=== PATIENT | male | born 1980 | race Caucasian/White ===

== ENCOUNTER → 2017-11-09 14:13 | Outpatient (CLI) | payer MEDICAID, SELFPAY ==
--- NOTE | 2017-11-09 14:15 | US_ITS ---
STUDY: SCROTUM ULTRASOUND REASON FOR EXAM: Male, 37 years old. Pain/tenderness of the left testicle. TECHNIQUE: Ultrasound evaluation of the scrotum was performed with color Doppler and static tejeda-scale imaging. COMPARISON: None. FINDINGS: RIGHT TESTICLE INTRATESTICULAR: There is a normal size of the right testicle. The right testicle measures 4.7 cm x 3.4 cm x 2.7 cm. There is a homogenous echotexture. There is normal arterial and normal venous vascularity. There is no demonstrated right testicular mass or cyst. EXTRATESTICULAR: The epididymis is normal in size. The epididymis head measures 0.5 cm x 0.9 cm x 0.9 cm. There is normal vascularity of the epididymis. There is no demonstrated epididymal cystic structure. There is no demonstrated hydrocele. There is no demonstrated varicocele. There is no demonstrated extratesticular mass or cyst. LEFT TESTICLE INTRATESTICULAR: There is a normal size of the left testicle. The left testicle measures 4.0 cm x 3.8 cm x 2.6 cm. There is a homogenous echotexture. There is normal arterial and normal venous vascularity. There is no demonstrated left testicular mass or cyst. EXTRATESTICULAR: The epididymis is enlarged. The epididymis head measures 1.2 cm x 1.9 cm x 1.4 cm. There is normal vascularity of the epididymis. There is no demonstrated epididymal cystic structure. There is no demonstrated hydrocele. There are prominent extratesticular veins consistent with a varicocele. There is no demonstrated extratesticular mass or cyst. US/Testicular with Arterial Flow IMPRESSION: Enlarged left epididymis suggestive of epididymitis. Small left varicocele. Electronically Signed: Julio C Dent MD at 14:50 EST Tel [phone], Service support ,
== END ==
PROVIDERS: Family Provider Family Medicine; PCP Family Medicine; Visit Provider Family Medicine
DX: N50.812 Left testicular pain (principal)
CPT/HCPCS: 76870; 93976

== ENCOUNTER 2018-01-19 17:23 | Emergency (ER) | payer MEDICAID, SELFPAY ==
[2018-01-19 17:24] VITALS: BP 160/104; PULSE 99; RESP 17; TEMP 36.5; O2SAT 98; BMI 55.3
--- NOTE | 2018-01-19 17:42 | EKG12_ITS ---
Test Reason : CP Blood Pressure : / mmHG Vent. Rate : 098 BPM Atrial Rate : 098 BPM P-R Int : 194 ms QRS Dur : 122 ms QT Int : 374 ms P-R-T Axes : 037 -27 022 degrees QTc Int : 477 ms Normal sinus rhythm Normal ECG Confirmed by TIMOTEO NICHOLE MD ([id number]), purchasing expeditor HANANE MARTIN ([id number]) on 01/22/2018 12:45:58 PM Referred By: Confirmed By:TIMOTEO NICHOLE MD
--- NOTE | 2018-01-19 17:42 | RAD_ITS ---
STUDY: X-RAY CHEST REASON FOR EXAM: Male, 37 years old. Chest pain TECHNIQUE: A single frontal view of the chest was obtained. COMPARISON: June 17, 2017 FINDINGS: The lungs are underaerated. There are minimal increased markings in both lung bases. There is no demonstrated pleural abnormality. There is mild enlargement of the cardiac silhouette. The mediastinum and hilar regions are unremarkable. Normal visualized pulmonary arteries. Normal visualized aortic arch and descending thoracic aorta. The thoracic spine is unremarkable. The visualized ribs, clavicles, and shoulders are unremarkable. There is no demonstrated abnormality of the visualized upper abdomen. RAD/Chest 1 View (Portable) IMPRESSION: No acute cardiopulmonary abnormalities or changes. There is mild enlargement of the cardiac silhouette and bibasilar atelectasis due to low volume inspiration. Electronically Signed: Karen Trevizo MD at 18:10 EDT Tel Direct: [phone], Service support ,
[2018-01-19 17:52] VITALS: BP 157/102; PULSE 86
[2018-01-19 17:55] VITALS: O2SAT 97
[2018-01-19 18:01] VITALS: BP 161/97; PULSE 99
[2018-01-19] MEDS: 0.9% Normal Saline 1,000 ML 1000 ML IV (18:02)
[2018-01-19 18:12] LABS: Absolute Neutrophil Count 5.3 X10^3/uL (2.0-7.7); Basophil# 0.02 X10^3/uL; Basophil% 0.2 % (0-1); Eosinophil# 0.16 X10^3/uL; Eosinophils% 1.9 % (0-5); Hematocrit 40.4 % (40-54); Hemoglobin 13.3 g/dl (13.0-16.5); Lymphocyte % 24.9 % (19-41); Mean Corp Hgb Conc 32.9 g/gl (32-36); Mean Corpuscular Hgb 28.2 pg (27.0-32.0); Mean Corpuscular Volume 85.8 fL (80-94); Mean Platelet Vol. 9.9 fl (6.2-12.0); Monocyte# 0.78 X10^3/uL; Monocyte% 9.3 % (0-10); Neutrophil # 5.31 X10^3/uL (2.7-7.7); Neutrophil % 63.1 % (47-70); Platelet Count 200 K/mm3 (150-450); RBC Distribution Width CV 14.4 % (11.6-14.6); RBC Distribution Width SD 45.5 fl (35.1-43.9); Red Blood Count 4.71 M/mm3 (4.6-6.2); White Blood Count 8.4 K/mm3 (4.4-11.0)
[2018-01-19 18:13] LABS: POSITIVE COUNT NO; POSITIVE DIFFERENTIAL NO; POSITIVE MORPHOLOGY NO
[2018-01-19 18:29] LABS: D-Dimer Quantitative (DVT/PE) 0.31 FEU/ug/m (0.27-0.49)
[2018-01-19 18:30] LABS: Anion Gap 8 (5-15); BUN 15 mg/dL (7-18); BUN/Creat Ratio 23.5 RATIO (10-20); Calcium,Total 8.5 mg/dL (8.5-10.1); Chloride 109 mmol/L (98-107); Creatinine, Serum 0.64 mg/dL (0.70-1.30); EST Glomerular Filtration Rate 151 mL/min (>60); Est Glom Filt Rate - Afr Amer 183 mL/min (>60); Estimated Creatinine Clearance 182.06 ml/min; Glucose 102 mg/dL (74-106); Potassium 3.1 mmol/L (3.5-5.1); Sodium Level 143 mmol/L (136-145)
[2018-01-19] MEDS: Acetaminophen 500 MG Tablet 1000 MG PO (18:40)
[2018-01-19 18:44] VITALS: BP 156/102; PULSE 83; RESP 21; O2SAT 96
--- NOTE | 2018-01-19 18:54 | ED.DCSUM_ITS ---
- ER Visit Summary Date of Service: 01/19/18 Chief Complaint: Chest pain History of Present Illness: The patient is a [address] Marin. He reports that he has chest pain that began today. Initially it was intermittent pain lasting a few seconds at a time. However, he reports is been constant for the past 2 hours. He describes as a stabbing pain on the left side of his chest. Zeta 10 at worst and 6 out of 10 currently. Is worsened by movement and relieved by rest. Reports that he has had nausea and shortness of breath with this. He denies any vomiting or diaphoresis. Physical Examination: Vitals: Stable. Afebrile. General: Well-nourished and well-developed. Head: Normocephalic atraumatic. Neck: Supple, no lymphadenopathy. No JVD. Nontender. Cardiovascular: Regular rate and rhythm. No murmurs. Respiratory: No respiratory distress. Clear to auscultation bilaterally. Abdominal: Soft, nontender, nondistended, normal bowel sounds. No guarding, rebound, or peritoneal signs. Back: Nontender. Extremities: Nontender, no edema. Skin: Normal color, no rash. Neurologic: Alert and oriented ?3. Cranial nerves II through XII are intact. Normal strength and sensation. Psych: Normal affect. Test Results: EKG is sinus at 98 and is unchanged from September of this year. Troponin is negative. D-dimer is negative. Chem-7 is marked potassium 3.1, chloride of 109, creatinine 0.64. CBC is normal. Chest x-ray shows poor inspiration no acute disease. CTA of the chest shows a 5 cm ascending thoracic aneurysm without dissection. No PE. Emergency Department Course and Treatment: Patient was treated with aspirin and Tylenol. He is resting comfortably. I discussed the patient the need for repeat enzymes to make sure this is not cardiac in etiology. He has refused these and has chosen to leave AGAINST MEDICAL ADVICE. He understands that I cannot say for certain this is not cardiac in etiology and still would like to leave. Regarding the ascending thoracic aneurysm I reviewed his prior CTs. This has been listed anywhere from 4-5.2 cm since October 2016. The patient's aortic size index is 1.69 cm/meter squared. I do not believe that this is the source the patient's pain today. Treatment Plan: The patient chose to leave AGAINST MEDICAL ADVICE. Is instructed to follow-up with Dr. Marin as soon as possible. Disposition: To home in improved and stable condition. Impression: 1. Atypical chest pain. 2. 5 cm thoracic aortic aneurysm. 3. Left AGAINST MEDICAL ADVICE. This note was generated with [employer] dictation software. It may contain incorrect words, spelling, and punctuation that were not noted in review of the chart prior to signing ED Disposition - Plan for ED Patient: Disposition: Home or Assisted Living Chief Complaint: Chest Pain Referrals: Abiel Marin DO [Primary Care Provider] -
--- NOTE | 2018-01-19 19:02 | CT_ITS ---
STUDY: CTA CHEST REASON FOR EXAM: Male, 37 years old. Chest pain, shortness of breath RADIATION DOSAGE (If Supplied By Facility): CTDIvol = ( 17.56 ) mGy, DLP = ( 712.34 ) mGycm TECHNIQUE: The examination was performed with the intravenous administration of 100 ml of Isovue 370 contrast material. Post-processing of the angiographic images was performed, with multiplanar reformation and 3D reconstruction. Individualized dose optimization techniques were used for this CT. COMPARISON: Chest radiograph from the same day; chest CTA dated October 11, 2017 FINDINGS: Normal enhancement of the main pulmonary artery and right and left pulmonary arteries without filling defects. There is limited enhancement of the bilateral peripheral pulmonary arteries. The thoracic aorta is unremarkable. There is no demonstrated aortic dissection. The heart is normal in size. The mediastinum is unremarkable. The hilar regions are unremarkable. The airways are unremarkable. There is dependent atelectasis in both lungs. There are no focal airspace opacities. There is no demonstrated pleural abnormality. The soft tissues are unremarkable. There are mild degenerative changes in the visualized spine. There are no significant abnormalities in the visualized upper abdomen. CT/CTA Chest W/WO Contrast IMPRESSION: There is no evidence of pulmonary embolism in the main pulmonary arteries. The distal branches are suboptimally evaluated due to suboptimal contrast bolus and breathing motion. There are no focal parenchymal abnormalities. There is no pleural effusion or significant lymphadenopathy. Electronically Signed: Karen Trevizo MD at 20:15 EDT Tel Direct: [phone], Service support ,
[2018-01-19 19:07] VITALS: BP 143/89; PULSE 85; RESP 16; O2SAT 96
--- NOTE | 2018-01-19 19:54 | NURSING ---
talked with the doctor and stated to me that he will not order the pt any opioid pain medications. the last time the pt was admitted to the hospital he signed out AMA because he wouldn't get pain meds
--- NOTE | 2018-01-19 20:31 | NURSING ---
pt left ama, refused to get a repeat troponin. signed the appropriate paperwork
== END 2018-01-19 20:32 | disposition left against medical advice (07) ==
LOC: ED 17:40
PROVIDERS: Emergency Provider Emergency Medicine; Family Provider Family Medicine; PCP Family Medicine
DX: R07.89 Other chest pain (principal); I71.2 Thoracic aortic aneurysm, without rupture; G47.33 Obstructive sleep apnea (adult) (pediatric); Z72.0 Tobacco use; Z79.899 Other long term (current) drug therapy
CPT/HCPCS: 71045; 71275; 80048; 84484; 85025; 85379; 93005; 96360; 96361; 99285; J7030; Q9967; A4216

== ENCOUNTER 2018-03-02 15:19 | Emergency (ER) | payer MEDICAID, SELFPAY ==
--- NOTE | 2018-03-02 15:19 | DT_ITS ---
This patient was seen during an EMR downtime March 01, 2018 - March 08, 2018. This patient may have a combination of paper and electronic documentation or all paper documentation. All documentation is viewable within the e-chart portion of [facility] for each patient visit.
== END 2018-03-02 16:20 | disposition home or self-care (01) ==
LOC: ED 03-04 07:54
PROVIDERS: Emergency Provider Emergency Medicine; Family Provider Family Medicine; PCP Family Medicine
DX: G43.909 Migraine, unspecified, not intractable, without status migrainosus (principal); I10 Essential (primary) hypertension; F98.8 Other specified behavioral and emotional disorders with onset usually occurring in childhood and adolescence; F41.9 Anxiety disorder, unspecified; F32.9 Major depressive disorder, single episode, unspecified; F17.210 Nicotine dependence, cigarettes, uncomplicated; Z79.899 Other long term (current) drug therapy
CPT/HCPCS: 96372; 99282; J3030

== ENCOUNTER → 2018-03-04 14:30 | Outpatient (CLI) | payer MEDICAID, SELFPAY ==
--- NOTE | 2018-03-04 14:30 | DT_ITS ---
This patient was seen during an EMR downtime March 01, 2018 - March 08, 2018. This patient may have a combination of paper and electronic documentation or all paper documentation. All documentation is viewable within the e-chart portion of [employer] for each patient visit.
[2018-03-09 01:56] LABS: BUN 14 mg/dL (7-18)
[2018-03-09 01:57] LABS: AST(SGOT) 16 U/L (15-37); Alanine Aminotransfer ALT/SGPT 78 U/L (16-61); Albumin, Serum 3.6 g/dL (3.2-5.0); Alkaline Phosphatase 74 U/L (45-117); Anion Gap 9 (5-15); BUN/Creat Ratio 21.5 RATIO (10-20); Chloride 107 mmol/L (98-107); Creatinine, Serum 0.65 mg/dL (0.70-1.30); EST Glomerular Filtration Rate 149 mL/min (>60); Est Glom Filt Rate - Afr Amer 181 mL/min (>60); Globulin 3.7 g/dL (2.2-4.2); Lipase 191 U/L (73-393); Potassium 3.9 mmol/L (3.5-5.1); Protein, Total 7.3 g/dL (6.4-8.2); Sodium Level 140 mmol/L (136-145)
[2018-03-09 01:58] LABS: Glucose 94 mg/dL (74-106)
[2018-03-09 01:59] LABS: Hematocrit 46.5 % (40-54); Hemoglobin 14.9 g/dl (13.0-16.5); Mean Corpuscular Hgb 27.3 pg (27.0-32.0); Mean Corpuscular Volume 85.2 fL (80-94); Red Blood Count 5.46 M/mm3 (4.6-6.2); White Blood Count 9.1 K/mm3 (4.4-11.0)
[2018-03-09 02:00] LABS: Absolute Lymphocyte Count 2.38 X10^3/ul (0.83-4.51); Absolute Neutrophil Count 5.8 X10^3/uL (2.0-7.7); Basophil% 0.2 % (0-1); Eosinophil# 0.13 X10^3/uL; Eosinophils% 1.4 % (0-5); Lymphocyte # 2.38 X10^3/ul (4.0); Lymphocyte % 26.1 % (19-41); Mean Platelet Vol. 10.4 fl (6.2-12.0); Monocyte# 0.79 X10^3/uL; Monocyte% 8.7 % (0-10); Neutrophil # 5.79 X10^3/uL (2.7-7.7); Neutrophil % 63.4 % (47-70); POSITIVE COUNT NO; POSITIVE DIFFERENTIAL NO; POSITIVE MORPHOLOGY NO; Platelet Count 266 K/mm3 (150-450); RBC Distribution Width SD 46.5 fl (35.1-43.9)
[2018-03-09 02:01] LABS: Basophil# 0.02 X10^3/uL
== END ==
PROVIDERS: Family Provider Family Medicine; PCP Family Medicine; Visit Provider Family Medicine
DX: R10.9 Unspecified abdominal pain (principal)
CPT/HCPCS: 36415; 80053; 83690; 85025

== ENCOUNTER → 2018-03-15 10:14 | Outpatient (CLI) | payer MEDICAID, SELFPAY ==
[2018-03-15 12:49] LABS: Anion Gap 10 (5-15); BUN 13 mg/dL (7-18); BUN/Creat Ratio 18.1 RATIO (10-20); Calcium,Total 8.2 mg/dL (8.5-10.1); Chloride 105 mmol/L (98-107); Creatinine, Serum 0.72 mg/dL (0.70-1.30); EST Glomerular Filtration Rate 132 mL/min (>60); Est Glom Filt Rate - Afr Amer 159 mL/min (>60); Glucose 143 mg/dL (74-106); Potassium 3.9 mmol/L (3.5-5.1); Sodium Level 138 mmol/L (136-145)
== END ==
PROVIDERS: Family Provider Family Medicine; PCP Family Medicine
DX: I10 Essential (primary) hypertension (principal); K21.9 Gastro-esophageal reflux disease without esophagitis; G47.33 Obstructive sleep apnea (adult) (pediatric); E66.01 Morbid (severe) obesity due to excess calories; Z68.43 Body mass index [BMI] 50.0-59.9, adult
CPT/HCPCS: 36415; 80048

== ENCOUNTER 2018-06-21 17:35 | Emergency (ER) | payer MEDICAID, SELFPAY ==
[2018-06-21 17:37] VITALS: BP 154/123; PULSE 92; RESP 18; TEMP 36.6; O2SAT 99; BMI 52.7
--- NOTE | 2018-06-21 18:03 | ED.VISSUMM ---
- ER Visit Summary Date of Service: 06/21/18 Chief Complaint: Depressed and suicidal ideation History of Present Illness: The patient is a 38 M history of depression and patient states approximately a week ago he was suicidal and injected methamphetamine because he thought that would kill him. He is not very forthcoming with information because he states he does not want his primary care physician to know about this. He does go to the counseling center. Years ago in [place] he had a prior suicide attempt. And was admitted to a psychiatric facility. Physical Examination: Young male vital signs are stable and afebrile. Initial blood pressure is elevated 154/123. H EENT exam unremarkable. Neck nontender. Lungs clear to auscultation bilaterally. Heart regular rhythm no murmur. Abdomen obese but soft nontender normal bowel sounds no peritoneal signs. He is moving all 4 extremities. Neurovascular intact. No signs of trauma. No track joy. Neurologically is awake alert with no focal motor deficits. Back nontender. Test Results: ED mental health screening labs. CBC normal except for a white count of 12.2. Electrolytes unremarkable. Gap of 5. Tox screen positive for amphetamines. Alcohol negative. Emergency Department Course and Treatment: Patient be evaluated by the counseling center for possible admission to a psychiatric facility for depression and suicidal ideation. Treatment Plan: Repeat exam patient is doing well at 2027. Patient will undergo a counseling center evaluation to determine final disposition after myself and Reinaldo King talk. Disposition: [] Impression: Acute on chronic depression Suicidal ideation This note was generated with [employer] dictation software. It may contain incorrect words, spelling, and punctuation that were not noted in review of the chart prior to signing ED Disposition - Plan for ED Patient: Chief Complaint: Suicidal Referrals: Care Physician,No Primary [Primary Care Provider] -
[2018-06-21 18:50] VITALS: BP 132/91; PULSE 80; RESP 14; O2SAT 96
[2018-06-21 18:54] LABS: Absolute Lymphocyte Count 2.79 X10^3/ul (0.83-4.51); Absolute Neutrophil Count 8.3 X10^3/uL (2.0-7.7); Basophil# 0.02 X10^3/uL; Basophil% 0.2 % (0-1); Hematocrit 47.2 % (40-54); Lymphocyte # 2.79 X10^3/ul (4.0); Lymphocyte % 22.9 % (19-41); Mean Corp Hgb Conc 31.8 g/gl (32-36); Mean Corpuscular Hgb 26.8 pg (27.0-32.0); Mean Corpuscular Volume 84.3 fL (80-94); Monocyte# 1.07 X10^3/uL; Monocyte% 8.8 % (0-10); Neutrophil % 67.9 % (47-70); POSITIVE COUNT NO; POSITIVE DIFFERENTIAL NO; POSITIVE MORPHOLOGY NO; Platelet Count 249 K/mm3 (150-450); RBC Distribution Width SD 49.6 fl (35.1-43.9); White Blood Count 12.2 K/mm3 (4.4-11.0)
[2018-06-21 19:10] LABS: Anion Gap 5 (5-15); BUN 17 mg/dL (7-18); BUN/Creat Ratio 18.2 RATIO (10-20); Calcium,Total 8.6 mg/dL (8.5-10.1); Chloride 104 mmol/L (98-107); Creatinine, Serum 0.93 mg/dL (0.70-1.30); EST Glomerular Filtration Rate 97 mL/min (>60); Est Glom Filt Rate - Afr Amer 118 mL/min (>60); Glucose 117 mg/dL (74-106); Potassium 3.7 mmol/L (3.5-5.1); Sodium Level 138 mmol/L (136-145)
--- NOTE | 2018-06-21 19:15 | ED.RN ---
PT STS DOES NOT WANT MOTRIN, DID NOT GIVE PER PT REQUEST. ALSO REPORTS THAT HE DOESN'T KNOW MEDICATIONS BECAUSE THEY ARE ALWAYS CHANGING.
[2018-06-21 19:45] LABS: Amphetamine Urine VISTA POSITIVE (<1000 ng/mL); Barbiturate Urine VISTA NEGATIVE (< 200 ng/mL); Benzodiazepine Urine VISTA NEGATIVE (< 200 ng/mL); Cocaine Urine VISTA NEGATIVE (< 300 ng/mL); Ecstacy Urine VISTA NEGATIVE (< 500 ng/mL); Methadone Urine VISTA NEGATIVE (< 300 ng/mL); PCP Urine VISTA NEGATIVE (< 25 ng/mL); THC Urine VISTA NEGATIVE (< 50 ng/mL); Vista UDS pH Range 6
[2018-06-21 19:48] LABS: Alcohol, Blood (Medical)-Serum < 3.0 mg/dL
[2018-06-21] MEDS: oxyCODONE 5 MG Tablet PO ×2 (20:17→21:55)
--- NOTE | 2018-06-21 23:22 | ED.RN ---
PT COMPLAINS OF MIDSTERNAL CHEST PAIN THAT STARTED APPROX [id number], DR. WU MADE AWARE, EKG ORDERED.
--- NOTE | 2018-06-21 23:23 | EKG12_ITS ---
Test Reason : [facility] [place] Blood Pressure : / mmHG Vent. Rate : 078 BPM Atrial Rate : 078 BPM P-R Int : 174 ms QRS Dur : 104 ms QT Int : 392 ms P-R-T Axes : 043 -26 010 degrees QTc Int : 446 ms Normal sinus rhythm Leftward axis Inferior infarct , age undetermined , cannot be excluded Abnormal ECG Confirmed by FAROOQ ALLEN, NATY ([id number]), editor city HANANE MARTIN ([id number]) on 06/25/2018 2:04:53 PM Referred By: HUA Confirmed By:NATY TRIVEDI MD
[2018-06-22 00:34] VITALS: BP 131/89; PULSE 75; RESP 16; O2SAT 96
[2018-06-22] MEDS: LORazepam 1 MG Tablet PO (00:43)
--- NOTE | 2018-06-22 01:02 | ED.RN ---
PT REQUESTING ADDITIONAL MEDICATION TO HELP ME RELAX. DR. SEQUEIRA MADE AWARE, NO ADDITIONAL ORDERS AT THIS TIME. PT RESTING IN ROOM WITH EYES CLOSED. SITTER AT BEDSIDE.
--- NOTE | 2018-06-22 01:56 | ED.RN ---
DR. SEQUEIRA MADE AWARE THAT PATIENT IS REQUESTING ADDITIONAL MEDICATION FOR ANXIETY. DR. SEQUEIRA TO ROOM, PT RESTING WITH EYES CLOSED. SITTER REMAINS AT BEDSIDE.
[2018-06-22 06:30] VITALS: BP 118/75; PULSE 73; RESP 16; TEMP 36.5; O2SAT 96
[2018-06-22 06:32] VITALS: BP 118/75; PULSE 73; RESP 16; O2SAT 96
[2018-06-22] MEDS: MELATONIN 10 MG TABLET PO (06:37)
--- NOTE | 2018-06-22 07:16 | ED.RN ---
REQUESTED AND ORDERED BREAKFAST TRAY
[2018-06-22] MEDS: oxyCODONE 5 MG Tablet 10 MG PO (07:50)
[2018-06-22 07:52] VITALS: PULSE 70; RESP 14; TEMP 36.6; O2SAT 97
--- NOTE | 2018-06-22 08:03 | ED.RN ---
[facility] ARRIVED FOR TRANSPORT TO [facility]. BELONGINGS IN [place]AFE COUNTED AND RETURNED.
== END 2018-06-22 08:12 ==
LOC: ED 18:11
PROVIDERS: Emergency Provider Emergency Medicine
DX: F32.9 Major depressive disorder, single episode, unspecified (principal); R45.851 Suicidal ideations; I10 Essential (primary) hypertension; M19.90 Unspecified osteoarthritis, unspecified site; Z72.0 Tobacco use; Z79.899 Other long term (current) drug therapy; Z91.5 Personal history of self-harm
CPT/HCPCS: 36415; 80048; 80307; 80320; 85025; 93005; 99285; G0480

== ENCOUNTER → 2018-07-09 13:30 | Outpatient (CLI) | payer MEDICAID, SELFPAY | PROVIDERS: Family Provider Family Medicine; PCP Family Medicine; Visit Provider Family Medicine | DX: Z20.9 Contact with and (suspected) exposure to unspecified communicable disease (principal); Z51.81 Encounter for therapeutic drug level monitoring ==

== ENCOUNTER 2018-08-04 17:22 | Emergency (ER) | payer MEDICAID, SELFPAY ==
[2018-08-04 17:23] VITALS: BP 156/90; PULSE 85; RESP 20; TEMP 36.1; O2SAT 99; BMI 50.2
[2018-08-04] MEDS: LORazepam 1 MG Tablet PO (18:04)
[2018-08-04 18:11] LABS: Absolute Neutrophil Count 5.4 X10^3/uL (2.0-7.7); Basophil# 0.02 X10^3/uL; Basophil% 0.2 % (0-1); Eosinophil# 0.24 X10^3/uL; Eosinophils% 2.6 % (0-5); Hemoglobin 15.2 g/dl (13.0-16.5); Lymphocyte % 30.1 % (19-41); Mean Corpuscular Hgb 27.7 pg (27.0-32.0); Mean Corpuscular Volume 83.9 fL (80-94); Mean Platelet Vol. 10.5 fl (6.2-12.0); Monocyte# 0.85 X10^3/uL; Monocyte% 9.1 % (0-10); Neutrophil # 5.38 X10^3/uL (2.7-7.7); Neutrophil % 57.8 % (47-70); POSITIVE COUNT NO; POSITIVE DIFFERENTIAL NO; POSITIVE MORPHOLOGY NO; Platelet Count 236 K/mm3 (150-450); RBC Distribution Width CV 15.7 % (11.6-14.6); RBC Distribution Width SD 48.4 fl (35.1-43.9); Red Blood Count 5.48 M/mm3 (4.6-6.2); White Blood Count 9.3 K/mm3 (4.4-11.0)
[2018-08-04 18:24] LABS: Anion Gap 7 (5-15); BUN 11 mg/dL (7-18); BUN/Creat Ratio 13.2 RATIO (10-20); Calcium,Total 8.3 mg/dL (8.5-10.1); Chloride 106 mmol/L (98-107); Creatinine, Serum 0.83 mg/dL (0.70-1.30); EST Glomerular Filtration Rate 111 mL/min (>60); Est Glom Filt Rate - Afr Amer 134 mL/min (>60); Estimated Creatinine Clearance 139.05 ml/min; Glucose 100 mg/dL (74-106); Potassium 3.4 mmol/L (3.5-5.1); Sodium Level 139 mmol/L (136-145)
[2018-08-04] MEDS: SUMAtriptan 6 MG/0.5 ML Vial SC (19:00)
[2018-08-04 19:16] LABS: Alcohol, Blood (Medical)-Serum < 3.0 mg/dL
[2018-08-04 19:24] VITALS: BP 142/100; PULSE 75; RESP 16; O2SAT 96
[2018-08-04] MEDS: Ziprasidone IM 20 MG/ML VIAL IM (20:03)
[2018-08-04 20:13] VITALS: RESP 16
--- NOTE | 2018-08-04 20:25 | ED.RN ---
PT WAS BECOMING MORE AND MORE AGITATED AFTER HIS EX-BOYFRIEND CAME TO SEE HIM. PT BECAME VERY ANGRY AND UPSET, PT EX-BOYFRIEND THEN LEFT. PT STARTED YELLING AND BECOMING EXTREMELY RED IN THE FACE. PT STARTED YELLING I NEED SOMETHING RIGHT NOW TO CALM ME DOWN AND I DON'T WANT A PILL, I NEED A SHOT. I ATTEMPTED TO CALM PT BY TALKING TO HIM AND TOLD HIM THAT I WOULD GO TALK TO DR KIRKPATRICK FOR MORE MEDICATION. PT WAS ORDERED ORAL ATIVAN BY DR KIRKPATRICK. PT WAS BECOMING MORE DISTRAUGHT AND YELLING MORE AND MORE.
[2018-08-04 20:33] LABS: Amphetamine Urine VISTA POSITIVE (<1000 ng/mL); Barbiturate Urine VISTA NEGATIVE (< 200 ng/mL); Benzodiazepine Urine VISTA NEGATIVE (< 200 ng/mL); Cocaine Urine VISTA NEGATIVE (< 300 ng/mL); Ecstacy Urine VISTA NEGATIVE (< 500 ng/mL); Methadone Urine VISTA NEGATIVE (< 300 ng/mL); PCP Urine VISTA NEGATIVE (< 25 ng/mL); THC Urine VISTA NEGATIVE (< 50 ng/mL); Vista UDS pH Range 6
[2018-08-04] MEDS: Midazolam 2 MG/2 ML Syringe IM ×2 (20:39→22:42)
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
--- NOTE | 2018-08-04 20:53 | ED.RN ---
KIERSTEN FROM [facility] IS HERE TO SEE PT.
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
[2018-08-04 21:21] VITALS: RESP 18
[2018-08-04] MEDS: Gabapentin 600 MG Tablet PO (22:39)
[2018-08-04] MEDS: Pramipexole Di-HCl 0.25 MG Tablet PO (22:40)
[2018-08-04] MEDS: oxyCODONE 5 MG Tablet 10 MG PO (22:40)
[2018-08-04] MEDS: Haloperidol Lactate 5 MG/ML Vial IM (22:42)
[2018-08-04 22:56] VITALS: BP 133/94; PULSE 88; RESP 16; O2SAT 97
[2018-08-04 23:10] VITALS: RESP 16
--- NOTE | 2018-08-04 23:10 | EKG12_ITS ---
Test Reason : [facility] [place] Blood Pressure : / mmHG Vent. Rate : 083 BPM Atrial Rate : 083 BPM P-R Int : 170 ms QRS Dur : 120 ms QT Int : 390 ms P-R-T Axes : 048 007 032 degrees QTc Int : 458 ms Normal sinus rhythm Non-specific intra-ventricular conduction delay Borderline ECG Confirmed by DAYANARA ALLEN, TIMOTEO ([id number]), science editor HANANE MARTIN ([id number]) on 08/05/2018 3:47:35 PM Referred By: DR KIRKPATRICK Confirmed By:TIMOTEO NICHOLE MD
[2018-08-04 23:33] LABS: AST(SGOT) 12 U/L (15-37); Alanine Aminotransfer ALT/SGPT 32 U/L (16-61); Albumin, Serum 3.3 g/dL (3.2-5.0); Alkaline Phosphatase 76 U/L (45-117); Bilirubin, Direct 0.06 mg/dL (0.00-0.30); Globulin 3.5 g/dL (2.2-4.2); Protein, Total 6.8 g/dL (6.4-8.2)
[2018-08-05] VITALS (14 sets, daily range): BP systolic 128–169; BP diastolic 69–93; PULSE 72–100; RESP 13–20; TEMP 36.4; O2SAT 97
--- NOTE | 2018-08-05 01:03 | ED.RN ---
[facility] called and requesting more information about patient. information obtained and faxed at this time
--- NOTE | 2018-08-05 01:57 | CT_ITS ---
STUDY: CT ABDOMEN AND PELVIS WITHOUT CONTRAST REASON FOR EXAM: Male, 38 years old. Sagittal ideation low back pain, history of hypertension, AAA. RADIATION DOSAGE (If Supplied By Facility): CTDIvol = ( 23.98 ) mGy, DLP = ( 1485.72 ) mGycm TECHNIQUE: Transaxial 2.5 mm images were obtained from the dome of the diaphragm to the symphysis pubis without oral contrast, and without intravenous contrast. Sagittal and coronal images were reconstructed. This examination is limited for the evaluation of gastrointestinal, solid organs and vascular structures due to the lack of intravenous and oral contrast. There is obesity, the entirety of soft tissue is not imaged. Individualized dose optimization techniques were used for this CT. COMPARISON: CT abdomen and pelvis 12/12/2016. CTA chest 01/19/2018. FINDINGS: There is compression of the basilar parenchyma. The visualized portions of the heart are within normal limits. There is decreased attenuation of the enlarged liver consistent with steatosis. Distended gallbladder and normal extrahepatic biliary system. Gallbladder wall cannot be assessed due to motion. Normal spleen. Normal pancreas. Normal bilateral adrenal glands. Stable vague low-attenuation right mid renal cortex.. Normal left kidney. Normal visualized stomach. Normal small intestine. Normal colon. The appendix is visualized and appears normal. Minimal arteriosclerosis of the abdominal aorta and pelvic arteries. Normal inferior vena cava. Normal retroperitoneum. Normal urinary bladder. There are prostatic calcifications. Normal abdominal wall. Mild degenerative changes bilateral hip joints and lumbar spine, chronic bilateral L5 spondylolysis without anterolisthesis. CT/Abdomen/Pelvis without Cont IMPRESSION: There is no appendicitis, colitis, ascites, hydronephrosis abscess, collection, perforation or obstruction. Hepatomegaly, hepatic steatosis, morbid obesity, minimal arteriosclerosis, prostate calcification and degenerative changes felt to be not acute findings. Electronically Signed: Maria Elena Carey MD at 2:44 EST , Service support ,
--- NOTE | 2018-08-05 02:01 | ED.RN ---
[facility] called requesting repeat CT scan to determine if patients AAA has increased at all from previous
[2018-08-05] MEDS: Metoprolol(XL)Succ 200 MG Tablet PO (08:48)
[2018-08-05] MEDS: Losartan Potassium 100 MG Tablet PO (08:49)
[2018-08-05] MEDS: Citalopram 40 MG TABLET PO (08:49)
[2018-08-05] MEDS: oxyCODONE 5 MG Tablet 10 MG PO (08:49)
[2018-08-05] MEDS: Gabapentin 800 MG Tablet 1600 MG PO (09:00)
[2018-08-05] MEDS: Ziprasidone IM 20 MG/ML VIAL IM ×2 (09:00→16:10)
[2018-08-05] MEDS: SUMAtriptan 6 MG/0.5 ML Vial SC (16:25)
--- NOTE | 2018-08-05 18:02 | NURSING ---
LOUISE, [facility], HERE FOR PATIENT
== END 2018-08-05 19:35 ==
LOC: ED 18:59
PROVIDERS: Emergency Provider Emergency Medicine
DX: F32.9 Major depressive disorder, single episode, unspecified (principal); T14.91XA Suicide attempt, initial encounter; X78.8XXA Intentional self-harm by other sharp object, initial encounter; Y93.9 Activity, unspecified; Y92.9 Unspecified place or not applicable; Y99.9 Unspecified external cause status; I10 Essential (primary) hypertension; E66.9 Obesity, unspecified; Z72.0 Tobacco use; Z79.899 Other long term (current) drug therapy
CPT/HCPCS: 74176; 80048; 80076; 80307; 80320; 85025; 93005; 96372; 99285; G0480; J3030; J3486

== ENCOUNTER 2019-02-24 03:38 | Emergency (ER) | payer MEDICAID, SELFPAY ==
[2019-02-24 03:40] VITALS: BP 209/134; PULSE 117; RESP 24; TEMP 36.6; O2SAT 98; BMI 49.2
[2019-02-24 03:43] VITALS: TEMP 36.6
--- NOTE | 2019-02-24 04:03 | ED.RN ---
MADE AWARE OF SEPSIS ALERT. STATES SHE WILL SEE THE PATIENT PRIOR TO MAKING DECISIONS ON ORDERS.
--- NOTE | 2019-02-24 04:09 | CT_ITS ---
HISTORY: LOWER ABD PAIN ON/OFF X DAYS, CONSTANT AND SEVERE TODAY, HX HTN EXAMINATION: CT Abdomen And Pelvis W/ Contrast TECHNIQUE: Helically acquired images were obtained of the abdomen and pelvis following IV contrast. A radiation dose optimization technique was used for this scan. IV Contrast dosage and agent: 100ML Isovue 300 Oral contrast: None. COMPARISON: 08/05/2018 FINDINGS: Lower thorax: Minor dependent atelectasis, not unusual. No pleural effusion or pericardial effusion. Mild hepatomegaly, unchanged. No biliary dilatation or focal hepatic lesion. Normal gallbladder, spleen, and pancreas. Both kidneys are normal in position. Bilateral renal opacification without evidence of hydronephrosis or suspicious renal lesion. Probable small parapelvic cyst at the upper pole of the right kidney. Adrenal glands are not enlarged. Abdominal aorta is atherosclerotic and normal in caliber. Patent IVC. No ascites or retroperitoneal lymph node enlargement. GI tract: Constipation pattern. No obstruction. Normal appendix. No pericolonic inflammatory changes seen. Pelvis: No free fluid or lymph node enlargement. Normal urinary bladder. The prostate gland is not enlarged. Bones: No acute osseous abnormality. CT/Abdomen/Pelvis WITH Contrast IMPRESSION: 1. Constipation pattern. No acute abdominal disease identified. Normal appendix. 2. Mild hepatomegaly, unchanged. Individualized dose optimization techniques were used for this CT. at 0623 Reported and signed by: Darrell Saldana MD Electronically Signed: Darrell Saldana, at 6:22 EDT Tel , Service support ,
[2019-02-24] MEDS: Ondansetron 4 MG/2 ML Vial IV (04:16)
[2019-02-24] MEDS: Morphine 4 MG/ML Syringe IV ×2 (04:16→05:43)
[2019-02-24 04:18] LABS: Mucous, Urine 0 SEEN /hpf (<or=2+); Red Blood Cells-Urine 0 SEEN /hpf (0-5)
[2019-02-24 04:19] LABS: Absolute Lymphocyte Count 2.89 X10^3/ul (0.83-4.51); Absolute Neutrophil Count 7.5 X10^3/uL (2.0-7.7); Basophil# 0.03 X10^3/uL; Basophil% 0.3 % (0-1); Eosinophil# 0.17 X10^3/uL; Eosinophils% 1.4 % (0-5); Hematocrit 47.1 % (40-54); Hemoglobin 15.4 g/dl (13.0-16.5); Lymphocyte # 2.89 X10^3/ul (4.0); Lymphocyte % 24.4 % (19-41); Mean Corp Hgb Conc 32.7 g/gl (32-36); Mean Corpuscular Volume 82.6 fL (80-94); Mean Platelet Vol. 10.1 fl (6.2-12.0); Monocyte# 1.12 X10^3/uL; Monocyte% 9.5 % (0-10); Neutrophil # 7.52 X10^3/uL (2.7-7.7); Neutrophil % 63.6 % (47-70); POSITIVE COUNT NO; POSITIVE DIFFERENTIAL NO; POSITIVE MORPHOLOGY NO; Platelet Count 235 K/mm3 (150-450); RBC Distribution Width CV 14.9 % (11.6-14.6); RBC Distribution Width SD 44.3 fl (35.1-43.9); White Blood Count 11.8 K/mm3 (4.4-11.0)
[2019-02-24 04:19] LABS: Color, Urine Yellow (Yellow); Glucose, Dipstick Normal (Normal); Ketone-Dipstick Negative (Negative); Leukocyte Esterase-Dipstick 25 /ul (Negative); Nitrite-Dipstick Negative (Negative); Occult Blood-Urine 10 /ul (Negative); Protein-Dipstick Negative (Negative); Urine Bilirubin Dipstick Negative (Negative); Urine Clarity Clear (Clear); Urine Urobilinogen Normal (Normal)
[2019-02-24 04:26] LABS: Bacteria RARE /hpf (None Seen); Squamous Epithelial Cells - UA 0-5 SEEN /hpf (0-5); White Blood Cells 0-5 SEEN /hpf (0-5)
[2019-02-24 04:32] LABS: ALB/GLOB Ratio 0.8 RATIO (0.9-2.4); AST(SGOT) 17 U/L (15-37); Alanine Aminotransfer ALT/SGPT 39 U/L (16-61); Albumin, Serum 3.1 g/dL (3.2-5.0); Alkaline Phosphatase 75 U/L (45-117); Anion Gap 7 (5-15); BUN 18 mg/dL (7-18); BUN/Creat Ratio 26.9 RATIO (10-20); Calcium,Total 8.7 mg/dL (8.5-10.1); Chloride 104 mmol/L (98-107); Creatinine, Serum 0.67 mg/dL (0.70-1.30); EST Glomerular Filtration Rate 142 mL/min (>60); Est Glom Filt Rate - Afr Amer 172 mL/min (>60); Estimated Creatinine Clearance 172.26 ml/min; Globulin 3.9 g/dL (2.2-4.2); Glucose 131 mg/dL (74-106); Lipase 261 U/L (73-393); Potassium 3.7 mmol/L (3.5-5.1); Sodium Level 141 mmol/L (136-145)
[2019-02-24 04:37] VITALS: BP 168/118; PULSE 96; RESP 18; O2SAT 99
--- NOTE | 2019-02-24 04:48 | ED.VISSUMM ---
- ER Visit Summary Date of Service: 02/24/19 Chief Complaint: Abdominal pain History of Present Illness: The patient is a 38 M presenting with abdominal pain. He states this has been ongoing for the past 4 days. He has pain around his umbilicus. He states that this has been worsening over the past 4 days. He has nausea with no vomiting. He denies diarrhea or constipation. Denies urinary complaints. Denies fever. Denies chest pain or shortness of breath. He has a history of aortic aneurysm which is being monitored. He has history of diabetes and hypertension. He states he stopped taking his medication in July. He states he has a scheduled appointment with his primary care physician to restart his medications. Physical Examination: Vitals are stable. Blood pressure 209/134, heart rate 117. Patient is afebrile. Alert no acute distress. HEENT exam is unremarkable. Neck is supple. Lungs are clear and equal bilaterally. Heart is regular rate and rhythm. Abdomen is soft periumbilical tenderness with no rebound or guarding Extremities are unremarkable. Skin is warm and dry. No focal neurologic deficit. Remainder of exam is unremarkable. Emergency Department Course and Treatment: Patient was given IV fluids, morphine, Zofran. CBC shows a white count 11.8. Chemistries unremarkable other than glucose 131. Liver lipase are normal. Urinalysis unremarkable. CT abdomen pelvis shows constipation pattern. No acute abdominal disease identified. Normal appendix. Mild hepatomegaly, unchanged. Repeat blood pressure 163/100. I offered to refill his blood pressure medications. He states he will see his primary care physician in the next 1 to 2 days. He declined medication refill. He is advised importance of blood pressure recheck and blood pressure control. He states he understands. He is given mag citrate. He is advised to follow up with his primary care physician. Advised return ED if worsening complaints. Disposition: Discharge home Impression: Abdominal pain, constipation, hypertension, noncompliance This note was generated with [employer] dictation software. It may contain incorrect words, spelling, and punctuation that were not noted in review of the chart prior to signing ED Disposition - Plan for ED Patient: Instructions: ED Abdominal Pain Unkn Cause Referrals: Abiel Marin DO [Primary Care Provider] -
[2019-02-24 05:13] VITALS: BP 163/100; PULSE 78; RESP 18
[2019-02-24] MEDS: proMETHazine 25 MG/ML Syringe 6.25 MG IV (05:42)
--- NOTE | 2019-02-24 06:44 | ED.DEP ---
ED Disposition - Plan for ED Patient: Instructions: ED Abdominal Pain Unkn Cause Referrals: Abiel Marin DO [Primary Care Provider] -
[2019-02-24 06:52] VITALS: BP 186/128; PULSE 104; RESP 22; O2SAT 96
--- NOTE | 2019-02-24 06:53 | ED.RN ---
PT EXPRESSED DISPLEASURE WITH HIS DIAGNOSIS OF CONSTIPATION AND STATED I CAN'T BELIEVE THIS IS CONSTIPATION, I DON'T WANT THE MEDICATION TO GO POOP, AND IM NOT WAITING FOR DISCHARGE PAPERS. DR. GUTIERREZ AWARE OF ELEVATED VITALS AT D/C AND PT REFUSAL OF MEDICATION AND D/C PAPERS.
== END 2019-02-24 06:54 | disposition home or self-care (01) ==
PROVIDERS: Emergency Provider Emergency Medicine; Family Provider Family Medicine; PCP Family Medicine
DX: R10.9 Unspecified abdominal pain (principal); K59.00 Constipation, unspecified; E11.9 Type 2 diabetes mellitus without complications; I10 Essential (primary) hypertension; R16.0 Hepatomegaly, not elsewhere classified; Z72.0 Tobacco use; Z91.14 Patient's other noncompliance with medication regimen; Z86.79 Personal history of other diseases of the circulatory system
CPT/HCPCS: 74177; 80053; 81001; 83690; 85025; 96374; 96375; 96376; 99285; J7030; J7040; Q9967; A4216; J2405

== ENCOUNTER → 2019-03-01 15:50 | Outpatient (CLI) | payer MEDICAID, SELFPAY ==
[2019-02-28 08:59] VITALS: BMI 49.2
[2019-03-01 18:21] LABS: HIV - WCH Non-Reactive (Nonreactive); Hepatitis C Antibody Non-Reactive (Nonreactive)
[2019-03-01 21:26] LABS: Chlamydia Trachomatis by PCR Negative (Negative); Neisserai gonorrhoeae by PCR Negative (Negative); Probe Check PASS; Sample Adequacy Control PASS; Specimen Processing Control PASS
[2019-03-04 03:32] LABS: Rapid Plasmin Reagin (RPR) NONREACTIVE (NONREACTIVE)
== END ==
PROVIDERS: Family Provider Family Medicine; PCP Family Medicine; Visit Provider Family Medicine
DX: Z20.9 Contact with and (suspected) exposure to unspecified communicable disease (principal)
CPT/HCPCS: 36415; 86592; 86703; 86803; 87491; 87591

== ENCOUNTER 2019-07-22 19:09 | Emergency (ER) | payer MEDICAID, SELFPAY ==
[2019-02-28 08:59] VITALS: BMI 49.2
[2019-07-22 19:10] VITALS: BP 180/127; PULSE 104; RESP 20; TEMP 36.2; O2SAT 99; BMI 47.5
--- NOTE | 2019-07-22 19:40 | RAD_ITS ---
STUDY: X-RAY CHEST REASON FOR EXAM: Male, 39 years old. Chest pain. TECHNIQUE: Portable chest. COMPARISON: 01/19/2018. FINDINGS: The lungs are clear and expanded. There is no demonstrated pleural abnormality. Normal size heart. Normal mediastinum and devi. Normal visualized pulmonary arteries. Normal visualized aortic arch and descending thoracic aorta. Normal visualized thoracic spine. Normal visualized ribs, clavicles, and shoulders. There is no demonstrated abnormality of the visualized soft tissue structures of the upper abdomen. RAD/Chest 1 View (Portable) IMPRESSION: Normal x-ray examination of the chest. Electronically Signed: Mary Irvin MD at 20:06 EDT Tel , Service support ,
[2019-07-22 19:44] VITALS: O2SAT 99
[2019-07-22 20:08] LABS: Absolute Lymphocyte Count 2.81 X10^3/uL (0.83-4.51); Absolute Neutrophil Count 5.6 X10^3/uL (2.0-7.7); Basophil# 0.07 X10^3/uL; Basophil% 0.7 % (0-1); Eosinophils% 2.1 % (0-5); Hematocrit 51.5 % (40-54); Hemoglobin 16.2 g/dL (13.0-16.5); Lymphocyte # 2.81 X10^3/ul (4.0); Lymphocyte % 29.4 % (19-41); Mean Corp Hgb Conc 31.5 g/dL (32-36); Mean Corpuscular Hgb 27.5 pg (27.0-32.0); Mean Corpuscular Volume 87.4 fL (80-94); Mean Platelet Vol. 9.7 fl (6.2-12.0); Monocyte# 0.82 X10^3/uL; Monocyte% 8.6 % (0-10); NRBC Flagged by Analyzer 0 % (0-5); Neutrophil # 5.61 X10^3/uL (2.7-7.7); Neutrophil % 58.7 % (47-70); Platelet Count 282 K/mm3 (150-450); RBC Distribution Width CV 13.7 % (11.6-14.6); Red Blood Count 5.89 M/mm3 (4.6-6.2); White Blood Count 9.6 K/mm3 (4.4-11.0)
--- NOTE | 2019-07-22 20:16 | ED.RN ---
Addendum entered by Shonda Young 07/22/19 20:18: I encouraged pt to return to ED at any time. Original Note: While trying to medicate pt he became anxious and agitated. Explained headache cocktail meds. PT asked what he was getting for anxiety, I said we were starting with Benadryl first and then I could ask the doctor for something different. PT states Benadryl doesn't work like that for me. PT requested IV out. PT stated his headache and chest pain were gone and that was what he was worried about. PT states he can manage his anxiety at home better with distraction, a cigarette and Mountain Dew. Dr. Muñoz updated. PT left with his mother who is his health advisor. PT stated he was sorry for wasting our time..
[2019-07-22 20:28] LABS: Anion Gap 5 (5-15); BUN 16 mg/dL (7-18); BUN/Creat Ratio 21.9 RATIO (10-20); Calcium,Total 9.3 mg/dL (8.5-10.1); Chloride 103 mmol/L (98-107); Creatinine, Serum 0.73 mg/dL (0.70-1.30); EST Glomerular Filtration Rate 128 mL/min (>60); Est Glom Filt Rate - Afr Amer 155 mL/min (>60); Estimated Creatinine Clearance 156.58 ml/min; Glucose 97 mg/dL (74-106); Sodium Level 141 mmol/L (136-145)
--- NOTE | 2019-07-23 00:07 | ED.VIS.GEN ---
History of Present Illness Chief Complaint: Chest Pain Detail of Chief Complaint: Chest pain, migraine, anxiety Informant: Patient Onset: - - Chest pain today, migraine x4 days Narrative: Patient presents with what he believes is an anxiety attack. He had an Abilify shot 3 weeks ago for his bipolar disorder. This is the first time he is received Abilify. He states since that time he had frequent migraines and several anxiety attacks. He states he woke up this afternoon with chest pain and sweating. Symptoms lasted approximately 30 minutes and then resolved. Patient was initially seen an hour and a half after his complaints. Patient states he had a migraine headache for the past 4 days. It usually occurs around the left eye or the left occiput. He has been taking Imitrex with minimal improvement. His primary concern is that he has been told he has a history of aortic aneurysm. Past Medical History - Allergies and Home Meds Allergies/Adverse Reactions: Allergies ketorolac [From Toradol] Allergy (Verified 07/22/19 19:14) Other cephalexin [From Keflex] Adverse Reaction (Verified 07/22/19 19:14) Vomiting divalproex sodium [From Depakote] Adverse Reaction (Verified 07/22/19 19:14) dizzy Opioids - Morphine Analogues Adverse Reaction (Verified 07/22/19 19:14) irritable topiramate Adverse Reaction (Verified 07/22/19 19:14) Unknown varenicline [From Chantix] Adverse Reaction (Verified 07/22/19 19:14) irritation zolpidem Adverse Reaction (Verified 07/22/19 19:14) sleepwalking Primary Care Physician: Abiel Marin DO [Primary Care Provider] - Prior records reviewed: Yes Past Medical History: - - Reviewed Surgical History: tonsillectomy Lives: With Family Smoking Status: Current every day smoker - Family History Maternal Family History: Family History (Last Reviewed 03/24/18 @ 11:27 by Vanessa Blanco) Mother Diabetes Hypertension Heart disease Father Diabetes Hypertension Sister Myocardial infarction Family History: Reports: - - mother had heart attack 60 Paternal Family History: Family History (Last Reviewed 03/24/18 @ 11:27 by Vanessa Blanco) Mother Diabetes Hypertension Heart disease Father Diabetes Hypertension Sister Myocardial infarction Family History: Reports: - - father had heart disease in his late 30's Review of Systems General: Denies: Chills, Fever Eyes: Denies: Visual changes - bilaterally ENT: Denies: Bilateral ear pain Cardiovascular: Reports: Chest pain - Now resolved Respiratory: Denies: Dyspnea, Cough Gastrointestinal: Denies: Abdominal pain, Nausea, Vomiting, Diarrhea Musculoskeletal: Denies: Extremity Pain Skin: Denies: Rash Neurological: Reports: Headache Psych: Reports: Anxiety Physical Exam Inital Vital Signs reviewed: Yes General: Well nourished, Well developed Head: Normocephalic ENT: Moist mucous membranes Neck: Supple Cardiovascular: Regular rate, Regular rhythm Respiratory: No distress, CTA bilaterally Abdomen: Soft, Nontender, Hypoactive bowel sounds Extremities: Nontender Skin: Normal color, Diaphoresis Neurological: Alert, Oriented x3 Psychological: - - Anxious Diagnostic/Tx/Re-eval Impressions Chest X-Ray 07/22/19 19:40 IMPRESSION: Normal x-ray examination of the chest. Electronically Signed: Mary Irvin MD at 20:06 EDT Tel , Service support , 07/22/19 19:40 Chest 1 View (Portable) [RAD] Stat Laboratory Results 07/22/19 07/22/19 19:53 19:53 WBC 9.6 RBC 5.89 Hgb 16.2 Hct 51.5 MCV 87.4 MCH 27.5 MCHC 31.5 L RDW Std Deviation 44.0 H RDW Coeff of Funmilayo 13.7 Plt Count 282 MPV 9.7 Immature Gran % (Auto) 0.500 Neut % (Auto) 58.7 Lymph % (Auto) 29.4 Johnston % (Auto) 8.6 Eos % (Auto) 2.1 Baso % (Auto) 0.7 Absolute Neuts (auto) 5.6 Absolute Lymphs (auto) 2.81 Nucleated RBC % 0 Sodium 141 Potassium 4.0 Chloride 103 Carbon Dioxide 33.0 H Anion Gap 5 BUN 16 Creatinine 0.73 Estim Creat Clear Calc 156.58 Est GFR (MDRD) Af Amer 155 Est GFR (MDRD) Non-Af 128 BUN/Creatinine Ratio 21.9 H Glucose 97 Calcium 9.3 Troponin I < 0.015 - EKG Initial EKG Interpretation: Sinus Rhythm - Sinus at 95 with no acute ischemia. - Medical Decision Making At the time of my examination patient states that his chest pain was completely resolved. Blood work was unremarkable. EKG is normal. Patient was given Reglan and Benadryl for migraine. He has an allergy to Toradol and to opioids. I ordered a CTA of his chest once I obtained normal creatinine. I was notified by the nursing staff the patient states that he has no chest pain and he just wants to go home and deal with his anxiety. He was getting dressed and left the emergency room before I could get back to talk to him. ED Disposition - Plan for ED Patient: Disposition: Against Medical Advice Diagnosis: Chest pain, Migraine, Anxiety Referrals: Abiel Marin DO [Primary Care Provider] -
== END 2019-07-22 20:20 | disposition left against medical advice (07) ==
LOC: ED 20:00
PROVIDERS: Emergency Provider Emergency Medicine; Family Provider Family Medicine; PCP Family Medicine
DX: R07.9 Chest pain, unspecified (principal); G43.909 Migraine, unspecified, not intractable, without status migrainosus; F41.9 Anxiety disorder, unspecified; F31.9 Bipolar disorder, unspecified; F17.200 Nicotine dependence, unspecified, uncomplicated; Z79.899 Other long term (current) drug therapy; Z88.5 Allergy status to narcotic agent; Z88.1 Allergy status to other antibiotic agents
CPT/HCPCS: 71045; 80048; 84484; 85025; 93005; 99285; J7030; A4216

== ENCOUNTER 2019-07-23 10:15 | Emergency (ER) | payer MEDICAID, SELFPAY ==
[2019-07-22 19:10] VITALS: BMI 47.5
[2019-07-23 10:16] VITALS: BP 208/134; PULSE 111; RESP 18; TEMP 36.4; O2SAT 98; BMI 47.9
--- NOTE | 2019-07-23 10:31 | CT_ITS ---
STUDY: CTA CHEST, ABDOMEN AND PELVIS WITHOUT CONTRAST REASON FOR EXAM: Male, 39 years old. Chest pain which radiates to the back RADIATION DOSAGE (If Supplied By Facility): CTDIvol = ( 28.97 ) mGy, DLP = ( 1873.85 ) mGycm TECHNIQUE: Transaxial images were obtained through the chest, abdomen and pelvis without oral contrast, and with intravenous contrast. Sagittal and coronal images were reconstructed. Individualized dose optimization techniques were used for this CT. COMPARISON: CT of the abdomen and pelvis dated 02/24/2019. CT of the chest dated 01/19/2018. FINDINGS: There is a stable granuloma in the lingula. There are no pulmonary infiltrates or pleural effusions. There is no pneumothorax. There is no evidence of pulmonary embolus. There is no thoracic lymphadenopathy. The heart and pericardium are within normal limits. There is stable ectasia of the aortic root, measuring up to 4.8 cm. The aortic arch, descending thoracic aorta and abdominal aorta are normal caliber. There is no evidence of aortic dissection. The great vessels are patent and normal in caliber. The celiac artery, superior mesenteric artery, bilateral renal arteries and inferior mesenteric artery are patent and normal in caliber. There are no calcified gallstones present. The liver, spleen, pancreas, adrenal glands and kidneys are within normal limits. There is no bowel obstruction or inflammation. The appendix is normal. There is no free air, free fluid or lymphadenopathy. There are no destructive osseous lesions. CT/CT ANGIO ABD&PEL W/O&W/DYE IMPRESSION: Stable ectasia of the aortic root. Otherwise, normal caliber aorta. No evidence of thoracic aortic aneurysm or dissection. No evidence of pulmonary embolus. No pulmonary infiltrates or pleural effusions. No bowel obstruction or inflammation. Normal appendix. Electronically Signed: Alex Gottlieb, at 11:29 EDT Tel , Service support ,
--- NOTE | 2019-07-23 10:31 | CT_ITS ---
STUDY: CTA CHEST, ABDOMEN AND PELVIS WITHOUT CONTRAST REASON FOR EXAM: Male, 39 years old. Chest pain which radiates to the back RADIATION DOSAGE (If Supplied By Facility): CTDIvol = ( 28.97 ) mGy, DLP = ( 1873.85 ) mGycm TECHNIQUE: Transaxial images were obtained through the chest, abdomen and pelvis without oral contrast, and with intravenous contrast. Sagittal and coronal images were reconstructed. Individualized dose optimization techniques were used for this CT. COMPARISON: CT of the abdomen and pelvis dated 02/24/2019. CT of the chest dated 01/19/2018. FINDINGS: There is a stable granuloma in the lingula. There are no pulmonary infiltrates or pleural effusions. There is no pneumothorax. There is no evidence of pulmonary embolus. There is no thoracic lymphadenopathy. The heart and pericardium are within normal limits. There is stable ectasia of the aortic root, measuring up to 4.8 cm. The aortic arch, descending thoracic aorta and abdominal aorta are normal caliber. There is no evidence of aortic dissection. The great vessels are patent and normal in caliber. The celiac artery, superior mesenteric artery, bilateral renal arteries and inferior mesenteric artery are patent and normal in caliber. There are no calcified gallstones present. The liver, spleen, pancreas, adrenal glands and kidneys are within normal limits. There is no bowel obstruction or inflammation. The appendix is normal. There is no free air, free fluid or lymphadenopathy. There are no destructive osseous lesions. CT/CTA Chest W/WO Contrast IMPRESSION: Stable ectasia of the aortic root. Otherwise, normal caliber aorta. No evidence of thoracic aortic aneurysm or dissection. No evidence of pulmonary embolus. No pulmonary infiltrates or pleural effusions. No bowel obstruction or inflammation. Normal appendix. Electronically Signed: Alex Gottlieb, at 11:29 EDT Tel , Service support ,
--- NOTE | 2019-07-23 10:32 | EKG12_ITS ---
Test Reason : CP Blood Pressure : / mmHG Vent. Rate : 095 BPM Atrial Rate : 095 BPM P-R Int : 174 ms QRS Dur : 116 ms QT Int : 350 ms P-R-T Axes : 000 -28 -13 degrees QTc Int : 439 ms Normal sinus rhythm Normal ECG Confirmed by DAYANARA ALLEN, TIMOTEO ([id number]), continuity editor NOEMY FRANCISCO ([id number]) on 07/26/2019 11:25:55 AM Referred By: EMORY Confirmed By:TIMOTEO NICHOLE MD
--- NOTE | 2019-07-23 10:37 | ED.VIS.CHEST ---
History of Present Illness Chief Complaint: Chest Pain Informant: Patient Onset: Yesterday - About 10-12 hours Activity at onset: Rest Timing: Continuous, Waxes and wanes Quality: Pain Location: - - epigastrium/lower chest; radiates to the low back Worsened By: Nothing Relieved By: Nothing Associated Symptoms: Diaphoresis, Dyspnea, Lightheadedness - Without syncope, Palpitations - Fluttering at times. Negative for: Cough, Fever, Acid Reflux Narrative: Patient has had several episodes, about 2 or 3 total prior to this 1, of this chest discomfort in the past month. The first 1 occurred the night of his first Abilify injection, so he thought it was related. He called the office of the physician who gave it to them, they told him that they were probably side effects he would have to right out. He states prior to that he was taking oral Abilify for bipolar that he had no issues with, so he has since been taken off of that. He states he is supposed to be on other medications that he does not take admittedly. He had a history of some type of heart aneurysm. He was sent to [facility] where he was for a week because of this and did not have surgery but told that he needed to lose weight. He was supposed to have this monitored which he has been doing through his family doctor, states he has had several CT scans evaluating this aneurysm. Since trying to lose weight he has actually lost around 100 pounds. Today, these symptoms started last night and have been waxing and waning all night and persistent which has not happened before. He has been sweating profusely. - Past Medical History (1) Obstructive sleep apnea Status: Chronic (2) Anxiety Status: Chronic (3) Migraine Status: Chronic (4) Aortic root dilatation Status: Chronic (5) HTN (hypertension) Status: Chronic (6) SVT (supraventricular tachycardia) Status: Chronic (7) Bipolar II disorder Status: Chronic Past Medical History - Allergies and Home Meds Allergies/Adverse Reactions: Allergies ketorolac [From Toradol] Allergy (Verified 07/23/19 10:22) Other cephalexin [From Keflex] Adverse Reaction (Verified 07/23/19 10:22) Vomiting divalproex sodium [From Depakote] Adverse Reaction (Verified 07/23/19 10:22) dizzy Opioids - Morphine Analogues Adverse Reaction (Verified 07/23/19 10:22) irritable topiramate Adverse Reaction (Verified 07/23/19 10:22) Unknown varenicline [From Chantix] Adverse Reaction (Verified 07/23/19 10:22) irritation zolpidem Adverse Reaction (Verified 07/23/19 10:22) sleepwalking Primary Care Physician: Abiel Marin DO [Primary Care Provider] - Surgical History: tonsillectomy Smoking Status: Current every day smoker Drugs: None - Family History Maternal Family History: Family History (Last Reviewed 03/24/18 @ 11:27 by Vanessa Blanco) Mother Diabetes Hypertension Heart disease Father Diabetes Hypertension Sister Myocardial infarction Family History: Reports: - - mother had heart attack 60 Paternal Family History: Family History (Last Reviewed 03/24/18 @ 11:27 by Vanessa Blanco) Mother Diabetes Hypertension Heart disease Father Diabetes Hypertension Sister Myocardial infarction Family History: Reports: - - father had heart disease in his late 30's Review of Systems General: Reports: Malaise, Sweats. Denies: Chills, Fever Eyes: Denies: Visual changes - bilaterally, Diplopia ENT: Denies: Rhinorrhea, Sore throat Cardiovascular: Reports: Chest pain - See HPI; nonpleuritic. Denies: Palpitations Respiratory: Reports: Dyspnea, Orthopnea. Denies: Cough, Dyspnea on exertion Gastrointestinal: Reports: Abdominal pain - See HPI. Denies: Nausea, Vomiting, Diarrhea, Melena, Hematochezia Genitourinary: Denies: Dysuria, Hematuria, Frequency Musculoskeletal: Reports: Back pain - Low back pain that comes and goes with chest/epigastrium discomfort. Denies: Neck pain, Swelling, Extremity Pain Skin: Denies: Rash, Wounds Neurological: Denies: Headache, Weakness, Numbness Psych: Reports: Anxiety. Denies: Suicidal thoughts Physical Exam Vital Signs/Narrative: Vital Signs Temp Pulse Resp BP Pulse Ox 07/23/19 10:16 97.6 F L 111 H 18 208/134 H 98 Inital Vital Signs reviewed: Yes General: Well nourished, Well developed, Obese, No Acute Distress - But looks uncomfortable Head: Normocephalic, Atraumatic Eyes: Perrl, EOMI ENT: Moist mucous membranes, No rhinorrhea Neck: Supple, Nontender, No JVD Cardiovascular: Regular rate, Regular rhythm, No murmurs, Tachycardia, - - Equal bilateral 2+/4 radial pulses. Brisk cap refill all toes, but not able to palpate posterior tibial or dorsalis pedis pulses Respiratory: No distress, CTA bilaterally, Chest nontender Abdomen: Soft, Nontender, Nondistended, Normal bowel sounds. Negative for: Pulsatile mass Back: Nontender, Normal Inspection. Negative for: CVA tenderness Extremities: Nontender, No edema. Negative for: Calf Tenderness Skin: Normal color, No rash, Diaphoresis, No Trauma Neurological: Alert, Oriented x3, Cranial nerves II-XII grossly intact, Normal Strength, Normal Sensation, Normal Gait Psychological: Normal Mood, - - Anxious, cooperative Diagnostic/Tx/Re-eval Impressions Abdomen/Pelvis CTA 07/23/19 10:31 IMPRESSION: Stable ectasia of the aortic root. Otherwise, normal caliber aorta. No evidence of thoracic aortic aneurysm or dissection. No evidence of pulmonary embolus. No pulmonary infiltrates or pleural effusions. No bowel obstruction or inflammation. Normal appendix. Electronically Signed: Alex Gottlieb, at 11:29 EDT Tel , Service support , Chest CTA 07/23/19 10:31 IMPRESSION: Stable ectasia of the aortic root. Otherwise, normal caliber aorta. No evidence of thoracic aortic aneurysm or dissection. No evidence of pulmonary embolus. No pulmonary infiltrates or pleural effusions. No bowel obstruction or inflammation. Normal appendix. Electronically Signed: Alex Gottlieb, at 11:29 EDT Tel , Service support , 07/23/19 10:31 CT ANGIO ABD&PEL W/O&W/DYE [CT] Stat CTA Chest W/WO Contrast [CT] Stat Laboratory Results 07/23/19 07/23/19 07/23/19 10:40 10:40 10:40 WBC 9.2 RBC 6.17 Hgb 17.1 H Hct 53.6 MCV 86.9 MCH 27.7 MCHC 31.9 L RDW Std Deviation 43.3 RDW Coeff of Funmilayo 13.6 Plt Count 310 MPV 9.7 Immature Gran % (Auto) 0.800 Neut % (Auto) 60.7 Lymph % (Auto) 28.3 Kendall % (Auto) 7.8 Eos % (Auto) 1.6 Baso % (Auto) 0.8 Absolute Neuts (auto) 5.6 Absolute Lymphs (auto) 2.60 Nucleated RBC % 0 PT 11.9 INR 0.9 APTT 32.5 Sodium 139 Potassium 4.1 Chloride 103 Carbon Dioxide 30.0 Anion Gap 6 BUN 19 H Creatinine 0.72 Estim Creat Clear Calc 158.75 Est GFR (MDRD) Af Amer 157 Est GFR (MDRD) Non-Af 130 BUN/Creatinine Ratio 26.3 H Glucose 114 H Calcium 9.8 Troponin I < 0.015 - Rhythm Strip Rhythm Strip: Sinus Rhythm Rate: 80 Ectopy: None - EKG Initial EKG Interpretation: Sinus Rhythm, No Acute Injury Pattern Prior: Unchanged Treatment: Aspirin, Morphine TY Risk: No Positive TY Elements Score: 0 - Medical Decision Making With talking more with patient, it sounds like he is describing an aortic aneurysm, he thought it was in his chest, but his symptoms make me concerned about an abdominal aortic process. During my exam, I obtained the portable ED ultrasound machine, and try to evaluate his aorta. However due to obesity and bowel gas I was unable to definitively find it. I found an abdominal vessel that was 1 cm in diameter, that is unlikely the aorta. He is very hypertensive, likely due to his history of essential hypertension and medication noncompliance, not hypotensive, he is keenly alert and conversive. I feel he is stable to go to CT, CT angiography of the entire aorta is ordered and I discussed with CT. His CT angiography is negative. He does have stable ectasia of the aortic root that is unchanged without signs of dissection, aneurysm, or pulmonary embolus. The rest of his scan was also negative for anything incidental, I scanned his entire aorta given the symptoms in his epigastrium and lower back. He was very anxious. We treated that as well. On reexamination he said he felt much better, but then his chest discomfort returned. His initial EKG was unremarkable with a slight leftward axis but nothing technically abnormal, I want to repeat this, and he sent the EKG tach away, even though I had treated his anxiety twice, he thinks his chest discomfort is due to that and pulled his IV out and wants to be discharged. We had a discussion about pros and cons here, and when I am able to tell him and what I am not. I also offered further treatments including a GI cocktail as maybe this is his related to his esophagus. He declines and wants to leave. We treated his blood pressure since it was very high and he has essential hypertension and no noncompliance, concerned this could be related to his symptoms, even if he does not have an aortic dissection. We got his blood pressure down to the 140s, and again he is feeling much better but still having recurrent chest pain. He is refusing more work-up. I advised him to take his medication as prescribed, he states he does have it at home so I did not prescribe him another antihypertensive but I did give him a prescription for something for anxiety, which certainly could be related as well. ED Disposition - Plan for ED Patient: Disposition: Against Medical Advice Diagnosis: Chest pain, unspecified, Anxiety, Noncompliance with medication regimen, Thoracic aortic ectasia, Accelerated hypertension Instructions: CHEST PAIN, Uncertain Cause, Anxiety Reaction, Controlling High Blood Pressure Prescriptions: Lorazepam [Ativan] 1 mg PO TID PRN #10 tab PRN Reason: Anxiety Prescription Printed Referrals: Abiel Marin, [Primary Care Provider] - As soon as possible
[2019-07-23] MEDS: LORazepam 2 MG/ML Syringe 0.5 MG IV (10:41)
[2019-07-23] MEDS: 0.9% Normal Saline 1,000 ML 1000 ML IV (10:42)
[2019-07-23 11:07] LABS: Absolute Neutrophil Count 5.6 X10^3/uL (2.0-7.7); Basophil# 0.07 X10^3/uL; Basophil% 0.8 % (0-1); Eosinophil# 0.15 X10^3/uL; Eosinophils% 1.6 % (0-5); Hematocrit 53.6 % (40-54); Hemoglobin 17.1 g/dL (13.0-16.5); Lymphocyte % 28.3 % (19-41); Mean Corp Hgb Conc 31.9 g/dL (32-36); Mean Corpuscular Hgb 27.7 pg (27.0-32.0); Mean Corpuscular Volume 86.9 fL (80-94); Mean Platelet Vol. 9.7 fl (6.2-12.0); Monocyte# 0.72 X10^3/uL; Monocyte% 7.8 % (0-10); NRBC Flagged by Analyzer 0 % (0-5); Neutrophil # 5.58 X10^3/uL (2.7-7.7); Neutrophil % 60.7 % (47-70); Platelet Count 310 K/mm3 (150-450); RBC Distribution Width CV 13.6 % (11.6-14.6); RBC Distribution Width SD 43.3 fl (35.1-43.9); Red Blood Count 6.17 M/mm3 (4.6-6.2); White Blood Count 9.2 K/mm3 (4.4-11.0)
[2019-07-23 11:15] VITALS: BP 184/125; PULSE 91; RESP 16; O2SAT 98
[2019-07-23 11:15] LABS: International Normalized Ratio 0.9; Prothrombin Time (Protime)PT. 11.9 SECONDS (11.7-14.9)
[2019-07-23 11:16] LABS: Partial Thromboplast Time 32.5 Seconds (24.1-36.2)
[2019-07-23 11:32] LABS: Anion Gap 6 (5-15); BUN 19 mg/dL (7-18); BUN/Creat Ratio 26.3 RATIO (10-20); Calcium,Total 9.8 mg/dL (8.5-10.1); Chloride 103 mmol/L (98-107); Creatinine, Serum 0.72 mg/dL (0.70-1.30); EST Glomerular Filtration Rate 130 mL/min (>60); Est Glom Filt Rate - Afr Amer 157 mL/min (>60); Estimated Creatinine Clearance 158.75 ml/min; Glucose 114 mg/dL (74-106); Potassium 4.1 mmol/L (3.5-5.1); Sodium Level 139 mmol/L (136-145)
[2019-07-23] MEDS: Morphine 4 MG/ML Syringe IV (11:33)
[2019-07-23] MEDS: LORazepam 2 MG/ML Syringe 1 MG IV (12:18)
[2019-07-23 12:25] VITALS: BP 188/135; PULSE 89; RESP 18; O2SAT 96
[2019-07-23] MEDS: hydrALAZINE 20 MG/ML Vial 10 MG IV (12:27)
--- NOTE | 2019-07-23 13:07 | ED.RN ---
pt calling out multiple times to speak with Asking for more pain medications and ativan. This RN provides emotional support each time and answers pt's questions. Pt becoming increasingly agitated. Pt has removed his monitor and taken his own IV. Dr Weeks orders repeat EKG for increased chest pain. Pt refuses EKG. Pt requesting to leave, Dr Weeks at bedside going over the risks of patient leaving AMA. Pt verbalizes understanding. Pt signs AMA form. Dr Weeks does agree to send patient home with prescriptions for blood pressure medications. Pt remains agitated and pacing around the room. Pt refusing repeat vitals after IV hydralazine and for discharge.
== END 2019-07-23 13:18 | disposition left against medical advice (07) ==
PROVIDERS: Emergency Provider Emergency Medicine; Family Provider Family Medicine; PCP Family Medicine
DX: R07.9 Chest pain, unspecified (principal); F41.9 Anxiety disorder, unspecified; I77.810 Thoracic aortic ectasia; I10 Essential (primary) hypertension; Z91.14 Patient's other noncompliance with medication regimen; I47.1 Supraventricular tachycardia; G43.909 Migraine, unspecified, not intractable, without status migrainosus; G47.33 Obstructive sleep apnea (adult) (pediatric); F31.81 Bipolar II disorder; E66.9 Obesity, unspecified; F17.200 Nicotine dependence, unspecified, uncomplicated; Z79.899 Other long term (current) drug therapy; Z88.5 Allergy status to narcotic agent; Z88.1 Allergy status to other antibiotic agents
CPT/HCPCS: 71275; 74174; 80048; 84484; 85025; 85610; 85730; 93005; 96361; 96374; 96375; 96376; 99285; J7030; Q9967; A4216

== ENCOUNTER 2019-09-13 15:33 | Emergency (ER) | payer MEDICAID, SELFPAY ==
[2019-09-13 15:34] VITALS: BP 149/100; PULSE 148; RESP 20; TEMP 35.2; O2SAT 96; BMI 45.5
--- NOTE | 2019-09-13 15:44 | EKG12_ITS ---
Test Reason : ILLNESS Blood Pressure : / mmHG Vent. Rate : 116 BPM Atrial Rate : 116 BPM P-R Int : 172 ms QRS Dur : 118 ms QT Int : 298 ms P-R-T Axes : 028 -40 023 degrees QTc Int : 414 ms Sinus tachycardia Left axis deviation Pulmonary disease pattern Inferior infarct , age undetermined Abnormal ECG Confirmed by TJ ALLEN, LATRICE ([id number]), film editor NOEMY FRANCISCO ([id number]) on 09/19/2019 11:50:31 AM Referred By: CR Confirmed By:FREDO SPENCER MD
--- NOTE | 2019-09-13 15:44 | CT_ITS ---
STUDY: CT ABDOMEN AND PELVIS WITHOUT CONTRAST REASON FOR EXAM: Male, 39 years old. Jaundice, abnormal stool color, thickness for 2 weeks RADIATION DOSAGE (If Supplied By Facility): CTDIvol = ( 36.1 ) mGy, DLP = ( 2109.95 ) mGycm TECHNIQUE: Transaxial images were obtained from the dome of the diaphragm to the symphysis pubis without oral contrast, and without intravenous contrast. Sagittal and coronal images were reconstructed. Individualized dose optimization techniques were used for this CT. COMPARISON: CTA 07/23/2019 FINDINGS: Left hemidiaphragm is mildly elevated. There is atelectasis in the lung bases. The visualized portions of the heart are within normal limits. No hepatic masses. The gallbladder is contracted but there is pericholecystic induration and minimal fluid extending towards the colleen hepatis. Enlarged lymph node in the portacaval region measuring 1.8 x 2.2 cm is increased in size since the prior study. No intrahepatic bile duct dilation seen. Normal spleen. Normal pancreas. Normal bilateral adrenal glands. There is a simple cyst of the right kidney. No hydronephrosis. Normal left kidney. Normal visualized stomach. Normal small intestine. Normal colon. The appendix is visualized and appears normal. Normal abdominal aorta. Normal inferior vena cava. Normal retroperitoneum. Normal urinary bladder. There are prostatic calcifications. Normal abdominal wall. Normal osseous structures. CT/Abdomen/Pelvis W IV Cont ONLY IMPRESSION: 1. Inflammation of the gallbladder fossa with gallbladder wall thickening, although the gallbladder is nondistended. Findings could represent cholecystitis or cholangitis. No intrahepatic bile duct dilation. 2. Portocaval reactive adenopathy, new. 3. Simple right renal cyst. Electronically Signed: Huang Yuen MD (Brooks) at 17:13 EST , Service support ,
--- NOTE | 2019-09-13 15:45 | ED.DCSUM_ITS ---
History of Present Illness Chief Complaint: General Illness Informant: Patient Onset: Days Context: Gradual Onset Timing: Continuous Current Severity: Moderate Maximum Severity: Severe Narrative: The patient is a 39-year-old male with medical history significant for hypertension and bipolar disorder who is only currently on antihypertensives presents to the emergency department with jaundice, generalized malaise, change in urine, and generalized weakness. Patient states that he is just felt ill for the past 2 weeks. He states that he really had no specific symptoms, but states he just did not feel himself. He felt that he may been dehydrated. He states his been increasing his water consumption, but has noticed his urine has been dark and almost looked like blood. He states over the past 2 days, he noticed that he was visibly jaundiced. He does not think he has had fevers, but does admit to chills and sweats. He has no history of prior abdominal surgery. He denies any history of prior liver disease. He states he has had a mild cough and been short of breath. Prior similar symptoms: No Recent Illness/Hospitalization: No Past Medical History - Allergies and Home Meds Allergies/Adverse Reactions: Allergies ketorolac [From Toradol] Allergy (Verified 09/13/19 15:34) Other cephalexin [From Keflex] Adverse Reaction (Verified 09/13/19 15:34) Vomiting divalproex sodium [From Depakote] Adverse Reaction (Verified 09/13/19 15:34) dizzy Opioids - Morphine Analogues Adverse Reaction (Verified 09/13/19 15:34) irritable topiramate Adverse Reaction (Verified 09/13/19 15:34) Unknown varenicline [From Chantix] Adverse Reaction (Verified 09/13/19 15:34) irritation zolpidem Adverse Reaction (Verified 09/13/19 15:34) sleepwalking Primary Care Physician: Abiel Marin DO [STAFF PHYSICIAN] - Prior records reviewed: Yes Past Medical History: - - Bipolar disorder, hypertension Surgical History: tonsillectomy Smoking Status: Current every day smoker - Family History Maternal Family History: Family History (Last Reviewed 03/24/18 @ 11:27 by Vanessa Blanco) Mother Diabetes Hypertension Heart disease Father Diabetes Hypertension Sister Myocardial infarction Family History: Reports: - - mother had heart attack 60 Paternal Family History: Family History (Last Reviewed 03/24/18 @ 11:27 by Vanessa Blanco) Mother Diabetes Hypertension Heart disease Father Diabetes Hypertension Sister Myocardial infarction Family History: Reports: - - father had heart disease in his late 30's Review of Systems General: Reports: Chills, Malaise Eyes: Denies: Visual changes - bilaterally, Diplopia ENT: Denies: Rhinorrhea, Sore throat Cardiovascular: Denies: Chest pain, Palpitations Respiratory: Denies: Dyspnea, Cough, Dyspnea on exertion Gastrointestinal: Reports: Nausea Genitourinary: Denies: Dysuria, Hematuria, Frequency Musculoskeletal: Reports: Arthralgias Skin: Denies: Rash, Wounds Neurological: Denies: Headache, Weakness, Numbness Endocrine: Reports: Polyuria Physical Exam Vital Signs/Narrative: Vital Signs Temp Pulse Resp BP Pulse Ox 09/13/19 15:34 95.3 F L 148 H 20 H 149/100 H 96 Inital Vital Signs reviewed: Yes General: Well nourished, Well developed, No Acute Distress Head: Normocephalic, Atraumatic Eyes: Perrl, EOMI ENT: Moist mucous membranes, No rhinorrhea, Dry mucous membranes Neck: Supple, Nontender Cardiovascular: Regular rhythm, No murmurs, Tachycardia Respiratory: No distress, CTA bilaterally, Chest nontender Abdomen: Soft, Nontender, Nondistended, Normal bowel sounds Back: Nontender, Normal Inspection Extremities: Nontender, No edema Skin: Normal color, No rash, Jaundice Neurological: Alert, Oriented x3, Cranial nerves II-XII grossly intact, Normal Strength, Normal Sensation Psychological: Normal affect, Normal Mood Diagnostic/Tx/Re-eval Clinical Impression(s) from Imaging Studies Abdomen/Pelvis CT 09/13/19 15:44 IMPRESSION: 1. Inflammation of the gallbladder fossa with gallbladder wall thickening, although the gallbladder is nondistended. Findings could represent cholecystitis or cholangitis. No intrahepatic bile duct dilation. 2. Portocaval reactive adenopathy, new. 3. Simple right renal cyst. Electronically Signed: Huang Yuen MD ([place]) at 17:13 EST , Service support , Abnormal Lab Results 12/17/19 12/17/19 12/17/19 15:53 15:53 15:53 WBC 7.5 RBC 6.20 Hgb 16.8 H Hct 50.7 MCV 81.8 MCH 27.1 MCHC 33.1 RDW Std Deviation 46.3 H RDW Coeff of Funmilayo 17.1 H Plt Count 219 MPV 10.7 Immature Gran % (Auto) 0.700 Neut % (Auto) 55.8 Lymph % (Auto) 28.6 [place] % (Auto) 12.1 H Eos % (Auto) 2.0 Baso % (Auto) 0.8 Absolute Neuts (auto) 4.2 Absolute Lymphs (auto) 2.15 Nucleated RBC % 0 Differential Comment SCANNED PT 14.2 INR 1.1 Sodium 136 Potassium 3.8 Chloride 106 Carbon Dioxide 23.0 Anion Gap 7 BUN 15 Creatinine 0.90 Estim Creat Clear Calc 127.00 Est GFR (MDRD) Af Amer 122 Est GFR (MDRD) Non-Af 101 BUN/Creatinine Ratio 16.7 Glucose 127 H Lactic Acid Calcium 8.2 L Total Bilirubin 7.40 H Direct Bilirubin 6.19 H AST 1983 H ALT 2600 H Alkaline Phosphatase 489 H Ammonia Total Protein 7.4 Albumin 3.0 L Globulin 4.4 H Lipase 222 09/13/19 09/13/19 15:53 15:53 WBC RBC Hgb Hct MCV MCH MCHC RDW Std Deviation RDW Coeff of Funmilayo Plt Count MPV Immature Gran % (Auto) Neut % (Auto) Lymph % (Auto) [place] % (Auto) Eos % (Auto) Baso % (Auto) Absolute Neuts (auto) Absolute Lymphs (auto) Nucleated RBC % Differential Comment PT INR Sodium Potassium Chloride Carbon Dioxide Anion Gap BUN Creatinine Estim Creat Clear Calc Est GFR (MDRD) Af Amer Est GFR (MDRD) Non-Af BUN/Creatinine Ratio Glucose Lactic Acid 0.6 Calcium Total Bilirubin Direct Bilirubin AST ALT Alkaline Phosphatase Ammonia 25.0 Total Protein Albumin Globulin Lipase - Medical Decision Making Patient presents to the emergency department nausea, generalized malaise, chills, and jaundice. He really does not describe any pain. He states he is been more weak. He is visibly jaundiced. The patient was initially tachycardic, but with fluids and analgesics was feel improved. Screening labs are obtained. The patient's liver functions are markedly elevated. His lactic acid is normal. His lipase is normal. The patient underwent CT imaging. This does demonstrate findings that are concerning for cholangitis. I do feel this patient is going to require higher level of care we do not have the ability to do ERCP at this time. Patient requested transfer to [place]. He was discussed with the transfer line at [facility]. He was covered with broad-spectrum antibiotics. He will be transferred at this time. Impression 1. Acute cholangitis ED Disposition - Plan for ED Patient: Referrals: Abiel Marin DO [STAFF PHYSICIAN] -
[2019-09-13] MEDS: 0.9% Normal Saline 1,000 ML 1000 ML IV (16:05)
[2019-09-13] MEDS: Ondansetron 4 MG/2 ML Vial IV (16:06)
[2019-09-13 16:11] LABS: Absolute Lymphocyte Count 2.15 X10^3/uL (0.83-4.51); Absolute Neutrophil Count 4.2 X10^3/uL (2.0-7.7); Basophil# 0.06 X10^3/uL; Basophil% 0.8 % (0-1); Eosinophil# 0.15 X10^3/uL; Hematocrit 50.7 % (40-54); Hemoglobin 16.8 g/dL (13.0-16.5); Lymphocyte # 2.15 X10^3/ul (4.0); Lymphocyte % 28.6 % (19-41); Mean Corp Hgb Conc 33.1 g/dL (32-36); Mean Corpuscular Hgb 27.1 pg (27.0-32.0); Mean Corpuscular Volume 81.8 fL (80-94); Mean Platelet Vol. 10.7 fl (6.2-12.0); Monocyte# 0.91 X10^3/uL; Monocyte% 12.1 % (0-10); NRBC Flagged by Analyzer 0 % (0-5); Neutrophil % 55.8 % (47-70); POSITIVE MORPHOLOGY YES; Platelet Count 219 K/mm3 (150-450); RBC Distribution Width CV 17.1 % (11.6-14.6); RBC Distribution Width SD 46.3 fl (35.1-43.9); White Blood Count 7.5 K/mm3 (4.4-11.0)
[2019-09-13 16:17] LABS: Differential Indicated SCAN CRITERIA MET
[2019-09-13 16:24] LABS: International Normalized Ratio 1.1; Prothrombin Time (Protime)PT. 14.2 SECONDS (11.7-14.9)
[2019-09-13 16:27] LABS: Lactic Acid 0.6 mmol/L (0.4-1.9)
[2019-09-13 16:33] VITALS: BP 145/109; PULSE 104; RESP 16; TEMP 36.9; O2SAT 97
[2019-09-13 16:40] LABS: AST(SGOT) 1983 U/L (15-37); Alanine Aminotransfer ALT/SGPT 2600 U/L (16-61); Alkaline Phosphatase 489 U/L (45-117); Anion Gap 7 (5-15); BUN 15 mg/dL (7-18); BUN/Creat Ratio 16.7 RATIO (10-20); Bilirubin, Direct 6.19 mg/dL (0.00-0.30); Calcium,Total 8.2 mg/dL (8.5-10.1); Chloride 106 mmol/L (98-107); EST Glomerular Filtration Rate 101 mL/min (>60); Est Glom Filt Rate - Afr Amer 122 mL/min (>60); Globulin 4.4 g/dL (2.2-4.2); Glucose 127 mg/dL (74-106); Lipase 222 U/L (73-393); Potassium 3.8 mmol/L (3.5-5.1); Protein, Total 7.4 g/dL (6.4-8.2); Sodium Level 136 mmol/L (136-145)
[2019-09-13 16:49] LABS: Differential Comment SCANNED
[2019-09-13 17:00] VITALS: BP 144/102; PULSE 106; RESP 16; TEMP 36.9; O2SAT 96
--- NOTE | 2019-09-13 17:29 | NURSING ---
CALLED [facility] FOR TRANSFER.
--- NOTE | 2019-09-13 17:44 | NURSING ---
[facility] [address] [facility] H6 BED [id number] NURSE TO NURSE [phone]
[2019-09-13] MEDS: DiphenhydrAMINE 50 MG/ML Syringe 25 MG IV (17:57)
[2019-09-13] MEDS: HYDROmorphone 0.5 MG/0.5 ML SYRINGE IV (17:58)
[2019-09-13 18:00] VITALS: BP 150/105; PULSE 110; RESP 18; O2SAT 97
--- NOTE | 2019-09-13 18:35 | ED.RN ---
REPORT CALLED TO SHAUNA STEPHEN AT [place] [id number] .
[2019-09-15 03:07] LABS: HEPATITIS B SURFACE AG Negative (Negative); Hepatitis B Core AB IgM Negative (Negative)
[2019-09-15 14:14] LABS: Hep C Antibodies <0.1 s/co ratio (0.0-0.9)
[2019-09-15 14:21] LABS: Hepatitis A IgM Antibody Positive (Negative)
== END 2019-09-13 18:30 | disposition short-term general hospital (02) ==
LOC: ED 16:11
PROVIDERS: Emergency Provider Emergency Medicine; Family Provider Family Medicine; PCP Family Medicine
DX: K83.09 Other cholangitis (principal); N28.1 Cyst of kidney, acquired; I10 Essential (primary) hypertension; F17.200 Nicotine dependence, unspecified, uncomplicated; Z88.5 Allergy status to narcotic agent; Z88.1 Allergy status to other antibiotic agents
CPT/HCPCS: 74177; 80048; 80074; 80076; 82140; 83605; 83690; 85025; 85610; 87040; 93005; 96361; 96365; 96375; 99284; J7030; J7050; Q9967; A4216; J2405

== ENCOUNTER 2019-09-19 19:32 | Emergency (ER) | payer MEDICAID, SELFPAY ==
[2019-09-19 19:32] VITALS: BP 144/105; PULSE 94; RESP 22; TEMP 37.1; O2SAT 100; BMI 46.7
--- NOTE | 2019-09-19 19:41 | CT_ITS ---
STUDY: CT ABDOMEN AND PELVIS WITH CONTRAST REASON FOR EXAM: Male, 39 years old. ABD PAIN RADIATION DOSAGE (If Supplied By Facility): CTDIvol = ( 17.07 ) mGy, DLP = ( 1361.15 ) mGycm TECHNIQUE: Transaxial images were obtained from the dome of the diaphragm to the symphysis pubis without oral contrast. IV 100mL Isovue-300 was administered. Sagittal and coronal images were reconstructed. Individualized dose optimization techniques were used for this CT. COMPARISON: 09/13/2019. FINDINGS: The visualized lung bases are unremarkable. The visualized portions of the heart are within normal limits. Normal liver. Overall improved appearance of the gallbladder since prior study. Normal spleen. Normal pancreas. Normal bilateral adrenal glands. Bilateral benign-appearing renal cysts. Normal visualized stomach. Normal small intestine. Normal colon. The appendix is visualized and appears normal. There is diffuse atherosclerotic calcification of the abdominal aorta, without a demonstrated aneurysm. Normal inferior vena cava. Persistent prominent portacaval lymph node, compared to prior study measuring up to 4.1 x 2.0 cm in cross-section. Normal urinary bladder. There are prostatic calcifications. Normal abdominal wall. There are diffuse degenerative changes of the visualized lumbar spine. CT/Abdomen/Pelvis W IV Cont ONLY IMPRESSION: Persistent prominent portacaval lymph node, compared to prior study measuring up to 4.1 x 2.0 cm in cross-section. Bilateral likely benign-appearing renal cysts. Overall improved appearance of the gallbladder since prior study. Appendix is normal. Electronically Signed: Moreno Magallanes MD at 20:42 EST Tel [phone], Service support ,
[2019-09-19] MEDS: 0.9% Normal Saline 1,000 ML 125 ML IV (20:04)
[2019-09-19] MEDS: HYDROmorphone 1 MG/ML Syringe IV ×2 (20:05→21:53)
[2019-09-19] MEDS: Ondansetron 4 MG/2 ML Vial IV (20:05)
[2019-09-19 20:17] LABS: Absolute Lymphocyte Count 2.07 X10^3/uL (0.83-4.51); Absolute Neutrophil Count 4.3 X10^3/uL (2.0-7.7); Basophil# 0.04 X10^3/uL; Basophil% 0.6 % (0-1); Eosinophil# 0.16 X10^3/uL; Eosinophils% 2.2 % (0-5); Hemoglobin 14.1 g/dL (13.0-16.5); Lymphocyte # 2.07 X10^3/ul (4.0); Lymphocyte % 28.9 % (19-41); Mean Corp Hgb Conc 33.6 g/dL (32-36); Mean Corpuscular Hgb 27.2 pg (27.0-32.0); Mean Corpuscular Volume 81.1 fL (80-94); Mean Platelet Vol. 10.6 fl (6.2-12.0); Monocyte# 0.59 X10^3/uL; Monocyte% 8.2 % (0-10); NRBC Flagged by Analyzer 0.3 % (0-5); Neutrophil # 4.28 X10^3/uL (2.7-7.7); Neutrophil % 59.7 % (47-70); Platelet Count 192 K/mm3 (150-450); RBC Distribution Width CV 18.8 % (11.6-14.6); RBC Distribution Width SD 52.1 fl (35.1-43.9); Red Blood Count 5.18 M/mm3 (4.6-6.2); White Blood Count 7.2 K/mm3 (4.4-11.0)
[2019-09-19 20:37] LABS: Mucous, Urine 0 SEEN /hpf (<or=2+); Red Blood Cells-Urine 0 SEEN /hpf (0-5); White Blood Cells 0 SEEN /hpf (0-5)
[2019-09-19 20:40] LABS: ALB/GLOB Ratio 0.6 RATIO (0.9-2.4); AST(SGOT) 268 U/L (15-37); Alanine Aminotransfer ALT/SGPT 661 U/L (16-61); Albumin, Serum 2.6 g/dL (3.2-5.0); Alkaline Phosphatase 240 U/L (45-117); Anion Gap 7 (5-15); BUN 16 mg/dL (7-18); BUN/Creat Ratio 20.5 RATIO (10-20); Calcium,Total 8.2 mg/dL (8.5-10.1); Chloride 106 mmol/L (98-107); Creatinine, Serum 0.78 mg/dL (0.70-1.30); EST Glomerular Filtration Rate 118 mL/min (>60); Est Glom Filt Rate - Afr Amer 143 mL/min (>60); Estimated Creatinine Clearance 146.54 ml/min; Globulin 4.1 g/dL (2.2-4.2); Glucose 103 mg/dL (74-106); Lipase 358 U/L (73-393); Potassium 3.6 mmol/L (3.5-5.1); Protein, Total 6.7 g/dL (6.4-8.2); Sodium Level 138 mmol/L (136-145)
[2019-09-19 20:41] LABS: Color, Urine Yellow (Yellow); Glucose, Dipstick Normal (Normal); Ketone-Dipstick Negative (Negative); Leukocyte Esterase-Dipstick 25 /ul (Negative); Nitrite-Dipstick Positive (Negative); Occult Blood-Urine 10 /ul (Negative); Protein-Dipstick 15 mg/dl (Negative); Specific Gravity, Urine 1.015 (1.002-1.030); Urine Clarity Sl. Cloudy (Clear); Urine Urobilinogen 8 mg/dl (Normal)
[2019-09-19 20:46] LABS: Lactic Acid 0.7 mmol/L (0.4-1.9)
[2019-09-19 20:52] LABS: Bacteria RARE /hpf (None Seen); Squamous Epithelial Cells - UA 0-5 SEEN /hpf (0-5); Urine Bilirubin Dipstick 6 mg/dL (Negative)
[2019-09-19 21:55] VITALS: BP 160/126; PULSE 72; RESP 16; TEMP 36.7; O2SAT 97
--- NOTE | 2019-09-19 22:00 | ED.VISSUMM ---
- ER Visit Summary Date of Service: 09/19/19 Chief Complaint: [Abdominal pain] History of Present Illness: The patient is a 39 M [patient is presenting with abdominal pain that is had for over a week. Patient states that he was first seen in the emergency department here about a week and a half ago when sent to [facility] for jaundice and concern for cholecystitis versus cholangitis. Patient was to undergo cholecystectomy and ERCP however he signed out AGAINST MEDICAL ADVICE at [facility] 6 days ago. Patient continues to present with abdominal pain persistent vomiting and continued jaundice. Denies any fever. Patient describes dark urine that he thinks might be blood.] Physical Examination: [HEENT-PERRLA, EOMI. Cranial nerves II through XII grossly intact. TMs clear. Mucous membranes moist. No adenopathy. Patient has scleral icterus and appears jaundiced. Cardiovascular-regular rate and rhythm without murmur or ectopy Lungs-clear to auscultation, chest wall stable without crepitus or subcu emphysema Abdomen-normoactive bowel sounds, soft. Patient has tenderness diffusely over the epigastric region left upper quadrant. There is no rebound, rigidity, or perineal signs. Extremities-intact ?4, normal range of motion, normal pulses, atraumatic] Test Results: [CBC with differential, 7.2, hemoglobin 14, hematocrit 42, plates 192. Chemistries unremarkable. LFTs showed a total bili of 10.3, alk phos 240, ALT 661, AST 268, lipase 358. CT scan of the M pelvis showed a persistent prominent portal caval lymph node measuring 4.1 x 2 cm otherwise improved findings of the gallbladder.] Emergency Department Course and Treatment: [Was medicated with Dilaudid and Zofran. Patient was started on saline. Patient case discussed with general surgery who did not feel there was an acutely surgical issue going on patient did test positive for hepatitis A during his last visit however given the increasing level of bilirubin there was still potential concern for obstruction of the biliary ducts and patient would possibly require an ERCP which is not able to be performed here at [place].] Treatment Plan: [] Patient is comfortable with going back to [facility]. Patient will be transferred Disposition: [Transfer to [facility].] Impression: [Hyperbilirubinemia Abdominal pain Hepatitis A] This note was generated with [employer] software. It may contain incorrect words, spelling, and punctuation that were not noted in review of the chart prior to signing ED Disposition - Plan for ED Patient: Referrals: Yazan Palacio MD [Primary Care Provider] -
--- NOTE | 2019-09-19 22:25 | ED.RN ---
called report to Mirna VILLATORO at [facility]
== END 2019-09-19 23:01 | disposition short-term general hospital (02) ==
LOC: ED 19:42
PROVIDERS: Emergency Provider Emergency Medicine; Family Provider Family Medicine; PCP Family Medicine
DX: R17 Unspecified jaundice (principal); R10.13 Epigastric pain; R10.12 Left upper quadrant pain; B15.9 Hepatitis A without hepatic coma; I10 Essential (primary) hypertension; Z72.0 Tobacco use; Z79.899 Other long term (current) drug therapy
CPT/HCPCS: 74177; 80053; 81001; 82248; 83605; 83690; 85025; 96361; 96374; 96375; 96376; 99284; J7030; Q9967; A4216; J2405

== ENCOUNTER 2019-09-29 21:34 | Emergency (ER) | payer MEDICAID, SELFPAY ==
[2019-09-29 21:35] VITALS: BP 167/98; PULSE 116; RESP 24; TEMP 36.4; O2SAT 100; BMI 45.8
--- NOTE | 2019-09-29 22:45 | ED.VIS.GEN ---
History of Present Illness Chief Complaint: Flank Pain Informant: Patient Narrative: Stated that he feels uncomfortable. He cannot specifically describe the sensations that he is having. He feels nauseous. He has difficulty being comfortable at rest. He was recently diagnosed with hepatitis A. Was told he may have cholangitis or cholecystitis however it appears that they did not take out his gallbladder. He was recently seen in our hospital and transferred to [facility] for evaluation for jaundice and liver failure as well as renal insufficiency from hepatitis A. He is to follow-up with his family doctor and has an appointment tomorrow. He missed his follow-up appointment last week. He stated he has some mild chronic right upper quadrant pain but that is not the cause of his visit today. That is chronic for him. No home treatment. Denies any fevers or chills. He was having diarrhea but this is resolved. He is not having vomiting. He does not know if he supposed to follow-up with an outpatient surgery to reevaluate his gallbladder. He stated that his jaundice is much better and almost resolved - Past Medical History (1) Obstructive sleep apnea Status: Chronic (2) Bipolar II disorder Status: Chronic (3) Nicotine dependence Status: Chronic (4) Morbid obesity Status: Chronic (5) Rapid palpitations Status: Chronic (6) HTN (hypertension) Status: Chronic (7) SVT (supraventricular tachycardia) Status: Chronic (8) Aortic root dilatation Status: Chronic Past Medical History - Allergies and Home Meds Allergies/Adverse Reactions: Allergies ketorolac [From Toradol] Allergy (Verified 09/13/19 15:34) Other cephalexin [From Keflex] Adverse Reaction (Verified 09/13/19 15:34) Vomiting divalproex sodium [From Depakote] Adverse Reaction (Verified 09/13/19 15:34) dizzy Opioids - Morphine Analogues Adverse Reaction (Verified 09/13/19 15:34) irritable topiramate Adverse Reaction (Verified 09/13/19 15:34) Unknown varenicline [From Chantix] Adverse Reaction (Verified 09/13/19 15:34) irritation zolpidem Adverse Reaction (Verified 09/13/19 15:34) sleepwalking Primary Care Physician: Abiel Marin DO [Primary Care Provider] - Prior records reviewed: Yes Past Medical History: - - See problem list Surgical History: tonsillectomy Lives: With Family Smoking Status: Current every day smoker Alcohol: None Drugs: None - Family History Maternal Family History: Family History (Last Reviewed 03/24/18 @ 11:27 by Vanessa Blanco) Mother Diabetes Hypertension Heart disease Father Diabetes Hypertension Sister Myocardial infarction Family History: Reports: - - mother had heart attack 60 Paternal Family History: Family History (Last Reviewed 03/24/18 @ 11:27 by Vanessa Blanco) Mother Diabetes Hypertension Heart disease Father Diabetes Hypertension Sister Myocardial infarction Family History: Reports: - - father had heart disease in his late 30's Review of Systems General: Denies: Chills, Fever, Sweats Eyes: Denies: Visual changes - bilaterally, Diplopia ENT: Denies: Rhinorrhea, Sore throat Cardiovascular: Denies: Chest pain, Palpitations Respiratory: Denies: Dyspnea, Cough, Dyspnea on exertion Gastrointestinal: Reports: Nausea. Denies: Abdominal pain, Vomiting, Diarrhea, Melena, Hematochezia Genitourinary: Denies: Dysuria, Hematuria, Frequency Musculoskeletal: Denies: Back pain, Extremity Pain Skin: Denies: Rash, Wounds Neurological: Denies: Headache, Weakness, Numbness Physical Exam Vital Signs/Narrative: Vital Signs Temp Pulse Resp BP Pulse Ox 09/29/19 21:35 97.6 F L 116 H 24 H 167/98 H 100 General: Well nourished, Well developed, No Acute Distress Head: Normocephalic, Atraumatic Eyes: Perrl, EOMI ENT: Moist mucous membranes, No rhinorrhea Neck: Supple, Nontender Cardiovascular: Regular rate, Regular rhythm, No murmurs Respiratory: No distress, CTA bilaterally, Chest nontender Abdomen: Soft, Nontender, Nondistended, Normal bowel sounds. Negative for: Guarding, Rebound tenderness Back: Nontender, Normal Inspection Extremities: Nontender, No edema Skin: Normal color, No rash Neurological: Alert, Oriented x3, Cranial nerves II-XII grossly intact, Normal Strength, Normal Sensation Psychological: Normal affect, Normal Mood Diagnostic/Tx/Re-eval - Medical Decision Making Patient given IV fluids and Zofran. Lab work obtained. Lab work shows elevation in his liver function test and lipase but these are all slowly returning to normal. He had significant elevations recently from his hepatitis. On reevaluation patient given 1 dose of [place]. I do not feel he needs emergent imaging. He is nontoxic. He has appointment with his family doctor tomorrow. His labs are trending in the right direction. Will be discharged ED Disposition - Plan for ED Patient: Disposition: Home or Assisted Living Diagnosis: Nausea, Fatigue Instructions: VOMITING (8y-Adult) Prescriptions: Dicyclomine HCl [Bentyl] 20 mg PO TIDAC #20 cap Prescription Printed Ondansetron [Zofran Odt] 4 mg PO Q8H PRN PRN #10 tab PRN Reason: Nausea Prescription Printed Referrals: Abiel Marin DO [Primary Care Provider] -
[2019-09-29] MEDS: 0.9% Normal Saline 1,000 ML 1000 ML IV (23:00)
[2019-09-29] MEDS: Ondansetron 4 MG/2 ML Vial IV (23:00)
[2019-09-29 23:02] LABS: Absolute Lymphocyte Count 2.98 X10^3/uL (0.83-4.51); Absolute Neutrophil Count 4.9 X10^3/uL (2.0-7.7); Basophil# 0.06 X10^3/uL; Basophil% 0.7 % (0-1); Hematocrit 44.6 % (40-54); Hemoglobin 14.3 g/dL (13.0-16.5); Lymphocyte # 2.98 X10^3/ul (4.0); Lymphocyte % 34.5 % (19-41); Mean Corp Hgb Conc 32.1 g/dL (32-36); Mean Corpuscular Hgb 27.2 pg (27.0-32.0); Mean Platelet Vol. 11.2 fl (6.2-12.0); Monocyte# 0.68 X10^3/uL; Monocyte% 7.9 % (0-10); NRBC Flagged by Analyzer 0 % (0-5); Neutrophil # 4.87 X10^3/uL (2.7-7.7); Neutrophil % 56.4 % (47-70); Platelet Count 236 K/mm3 (150-450); RBC Distribution Width CV 19.4 % (11.6-14.6); RBC Distribution Width SD 58.2 fl (35.1-43.9); Red Blood Count 5.25 M/mm3 (4.6-6.2); White Blood Count 8.6 K/mm3 (4.4-11.0)
[2019-09-29 23:14] LABS: ALB/GLOB Ratio 0.6 RATIO (0.9-2.4); AST(SGOT) 96 U/L (15-37); Alanine Aminotransfer ALT/SGPT 227 U/L (16-61); Alkaline Phosphatase 154 U/L (45-117); Anion Gap 7 (5-15); BUN 22 mg/dL (7-18); BUN/Creat Ratio 24.1 RATIO (10-20); Calcium,Total 8.6 mg/dL (8.5-10.1); Chloride 108 mmol/L (98-107); Creatinine, Serum 0.91 mg/dL (0.70-1.30); EST Glomerular Filtration Rate 99 mL/min (>60); Est Glom Filt Rate - Afr Amer 120 mL/min (>60); Estimated Creatinine Clearance 125.61 ml/min; Globulin 4.9 g/dL (2.2-4.2); Glucose 161 mg/dL (74-106); Lipase 406 U/L (73-393); Potassium 4.3 mmol/L (3.5-5.1); Protein, Total 7.9 g/dL (6.4-8.2); Sodium Level 138 mmol/L (136-145)
[2019-09-29 23:56] VITALS: BP 130/68; PULSE 72; RESP 16; O2SAT 98
[2019-09-29] MEDS: HYDROcodone Bitartrate/Apap 5/325 Tablet PO (23:56)
== END 2019-09-29 23:57 | disposition home or self-care (01) ==
PROVIDERS: Emergency Provider Emergency Medicine; Family Provider Family Medicine; PCP Family Medicine
DX: R11.0 Nausea (principal); R53.83 Other fatigue; R10.11 Right upper quadrant pain; G89.29 Other chronic pain; I10 Essential (primary) hypertension; R00.2 Palpitations; G47.33 Obstructive sleep apnea (adult) (pediatric); E66.01 Morbid (severe) obesity due to excess calories; Z88.5 Allergy status to narcotic agent; Z88.1 Allergy status to other antibiotic agents; F17.200 Nicotine dependence, unspecified, uncomplicated; Z79.899 Other long term (current) drug therapy
CPT/HCPCS: 80053; 83690; 85025; 96361; 96374; 99284; A4216; J2405

== ENCOUNTER → 2019-09-30 15:04 | Outpatient (CLI) | payer MEDICAID, SELFPAY ==
[2019-09-29 21:35] VITALS: BMI 45.8
--- NOTE | 2019-09-30 15:07 | RAD_ITS ---
STUDY: X-RAY - LEFT SHOULDER REASON FOR EXAM: Male, 39 years old. left shoulder pain TECHNIQUE: 4 view(s) of the shoulder. COMPARISON: None. FINDINGS: Normal glenohumeral articulation. There is degenerative arthrosis of the acromioclavicular joint without inferior osseous spur formation. Normal acromion. Normal humeral head and visualized proximal humerus. The soft tissue structures are unremarkable. Normal visualized pulmonary apex. RAD/Shoulder min 2 Views IMPRESSION: Acromioclavicular joint arthrosis. Electronically Signed: Huang Yuen MD (Brooks) at 17:04 EST , Service support ,
== END ==
PROVIDERS: Family Provider Family Medicine; PCP Family Medicine; Referring Provider Family Medicine; Visit Provider Family Medicine
DX: M25.512 Pain in left shoulder (principal)
CPT/HCPCS: 73030

== ENCOUNTER 2020-07-05 21:30 | Emergency (ER) | payer MEDICAID, SELFPAY ==
[2020-07-05 21:31] VITALS: BP 182/131; PULSE 118; RESP 25; TEMP 36.4; O2SAT 96; BMI 53.1
[2020-07-05 21:38] VITALS: BP 182/131; PULSE 118; RESP 25; TEMP 36.4; O2SAT 96
[2020-07-05 21:39] VITALS: O2SAT 96
--- NOTE | 2020-07-05 21:49 | ED.VIS.GEN ---
History of Present Illness Chief Complaint: Shortness of Breath Informant: Patient Narrative: Patient is a 40-year-old male with a past medical history of COPD/asthma who presents to the emergency department for shortness of breath. He has had these symptoms over the past month with progressively getting worse. Denies been acutely worse. Uses home inhalers but does not give him any relief. He does not wear oxygen at baseline. He is supposed to see a non destructive testing engineer in the next coming weeks. He is a current everyday smoker. He is supposed to wear CPAP at nighttime but he wakes up in the middle of night and it is off. He has started develop some chest pain as he has had a cough. He coughs so significantly that he starts to dry heave. He does not bring anything up with this. No fevers or chills. Otherwise no nausea. No diarrhea. No abdominal pain. He denies any leg swelling or calf pain. No history of heart attacks, DVT/PE. He denies any leg swelling or calf pain. Past Medical History - Allergies and Home Meds Allergies/Adverse Reactions: Allergies ketorolac [From Toradol] Allergy (Verified 07/05/20 21:39) Other cephalexin [From Keflex] Adverse Reaction (Verified 07/05/20 21:39) Vomiting divalproex sodium [From Depakote] Adverse Reaction (Verified 07/05/20 21:39) dizzy Opioids - Morphine Analogues Adverse Reaction (Verified 07/05/20 21:39) irritable topiramate Adverse Reaction (Verified 07/05/20 21:39) Unknown varenicline [From Chantix] Adverse Reaction (Verified 07/05/20 21:39) irritation zolpidem Adverse Reaction (Verified 07/05/20 21:39) sleepwalking Primary Care Physician: Abiel Marin DO [Primary Care Provider] - 2 Days Prior records reviewed: Yes Surgical History: tonsillectomy Smoking Status: Current every day smoker - Family History Maternal Family History: Family History (Last Reviewed 03/24/18 @ 11:27 by Vanessa Blanco) Mother Diabetes Hypertension Heart disease Father Diabetes Hypertension Sister Myocardial infarction Family History: Reports: - - mother had heart attack 60 Paternal Family History: Family History (Last Reviewed 03/24/18 @ 11:27 by Vanessa Blanco) Mother Diabetes Hypertension Heart disease Father Diabetes Hypertension Sister Myocardial infarction Family History: Reports: - - father had heart disease in his late 30's Review of Systems All systems negative except as indicated General: Denies: Chills, Fever, Sweats Eyes: Denies: Visual changes - bilaterally, Diplopia ENT: Denies: Rhinorrhea, Sore throat Cardiovascular: Reports: Chest pain - Chest wall. Denies: Palpitations Respiratory: Reports: Dyspnea, Cough. Denies: Sputum Gastrointestinal: Denies: Abdominal pain, Nausea, Vomiting, Diarrhea Genitourinary: Denies: Dysuria, Hematuria, Frequency Musculoskeletal: Denies: Back pain, Swelling, Extremity Pain Skin: Denies: Rash, Wounds Neurological: Denies: Headache, Weakness, Numbness Physical Exam Vital Signs/Narrative: Vital Signs Temp Pulse Resp BP Pulse Ox 07/05/20 21:38 97.5 F L 118 H 25 H 182/131 H 96 07/05/20 21:31 97.5 F L 118 H 25 H 182/131 H 96 Inital Vital Signs reviewed: Yes General: Well nourished, Obese, Acute Distress - Mild distress, diaphoretic Head: Normocephalic, Atraumatic Eyes: Perrl, EOMI ENT: Moist mucous membranes, No rhinorrhea Neck: Supple, Nontender Cardiovascular: Regular rate, Regular rhythm, No murmurs Respiratory: No distress, Wheezing, Decreased Air Movement, - - Patient able to talk in full sentences. Does have tachypnea. Abdomen: Soft, Nontender, Nondistended, Normal bowel sounds Back: Nontender, Normal Inspection Extremities: Nontender, No edema. Negative for: Edema, Calf Tenderness Skin: Normal color, No rash Neurological: Alert, Oriented x3, Cranial nerves II-XII grossly intact, Normal Strength, Normal Sensation Psychological: Normal affect, Normal Mood Diagnostic/Tx/Re-eval - EKG Initial EKG Interpretation: - - Rate 106 bpm in sinus tachycardia. Normal intervals. Normal axis. No significant ST elevations or depressions appreciated. No T wave abnormalities. - Medical Decision Making Patient presents to the emergency department for shortness of breath. Upon arrival to the emergency department he is tachypneic, tachycardic and hypertensive. Having increased work of breathing. Talking full sentences. On physical exam he is wheezing and has decreased breath sounds bilaterally. He is given a DuoNeb breathing treatment along with Solu-Medrol. Will check chest x-ray and basic lab work. Besides a mildly elevated BNP and creatinine lab work did not reveal any significant acute abnormality. Chest x-ray did not show any evidence of focal infiltrate. His troponin is negative. After breathing treatments he is feeling much better. He was able to ambulate around the emergency department on room air and did not desaturate past 96%. Treat him as a COPD exacerbation and write a prescription for prednisone and azithromycin. He has an appointment the non destructive testing engineer next Thursday. I told to contact them regarding the steroid use as they might want to perform breathing test and not want him to be on any medications. He understands. Warning signs and symptoms for which to return to the ED are reviewed with him. He will be discharged home in stable condition. ED Disposition - Plan for ED Patient: Disposition: Home or Assisted Living Diagnosis: COPD exacerbation, Dyspnea Instructions: ED COPD Flare Prescriptions: predniSONE tablet 40 mg PO DAILY 4 Days #8 tab Transmission Status: Received by [id number] Azithromycin [Zithromax Z-Maximilian] 250 mg PO UD #1 box Transmission Status: Received by [id number] Referrals: Abiel Marin DO [Primary Care Provider] - 2 Days
[2020-07-05 22:05] VITALS: PULSE 120; RESP 24
[2020-07-05] MEDS: Ipratropium/Albuterol Sulfate 3 ML AMPUL.NEB INHALATION ×2 (22:05→23:30)
--- NOTE | 2020-07-05 22:18 | RAD_ITS ---
STUDY: X-RAY CHEST REASON FOR EXAM: Male, 40 years old. Shortness of breath for a month. Diaphoresis. Negative COVID 19 test 2 weeks ago. TECHNIQUE: Single AP portable view of the chest. COMPARISON: 07/22/2019 FINDINGS: The lungs are hypoexpanded. No new mass or infiltrate.. There is no demonstrated pleural abnormality. Normal size heart. Normal mediastinum and devi. Normal visualized pulmonary arteries. Normal visualized aortic arch and descending thoracic aorta. The thoracic spine is obscured by the mediastinum. Material There is no demonstrated abnormality of the visualized soft tissue structures of the upper abdomen. RAD/Chest 1 View (Portable) IMPRESSION: Degenerative changes, as described above. No demonstrated acute cardiopulmonary process. No major interval change. Electronically Signed: Pravin Gruber DO at 22:34 EDT Tel [phone], Service support ,
[2020-07-05] MEDS: MethylPREDNISolone 125 MG/2 ML Vial IV (22:33)
[2020-07-05 22:47] LABS: Absolute Lymphocyte Count 2.28 X10^3/uL (0.83-4.51); Absolute Neutrophil Count 6.3 X10^3/uL (2.0-7.7); Basophil# 0.07 X10^3/uL; Basophil% 0.7 % (0-1); Eosinophil# 0.19 X10^3/uL; Hematocrit 48.5 % (40-54); Hemoglobin 15.3 g/dL (13.0-16.5); Lymphocyte # 2.28 X10^3/ul (4.0); Lymphocyte % 23.4 % (19-41); Mean Corp Hgb Conc 31.5 g/dL (32-36); Mean Corpuscular Volume 85.5 fL (80-94); Mean Platelet Vol. 10.1 fl (6.2-12.0); Monocyte# 0.89 X10^3/uL; Monocyte% 9.1 % (0-10); NRBC Flagged by Analyzer 0 % (0-5); Neutrophil # 6.27 X10^3/uL (2.7-7.7); Neutrophil % 64.5 % (47-70); Platelet Count 249 K/mm3 (150-450); RBC Distribution Width CV 13.9 % (11.6-14.6); RBC Distribution Width SD 43.3 fl (35.1-43.9); Red Blood Count 5.67 M/mm3 (4.6-6.2); White Blood Count 9.7 K/mm3 (4.4-11.0)
[2020-07-05 23:07] LABS: Anion Gap 6 (5-15); BUN 12 mg/dL (7-18); BUN/Creat Ratio 9.2 RATIO (10-20); Calcium,Total 8.8 mg/dL (8.5-10.1); Chloride 105 mmol/L (98-107); Creatinine, Serum 1.31 mg/dL (0.70-1.30); EST Glomerular Filtration Rate 65 mL/min (>60); Est Glom Filt Rate - Afr Amer 79 mL/min (>60); Estimated Creatinine Clearance 86.41 ml/min; Glucose 149 mg/dL (74-106); Magnesium 1.9 mg/dL (1.6-2.6); Potassium 3.4 mmol/L (3.5-5.1); Sodium Level 141 mmol/L (136-145)
[2020-07-05 23:12] LABS: BNP,B-Type NATRIURETIC PEPTIDE 165.6 pg/mL (0-100)
[2020-07-05 23:30] VITALS: PULSE 118; RESP 22
[2020-07-05 23:49] VITALS: BP 169/110; PULSE 114; RESP 20; TEMP 36.6; O2SAT 95
[2020-07-06 00:10] VITALS: BP 169/110; PULSE 110; RESP 14; TEMP 36.6; O2SAT 97
[2020-07-06 00:17] VITALS: O2SAT 96
[2020-07-06 00:31] VITALS: BP 169/110; PULSE 102; RESP 24; O2SAT 98
--- NOTE | 2020-07-06 00:33 | ED.RN ---
PT GIVEN WRITTEN AND VERBAL DISCHARGE INSTRUCTIONS AND HOME GOING PAPERWORK. EDUCATED ON D/C PRESCRIPTIONS. PT VERBALIZES UNDERSTANDING, REPORTS HE IS TO FOLLOW UP WITH PCP. PT IV D/C AND COVERED WITH 2X2 GAUZE AND PAPER TAPE. PT DRESSES SELF AND CALLS FOR A RIDE HOME. AMBULATES OUT OF DEPT ALONE.
== END 2020-07-06 00:34 | disposition home or self-care (01) ==
PROVIDERS: Emergency Provider Emergency Medicine; PCP Family Medicine
DX: J44.1 Chronic obstructive pulmonary disease with (acute) exacerbation (principal); I10 Essential (primary) hypertension; R06.82 Tachypnea, not elsewhere classified; R00.0 Tachycardia, unspecified; F17.200 Nicotine dependence, unspecified, uncomplicated; E66.9 Obesity, unspecified; Z79.899 Other long term (current) drug therapy
CPT/HCPCS: 71045; 80048; 83735; 83880; 84484; 85025; 93005; 94640; 96374; 99285; A4216

== ENCOUNTER 2020-08-26 16:27 | Emergency (ER) | payer MEDICAID, SELFPAY ==
[2020-08-26] VITALS (7 sets, daily range): BP systolic 145–187; BP diastolic 101–131; PULSE 103–112; RESP 22–28; TEMP 36.2–37; O2SAT 96–100; BMI 53.5
--- NOTE | 2020-08-26 16:41 | EKG12_ITS ---
Test Reason : SOB Blood Pressure : / mmHG Vent. Rate : 100 BPM Atrial Rate : 100 BPM P-R Int : 174 ms QRS Dur : 122 ms QT Int : 398 ms P-R-T Axes : 048 -34 049 degrees QTc Int : 513 ms Normal sinus rhythm Possible Left atrial enlargement Left axis deviation Non-specific intra-ventricular conduction delay Abnormal ECG Confirmed by DAYANARA ALLEN, TIMOTEO ([id number]), news videotape editor NOEMY FRANCISCO ([id number]) on 08/28/2020 9:19:19 AM Referred By: ELLYN Confirmed By:TIMOTEO NICHOLE MD
--- NOTE | 2020-08-26 16:49 | ED.DCSUM_ITS ---
- ER Visit Summary Date of Service: 08/26/20 Chief Complaint: Shortness of breath History of Present Illness: The patient is a [address] Marin. He reports he is had shortness of breath for months. Is gradually gotten worse. States that it is mild currently and severe with walking. He has been wheezing. Reports that he has not gotten any relief with his inhaler. However, his nebulizer works great. He was on a Z-Maximilian approximate 1/2 months ago. Reports he has not been on prednisone in quite some time. Patient reports that he has occasional chest pain. Last episode was at 830 this morning while he was at rest. It was an aching pain that lasted approximately 1 minute. It was 2 out of 10 at worst and is pain-free currently. There was no associated nausea, vomiting, or diaphoresis. He reports that his shortness of breath was not worse during this time, but that he is short of breath. Nothing seemed to make this better. Patient reports he has had a cough for a while. It is nonproductive. He smokes 1 to 2 packs/day. He denies any fever or chills. He denies sick cont acts. He does wear a mask. Review of systems is otherwise negative. Physical Examination: Vitals: Stable. Afebrile. General: Well-nourished and well-developed. Head: Normocephalic atraumatic. Neck: Supple, no lymphadenopathy. No JVD. Nontender. Cardiovascular: Regular rate and rhythm. No murmurs. Respiratory: No respiratory distress. Mild wheezing bilaterally with decreased air movement. Abdominal: Soft, nontender, nondistended, normal bowel sounds. No guarding, rebound, or peritoneal signs. Back: Nontender. Extremities: Nontender, no edema. Skin: Legs are mottled, but patient reports that this is normal for him, no rash. Neurologic: Alert and oriented ?3. Cranial nerves II through XII are intact. Normal strength and sensation. Psych: Normal affect. Test Results: EKG is sinus tachycardia to [address] changes. Is unchanged from last month. CBC is normal. Chem-7 shows BUN of 4 and glucose 122. Troponin is 0.051. Be [facility] KAY MACHINE OPERATOR is 419.8. D-dimer is negative. Venous blood gas shows a pH of 7.41 with PO2 of 133 and bicarb of 27. Clinical Impression(s) from Imaging Studies Chest X-Ray 08/26/20 16:49 IMPRESSION: Cardiomegaly. Electronically Signed: Noah Jones DO at 18:31 EST Tel [phone], Service support , Emergency Department Course and Treatment: Patient was given albuterol and Atrovent aerosol. He was given Solu-Medrol IV. He is resting more comfortably. Patient refused Covid testing is I do not want anything up my nose. I discussed the results with the patient and told him that I think he needs to stay in the hospital for a cardiac evaluation and he is refusing. Patient is alert and oriented x3. He does understand the repercussions of this. He has chosen to leave AGAINST MEDICAL ADVICE. Treatment Plan: Patient has wheezing and a cough. He will be treated as a COPD exacerbation and placed on prednisone and doxycycline. He has a nebulizer at home. Instructed to follow-up his primary care physician as he was possible. Return to the emergency department for any worsening symptoms. Disposition: To home in improved and stable condition. Impression: 1. COPD. 2. Elevated troponin/BTNP. 3. Left AMA. This note was generated with [employer] dictation software. It may contain incorrect words, spelling, and punctuation that were not noted in review of the chart prior to signing ED Disposition - Plan for ED Patient: Disposition: Against Medical Advice Instructions: ED COPD Flare Prescriptions: Prednisone [Deltasone] 40 mg PO DAILY #10 tab Prescription Printed Doxycycline 100 mg PO BID #20 cap Prescription Printed Referrals: Abiel Marin DO [Primary Care Provider] - As soon as possible
--- NOTE | 2020-08-26 16:49 | RAD_ITS ---
STUDY: X-RAY CHEST REASON FOR EXAM: Male, 40 years old. SOB X SEVERAL MONTHS TECHNIQUE: Frontal view COMPARISON: 07/05/2020 FINDINGS: The lungs are clear and expanded. There is no demonstrated pleural abnormality. Cardiomegaly. Normal mediastinum and devi. Normal visualized pulmonary arteries. Normal visualized aortic arch and descending thoracic aorta. Normal visualized thoracic spine. Normal visualized ribs, clavicles, and shoulders. There is no demonstrated abnormality of the visualized soft tissue structures of the upper abdomen. RAD/Chest 1 View (Portable) IMPRESSION: Cardiomegaly. Electronically Signed: Noah Jones DO at 18:31 EST Tel [phone], Service support ,
[2020-08-26] MEDS: MethylPREDNISolone 125 MG/2 ML Vial IV (17:11)
[2020-08-26] MEDS: Ipratropium/Albuterol Sulfate 3 ML AMPUL.NEB INHALATION (17:11)
[2020-08-26 17:20] LABS: Absolute Lymphocyte Count 2.36 X10^3/uL (0.83-4.51); Absolute Neutrophil Count 7.5 X10^3/uL (2.0-7.7); Basophil# 0.05 X10^3/uL; Basophil% 0.5 % (0-1); Hematocrit 47.3 % (40-54); Hemoglobin 14.8 g/dL (13.0-16.5); Lymphocyte # 2.36 X10^3/ul (4.0); Lymphocyte % 21.9 % (19-41); Mean Corp Hgb Conc 31.3 g/dL (32-36); Mean Corpuscular Hgb 27.1 pg (27.0-32.0); Mean Corpuscular Volume 86.6 fL (80-94); Mean Platelet Vol. 10.2 fl (6.2-12.0); Monocyte# 0.87 X10^3/uL; Monocyte% 8.1 % (0-10); NRBC Flagged by Analyzer 0 % (0-5); Neutrophil # 7.49 X10^3/uL (2.7-7.7); Neutrophil % 69.2 % (47-70); Platelet Count 246 K/mm3 (150-450); RBC Distribution Width CV 14.6 % (11.6-14.6); RBC Distribution Width SD 46.2 fl (35.1-43.9); Red Blood Count 5.46 M/mm3 (4.6-6.2); White Blood Count 10.8 K/mm3 (4.4-11.0)
[2020-08-26 17:25] LABS: Blood Gas Specimen Type VEN; VBG BASE EXCESS 3 mmol/L (-1.0-3.5); VBG Bicarbonate 27 mmol/L (22-26); VBG PO2 133 mmHg (25-40); VBG SO2 99 % (50-70); VBG TCO2 29 mmol/L (23-33); VBG pH 7.41 (7.32-7.42)
[2020-08-26 17:30] LABS: D-Dimer Quantitative (DVT/PE) 0.41 FEU/ug/m (0.27-0.49)
[2020-08-26 17:33] LABS: BNP,B-Type NATRIURETIC PEPTIDE 419.8 pg/mL (0-100)
[2020-08-26 17:37] LABS: Anion Gap 4 (5-15); BUN 10 mg/dL (7-18); BUN/Creat Ratio 12.2 RATIO (10-20); Calcium,Total 8.5 mg/dL (8.5-10.1); Chloride 106 mmol/L (98-107); Creatinine, Serum 0.82 mg/dL (0.70-1.30); EST Glomerular Filtration Rate 112 mL/min (>60); Est Glom Filt Rate - Afr Amer 135 mL/min (>60); Estimated Creatinine Clearance 138.04 ml/min; Glucose 122 mg/dL (74-106); Potassium 3.7 mmol/L (3.5-5.1); Sodium Level 139 mmol/L (136-145)
== END 2020-08-26 18:48 | disposition left against medical advice (07) ==
LOC: ED 16:55
PROVIDERS: Emergency Provider Emergency Medicine; PCP Family Medicine
DX: J44.9 Chronic obstructive pulmonary disease, unspecified (principal); R79.89 Other specified abnormal findings of blood chemistry; F17.200 Nicotine dependence, unspecified, uncomplicated; Z53.29 Procedure and treatment not carried out because of patient's decision for other reasons
CPT/HCPCS: 71045; 80048; 82803; 83880; 84484; 85025; 85379; 93005; 94640; 96374; 99285; A4216

== ENCOUNTER 2020-10-25 14:05 | Emergency (ER) | payer MEDICAID, SELFPAY ==
[2020-08-26 16:29] VITALS: BMI 53.5
[2020-10-25] VITALS (7 sets, daily range): BP systolic 114–149; BP diastolic 80–130; PULSE 101–110; RESP 20–28; TEMP 36.3–36.6; O2SAT 94–100; BMI 53.5
--- NOTE | 2020-10-25 14:45 | EKG12_ITS ---
Test Reason : Blood Pressure : / mmHG Vent. Rate : 098 BPM Atrial Rate : 098 BPM P-R Int : 206 ms QRS Dur : 128 ms QT Int : 384 ms P-R-T Axes : 008 -43 042 degrees QTc Int : 490 ms Sinus rhythm with Premature atrial complexes Left axis deviation Non-specific intra-ventricular conduction block Abnormal ECG Confirmed by TJ ALLEN, LATRICE ([id number]), newspaper or periodical editor NOEMY FRANCISCO ([id number]) on 10/29/2020 10:50:28 AM Referred By: MAIRA Confirmed By:FREDO SPENCER MD
--- NOTE | 2020-10-25 14:46 | ED.VIS.GEN ---
History of Present Illness Chief Complaint: Shortness of Breath Informant: Patient Narrative: 40-year-old male presenting with shortness of breath. He states this has been going on for last couple of days. He describes it as intermittent and feels like he might be having panic attacks however he is currently about to be evaluated pulmonary function test to see if he has emphysema due to his history of smoking. He denies fever, cough, myalgias, exposure to sick contacts. He states he stays home all the time. EMS reports that he does use methamphetamine and might have got a bad batch of it 4 days ago which might be causing his symptoms. She denies chest pain. - Past Medical History (1) Bipolar II disorder Status: Chronic (2) HTN (hypertension) Status: Chronic (3) Obstructive sleep apnea Status: Chronic (4) SVT (supraventricular tachycardia) Status: Chronic Past Medical History - Allergies and Home Meds Allergies/Adverse Reactions: Allergies ketorolac [From Toradol] Allergy (Verified 10/25/20 14:11) Other cephalexin [From Keflex] Adverse Reaction (Verified 10/25/20 14:11) Vomiting divalproex sodium [From Depakote] Adverse Reaction (Verified 10/25/20 14:11) dizzy Opioids - Morphine Analogues Adverse Reaction (Verified 10/25/20 14:11) irritable topiramate Adverse Reaction (Verified 10/25/20 14:11) Unknown varenicline [From Chantix] Adverse Reaction (Verified 10/25/20 14:11) irritation zolpidem Adverse Reaction (Verified 10/25/20 14:11) sleepwalking Primary Care Physician: Abiel Marin DO [Primary Care Provider] - Prior records reviewed: Yes Past Medical History: - - Reviewed in problem list Surgical History: noncontributory, tonsillectomy Lives: Alone Smoking Status: Current every day smoker Alcohol: Occasional Drugs: - - Methamphetamine - Family History Maternal Family History: Family History (Last Reviewed 03/24/18 @ 11:27 by Vanessa Blanco) Mother Diabetes Hypertension Heart disease Father Diabetes Hypertension Sister Myocardial infarction Family History: Reports: - - mother had heart attack 60 Paternal Family History: Family History (Last Reviewed 03/24/18 @ 11:27 by Vanessa Blanco) Mother Diabetes Hypertension Heart disease Father Diabetes Hypertension Sister Myocardial infarction Family History: Reports: - - father had heart disease in his late 30's Review of Systems General: Denies: Chills, Fever, Malaise Eyes: Reports: Blurred vision - left, Blurred vision - right ENT: Denies: Rhinorrhea, Sore throat Cardiovascular: Reports: Heart racing. Denies: Chest pain Respiratory: Reports: Dyspnea. Denies: Cough, Sputum Gastrointestinal: Denies: Abdominal pain, Nausea, Vomiting Genitourinary: Denies: Dysuria, Hematuria Musculoskeletal: Denies: Myalgias, Arthralgias Skin: Denies: Rash, Abscess Neurological: Denies: Headache, Parasthesia, Numbness Physical Exam Vital Signs/Narrative: Vital Signs Temp Pulse Resp BP Pulse Ox 10/25/20 14:09 97.4 F L 108 H 24 H 149/130 H 100 10/25/20 14:06 97.8 F 106 H 24 H 149/130 H 100 Diagnostic/Tx/Re-eval - Rhythm Strip Rhythm Strip: Sinus Rhythm Rate: 98 - EKG Initial EKG Interpretation: Sinus Rhythm, No Acute Injury Pattern - PACs - Medical Decision Making 40-year-old male presenting with shortness of breath. He is initially concerned that he might have emphysema and he is waiting to be tested for this. Patient also states that he has anxiety and feels it is necessary to use a nonrebreather which is helping him breathe. Patient has had no symptoms of viral syndrome. It was reported by EMS that patient does use methamphetamine. Urine drug screen is pending. Patient's chest x-ray is interpreted by myself shows cardiomegaly, vascular congestion, pleural effusion which is new since previous x-rays. EKG is sinus rhythm with PACs without signs of ischemic changes interpreted by myself. Patient has a slight leukocytosis of 12,000. Patient's vital signs have been stable in the ER. Given these findings I did add a BNP which is greater than 400. I did order a CT of the brain to evaluate the patient's visual complaints however he declined stating that he has anxiety over being in the CT scanner. I did order a urine drug screen as well as a Covid swab however patient refused. Patient reportedly became hostile with staff and wanted to sign out AMA. Appropriate paperwork was signed. Patient counseled on the risks of signing out AGAINST MEDICAL ADVICE and was told this likely represents congestive heart failure. Congestive heart failure was explained to him and he still wished to sign out AMA. Impression: 1. CHF 2. Dyspnea ED Disposition - Plan for ED Patient: Disposition: Against Medical Advice Instructions: ED Heart Failure, Congestive (CHF) Referrals: Abiel Marin DO [Primary Care Provider] -
[2020-10-25 16:01] LABS: Anion Gap 5 (5-15); BUN 13 mg/dL (7-18); BUN/Creat Ratio 15.8 RATIO (10-20); Calcium,Total 8.6 mg/dL (8.5-10.1); Chloride 104 mmol/L (98-107); Creatinine, Serum 0.82 mg/dL (0.70-1.30); EST Glomerular Filtration Rate 111 mL/min (>60); Est Glom Filt Rate - Afr Amer 134 mL/min (>60); Estimated Creatinine Clearance 138.04 ml/min; Glucose 134 mg/dL (74-106); Potassium 4.2 mmol/L (3.5-5.1); Sodium Level 137 mmol/L (136-145)
[2020-10-25 16:18] LABS: Absolute Lymphocyte Count 1.79 X10^3/uL (0.83-4.51); Absolute Neutrophil Count 7.9 X10^3/uL (2.0-7.7); Basophil# 0.05 X10^3/uL; Basophil% 0.4 % (0-1); Eosinophil# 1.29 X10^3/uL; Eosinophils% 10.7 % (0-5); Hematocrit 47.3 % (40-54); Hemoglobin 14.8 g/dL (13.0-16.5); Lymphocyte # 1.79 X10^3/ul (4.0); Lymphocyte % 14.8 % (19-41); Mean Corp Hgb Conc 31.3 g/dL (32-36); Mean Corpuscular Hgb 26.1 pg (27.0-32.0); Mean Corpuscular Volume 83.6 fL (80-94); Mean Platelet Vol. 10.4 fl (6.2-12.0); Monocyte# 1.03 X10^3/uL; Monocyte% 8.5 % (0-10); NRBC Flagged by Analyzer 0 % (0-5); Neutrophil # 7.89 X10^3/uL (2.7-7.7); Neutrophil % 65.2 % (47-70); POSITIVE MORPHOLOGY YES; Platelet Count 240 K/mm3 (150-450); RBC Distribution Width CV 14.5 % (11.6-14.6); RBC Distribution Width SD 43.9 fl (35.1-43.9); Red Blood Count 5.66 M/mm3 (4.6-6.2); White Blood Count 12.1 K/mm3 (4.4-11.0)
[2020-10-25 16:23] LABS: Differential Indicated SCAN CRITERIA MET
--- NOTE | 2020-10-25 16:25 | RAD_ITS ---
STUDY: X-RAY CHEST REASON FOR EXAM: Male, 40 years old. Shortness of breath TECHNIQUE: Frontal view of the chest COMPARISON: 08/26/20 FINDINGS: There are mild congestive changes. There is a moderate layering right pleural effusion. There is no significant left effusion. The heart is enlarged. This is stable when compared with the prior exam. There is no pneumothorax. The visualized osseous structures are within normal limits. RAD/Chest 1 View (Portable) IMPRESSION: Cardiomegaly with mild pulmonary vascular congestion and a moderate right pleural effusion. Electronically Signed: Alex Gottlieb MD at 16:44 EST Tel , Service support ,
--- NOTE | 2020-10-25 16:52 | ED.RN ---
PT REFUSING CT SCAN. ALERT AND ORIENTED X3. DR RAO AWARE-NNO VOICED.
[2020-10-25 16:54] LABS: Platelet Estimate ADEQUATE (ADEQ); Red Cell Morphology NORM C+C NORMAL (NORM C&C)
--- NOTE | 2020-10-25 17:04 | ED.RN ---
ATTEMPTED TO COLLECT RAPID COVID SWAB. PT REFUSED AND STATES GET THIS IV OUT OF MY ARM. I'M GOING HOME. ATTEMPTED TO EXPLAIN HOW RAPID COVID SWAB IS COLLECTED AND PT CONTINUES TO REFUSE SWAB. DR RAO IN TO SPEAK TO PT ABOUT LAB RESULTS. PT STATES HE NEEDS TO CALL HIS DAD. PT NOT SURE IF HE'S STAYING OR GOING HOME. WILL MONITOR.
== END 2020-10-25 17:48 | disposition left against medical advice (07) ==
PROVIDERS: Emergency Provider Student in an Organized Health Care Education/Training Program; PCP Family Medicine
DX: I11.0 Hypertensive heart disease with heart failure (principal); I50.9 Heart failure, unspecified; Z20.822 Contact with and (suspected) exposure to COVID-19; I47.1 Supraventricular tachycardia; G47.33 Obstructive sleep apnea (adult) (pediatric); F17.200 Nicotine dependence, unspecified, uncomplicated; F31.81 Bipolar II disorder; F41.9 Anxiety disorder, unspecified; Z79.899 Other long term (current) drug therapy
CPT/HCPCS: 71045; 80048; 83880; 84484; 85025; 87426; 93005; 99285; A4216

== ENCOUNTER 2020-11-04 22:17 | Inpatient (IN) | payer MEDICAID, SELFPAY ==
[2020-10-25 14:06] VITALS: BMI 53.5
[2020-11-04 22:18] VITALS: BP 152/76; PULSE 83; RESP 22; TEMP 36.6; O2SAT 89; BMI 52.7
--- NOTE | 2020-11-04 22:26 | RAD_ITS ---
C/O CHEST PAIN, WORSE WITH DEEP BREATH, SOB X 1.5 WEEKS, CHF, SEEN PREVIOUSLY FOR SAME. LAST USE OF METH 4-5 DAYS AGO PER PT. EXAMINATION/TECHNIQUE: XR Chest 1 View: COMPARISON: None FINDINGS: LINES/DEVICES: None. LUNGS: No consolidation, edema or effusion. No pneumothorax. MEDIASTINUM AND CARDIOVASCULAR STRUCTURES: Cardiac silhouette not enlarged. Central airways and mediastinal contour are unremarkable. BONES AND SOFT TISSUES: Unremarkable. RAD/Chest 1 View (Portable) IMPRESSION: Mild vascular congestion similar to prior study Enlarged cardiac silhouette at 2305 Reported and signed by: Nicole Bernard DO Electronically Signed: Nicole Bernard DO at 23:04 EST Tel , Service support ,
--- NOTE | 2020-11-04 22:26 | EKG12_ITS ---
Test Reason : SOB Blood Pressure : / mmHG Vent. Rate : 099 BPM Atrial Rate : 099 BPM P-R Int : 186 ms QRS Dur : 124 ms QT Int : 400 ms P-R-T Axes : 009 -31 033 degrees QTc Int : 513 ms Normal sinus rhythm Possible Left atrial enlargement Left axis deviation Non-specific intra-ventricular conduction delay Abnormal ECG Confirmed by DAYANARA ALLEN, TIMOTEO ([id number]), dictionary editor NOEMY FRANCISCO ([id number]) on 11/06/2020 8:26:35 AM Referred By: MARIBETH Confirmed By:TIMOTEO NICHOLE MD
[2020-11-04 22:30] VITALS: BP 158/76; PULSE 93; RESP 24; O2SAT 96
--- NOTE | 2020-11-04 22:34 | ED.VISSUMM ---
- ER Visit Summary Date of Service: 11/04/20 Chief Complaint: Chest pain and shortness of breath History of Present Illness: The patient is a 40 M who presents with chest pain shortness of breath. He has had the symptoms for the last 10 days. The pain is sharp and pressure-like in the middle portion of his chest and radiates to the left. Exertion makes it worst and rest makes it better. He also notes shortness of breath. He has had a cough with nonproductive of sputum. He states that he passed out twice today at home. He has a history of CHF and hypertension. He is on no home oxygen. He admits to using methamphetamines, 4 to 5 days ago. He is also a cigarette smoker. Physical Examination: Vital signs reviewed. He is 89% on room air. HEENT exam unremarkable. Heart is regular rate and rhythm without murmurs. Lungs have diffuse rhonchorous breath sounds as well as wheezing bilaterally. Abdomen is soft and nontender. Extremities reveal no edema. Peripheral pulses are equal. Skin exam normal. Neurologic exam normal. Test Results: EKG is normal sinus rhythm with rate of 99. Nonspecific ST-T wave changes noted. Unchanged from previous from October 25. Chest x-ray shows cardiomegaly with mild vascular congestion. White blood count 14.4, creatinine 1.54. Covid is negative. Troponin is 0.044 which is unchanged from last week. BNP is 1025 which is increasing from 400. D-dimer normal. Emergency Department Course and Treatment: Patient was given Decadron and albuterol upon arrival. I did give him Lasix as well. He did desaturate to 83% on room air when out of bed. I feel the patients CHF is likely contributing to his symptoms. I feel he would benefit from admission to the hospital. I discussed with the hospitalist for admission Treatment Plan: [] Disposition: Admit Impression: CHF, hypoxia This note was generated with [employer] dictation software. It may contain incorrect words, spelling, and punctuation that were not noted in review of the chart prior to signing ED Disposition - Plan for ED Patient: Referrals: Abiel Marin DO [Primary Care Provider] -
[2020-11-04 22:35] VITALS: PULSE 95; RESP 20
[2020-11-04] MEDS: Albuterol 2.5 MG/3 ML VIAL.NEB. INHALATION (22:36)
[2020-11-04 22:54] VITALS: BP 111/75; PULSE 102; RESP 32; O2SAT 97
[2020-11-04 22:55] LABS: Absolute Lymphocyte Count 3.43 X10^3/uL (0.83-4.51); Absolute Neutrophil Count 9.8 X10^3/uL (2.0-7.7); Basophil# 0.08 X10^3/uL; Basophil% 0.6 % (0-1); Hematocrit 50.1 % (40-54); Hemoglobin 15.6 g/dL (13.0-16.5); Lymphocyte # 3.43 X10^3/ul (4.0); Lymphocyte % 23.8 % (19-41); Mean Corp Hgb Conc 31.1 g/dL (32-36); Mean Corpuscular Hgb 26.4 pg (27.0-32.0); Mean Corpuscular Volume 84.8 fL (80-94); Monocyte# 1.09 X10^3/uL; Monocyte% 7.5 % (0-10); NRBC Flagged by Analyzer 0 % (0-5); Neutrophil # 9.75 X10^3/uL (2.7-7.7); Neutrophil % 67.5 % (47-70); Platelet Count 347 K/mm3 (150-450); RBC Distribution Width CV 14.5 % (11.6-14.6); RBC Distribution Width SD 44.6 fl (35.1-43.9); Red Blood Count 5.91 M/mm3 (4.6-6.2); White Blood Count 14.4 K/mm3 (4.4-11.0)
[2020-11-04 23:07] LABS: D-Dimer Quantitative (DVT/PE) < 0.27 FEU/ug/m (0.27-0.49)
[2020-11-04 23:12] LABS: Anion Gap 5 (5-15); BUN 14 mg/dL (7-18); BUN/Creat Ratio 9.1 RATIO (10-20); Calcium,Total 8.8 mg/dL (8.5-10.1); Chloride 106 mmol/L (98-107); Creatinine, Serum 1.54 mg/dL (0.70-1.30); EST Glomerular Filtration Rate 54 mL/min (>60); Est Glom Filt Rate - Afr Amer 65 mL/min (>60); Glucose 150 mg/dL (74-106); Potassium 5.1 mmol/L (3.5-5.1); Sodium Level 137 mmol/L (136-145)
[2020-11-04] MEDS: dexAMETHasone 10 MG/ML Vial 6 MG IV (23:12)
[2020-11-04 23:13] LABS: BNP,B-Type NATRIURETIC PEPTIDE 1025.5 pg/mL (0-100)
[2020-11-04 23:19] VITALS: O2SAT 83
[2020-11-04 23:35] VITALS: BP 92/77; PULSE 103; RESP 32; TEMP 36.6; O2SAT 97
--- NOTE | 2020-11-04 23:58 | HP.PCM_ITS ---
Problem List (1) Heart failure with preserved ejection fraction Status: Acute (2) Obstructive sleep apnea Status: Chronic (3) Bipolar II disorder Status: Chronic (4) Nicotine dependence Status: Chronic (5) Morbid obesity Status: Chronic (6) Rapid palpitations Status: Chronic (7) HTN (hypertension) Status: Chronic (8) SVT (supraventricular tachycardia) Status: Chronic (9) Aortic root dilatation Status: Chronic History of Present Illness Date of Admission: 11/04/20 Chief Complaint: SOB The patient is a 40 year old M with a significant history of attention deficit disorder; chronic lower back pain; hypertension; lumbar spondylosis; morbid obesity; nicotine dependence; posttraumatic stress disorder and methamphetamine abuse who presents emergency department with a 2-week history of progressively worsening shortness of breath. Shortness of breath is present at rest and it increases markedly with exertion. Associated with his symptoms is orthopnea and paroxysmal nocturnal dyspnea. He reports middle back pain which had been disappeared at the time of examination. He denies weight gain. He denies chest pain. At the emergency department initially his oxygen saturation was 89% on room and upon getting up his oxygen saturation dropped to 83% on room air. He was at our emergency department on 10/25/2020 with same symptoms. He was diagnosed with congestive heart failure and he left AGAINST MEDICAL ADVICE. Past Medical History Past Medical History (Chronic Problems): Chronic Problems (Last Reviewed 03/24/18 @ 11:27 by Vanessa Blanco) Obstructive sleep apnea (Chronic) Bipolar II disorder (Chronic) Nicotine dependence (Chronic) Morbid obesity (Chronic) Rapid palpitations (Chronic) HTN (hypertension) (Chronic) SVT (supraventricular tachycardia) (Chronic) Aortic root dilatation (Chronic) Medical History: Medical History (Last Reviewed 11/05/20 @ 00:[address] Aleksander Desir MD) Nicotine dependence (Chronic) F17.200 Morbid obesity (Chronic) E66.01 HTN (hypertension) (Chronic) I10 SVT (supraventricular tachycardia) (Chronic) I47.1 Aortic root dilatation (Chronic) I77.810 ADD (attention deficit disorder) F98.8 Amnesia R41.3 Anxiety F41.9 Arthritis M19.90 Chronic low back pain M54.5, G89.29 Fatty liver K76.0 Gastric ulcer K25.9 Lumbar spondylolysis M43.06 Obstructive sleep apnea G47.33 PTSD (post-traumatic stress disorder) F43.10 RLS (restless legs syndrome) G25.81 Allergies ketorolac [From Toradol] Allergy (Verified 10/25/20 14:11) Other cephalexin [From Keflex] Adverse Reaction (Verified 10/25/20 14:11) Vomiting divalproex sodium [From Depakote] Adverse Reaction (Verified 10/25/20 14:11) dizzy Opioids - Morphine Analogues Adverse Reaction (Verified 10/25/20 14:11) irritable topiramate Adverse Reaction (Verified 10/25/20 14:11) Unknown varenicline [From Chantix] Adverse Reaction (Verified 10/25/20 14:11) irritation zolpidem Adverse Reaction (Verified 10/25/20 14:11) sleepwalking Home Medications: Ambulatory Orders Medication Instructions Recorded Sumatriptan Succinate [Imitrex] 100 mg PO .X1 PRN 06/21/18 Metoprolol Tartrate [Lopressor 50 mg PO BID 09/13/19 (Beta Hailey)] Gabapentin 600 mg PO BID 09/29/19 Surgical History: Surgical History (Last Reviewed 11/05/20 @ 00:[address] Aleksander Desir MD) History of tonsillectomy Z90.89 Surgical History: tonsillectomy Smoking Status: Current every day smoker Tobacco Use: Cigarettes Drugs: - - He snorts methamphetamine - *Family History Maternal Family History: Family History (Last Reviewed 11/05/20 @ 00:[address] Aleksander Desir MD) Mother Diabetes Hypertension Heart disease Father Diabetes Hypertension Sister Myocardial infarction History Items: - - mother had heart attack 60 Paternal Family History: Family History (Last Reviewed 11/05/20 @ 00:[address] Aleksander Desir MD) Mother Diabetes Hypertension Heart disease Father Diabetes Hypertension Sister Myocardial infarction History Items: - - father had heart disease in his late 30's Review of Systems Constitutional: Denies: Chills, Fever, Weight Change HEENT: Denies: Head Aches, Sinus Congestion, Sinus Drainage Cardiovascular: Reports: Orthopnea, Paroxysmal Noc. Dyspnea. Denies: Chest Pain, Palpitations Respiratory: Reports: Cough, Shortness of Breath. Denies: Sputum production Gastrointestinal: Denies: Abdominal Pain, Nausea, Vomiting Genitourinary: Denies: Dysuria Musculoskeletal: Denies: Joint Pain, Joint Tenderness Skin: Denies: Rash, Wounds Neurological: Denies: Numbness, Tingling, Focal weakness Psychiatric: Denies: Anxiety, Depression, Homicidal Ideations, Suicidal Ideations Hematologic/ Lymphatic: Denies: Easy Bruising, Easy Bleeding VTE Information - Inpt Only VTE Present on Admission: No VTE Mechan Device Prophylaxis: None VTE Pharm Prophylaxis ordered?: Yes Patient Problems: Active and Suspected Problems (Last Reviewed 03/24/18 @ 11:27 by Vanessa Blanco) Heart failure with preserved ejection fraction (Acute) - Physical Exam Vitals/I&O's: Vital Signs Temp Pulse Resp BP Pulse Ox 97.9 F 103 H 32 H 92/77 97 11/04/20 23:35 11/04/20 23:35 11/04/20 23:35 11/04/20 23:35 11/04/20 23:35 Oxygen Flow Rate (L/min) 2 Oxygen Delivery Method Nasal Cannula Weight: 181.5 kg Body Mass Index (BMI) 52.7 General: Alert, Oriented x3, Cooperative HEENT: Atraumatic, PERRLA, EOMI, Normocephalic Neck: Supple, No JVD, Negative Carotid Bruits Lungs: Diminished, Tachypneic, Using Accessory Muscles Cardiovascular: Regular rate, Normal S1, Normal S2, No murmurs Abdomen: Bowel Sounds Present, Soft, Non Tender Extremities: No edema, Capillary Refill Less than 3 Seconds Skin: - - Dusky bilateral legs and feet. Musculoskeletal: No Tenderness to Palpation of Joints or Extremities Neurological: Cranial nerves II-XII grossly intact Psych/Mental Status: Anxious Microbiology Past 72 Hours 11/04/20 22:45 Mucosa - Nose SARS-CoV-2 Antigen (Rapid) - Final Laboratory Results 11/04/20 22:45: WBC 14.4 H, RBC 5.91, Hgb 15.6, Hct 50.1, MCV 84.8, MCH 26.4 L, MCHC 31.1 L, RDW Std Deviation 44.6 H, RDW Coeff of Funmilayo 14.5, Plt Count 347, MPV 10.0, Immature Gran % (Auto) 0.600, Neut % (Auto) 67.5, Lymph % (Auto) 23.8, [place] % (Auto) 7.5, Eos % (Auto) 0.0, Baso % (Auto) 0.6, Absolute Neuts (auto) 9.8 H, Absolute Lymphs (auto) 3.43, Nucleated RBC % 0 11/04/20 22:45: D-Dimer Quant (PE/DVT) < 0.27 L 11/04/20 22:45: Sodium 137, Potassium 5.1, Chloride 106, Carbon Dioxide 26.0, Anion Gap 5, BUN 14, Creatinine 1.54 H, Estim Creat Clear Calc 73.50, Est GFR (MDRD) Af Amer 65, Est GFR (MDRD) Non-Af 54 L, BUN/Creatinine Ratio 9.1 L, Glucose 150 H, Calcium 8.8, Troponin I 0.044 11/04/20 22:45: B-Natriuretic Peptide 1025.5 H Assessment/Plan All Active Problems (Last Reviewed 03/24/18 @ 11:27 by Vanessa Blanco) Heart failure with preserved ejection fraction (Acute) The patient is a 40 year old M with a significant history of attention deficit disorder; chronic lower back pain; hypertension; lumbar spondylosis; morbid obesity; nicotine dependence; posttraumatic stress disorder and methamphetamine abuse who presents to the emergency department with a 2-week history of progressively worsening shortness of breath; and found to have elevated BNP and chest x-ray findings of pulmonary congestion. Acute exacerbation of heart failure; unspecified ejection fraction Place on monitored bed at the progressive care unit Weight on admission at the floor; and then daily Strict I&O's Radiologist impression of chest x-ray: Mild vascular congestion similar to prior study. Enlarged cardiac silhouette heart. Actual image of current chest x-ray and previous chest x-ray image was independently interpreted. I agree with radiologist interpretation. EKG independently reviewed showed intraventricular conduction delay. BNP was 1025.5. This is the highest BMP on file so far. Previous highest BNP was on 10/25/2020 at 443. Lasix 40 mg IV push given at emergency department. We will continue patient on Lasix 40 mg IV twice daily. Last echocardiogram on file was on 06/18/2017. That echocardiogram showed an ejection fraction of 65%. The left atrium was mildly enlarged. It was technically difficult study and right ventricular systolic pressure/pulmonary artery pressure could not be estimated. Aortic root was mildly dilated. Echo ordered to evaluate LVEF and wall motion ordered. Since it is more than 3 years since last echocardiogram. Patient may be in exacerbation of heart failure with preserved ejection fraction or he might have developed reduced ejection fraction. Monitor electrolytes and renal function. Potassium is 5.1. No potassium supplementation at this time. Trend blood pressure Fluid restriction of 1500 mls daily Covid test was negative. Initially patient received Decadron and breathing treatment at the emergency department. Patient symptomatology is more consistent with congestive heart failure and not Covid. Mucinex ordered Cardiac diet ordered. BRIJESH Creatinine of 1.54 Review of old record shows a creatinine baseline of less than 1. Normal BUN. BUN over creatinine is 9.1. Likely cardiorenal syndrome. IV Lasix as above. Avoid nephrotoxic's De-escalate home gabapentin. Peripheral artery disease Patient with dusky and cold legs and feet Arterial duplex ordered Methamphetamine use He reported that he is home Adderall was discontinued and methamphetamine has been a substitute for him. Counseled. Hypertension Blood pressure is not within goal Metoprolol continued Trend blood pressure and adjust blood pressure medications. Tobacco abuse Counseled. Declined nicotine patch Chronic pain Patient with chronic back pain and bilateral leg pain. K pad prn ordered. Continue gabapentin. Obstructive sleep apnea Reportedly he was supposed to be on CPAP/BiPAP which he is unable to tolerate at home. Patient declines CPAP/BiPAP at this time. Morbid Obesity BMI: 52.8. Complicates care. Lifestyle modification recommended. DVT prophylaxis Subcutaneous lovenox adjusted for weight. Advance care planning: Discussed with patient advanced directives as well as CODE STATUS. Explained various CODE STATUS: FULL CODE, DNR CCA, DNR CCA with no intubation, and DNR CC- and what each meant. Patient elected to be a DNR CCA with no intubation. Order was placed. Time spent on discussion 16 minutes. Inpatient E&M: 22648 Init Hosp L3
[2020-11-05] VITALS (14 sets, daily range): BP systolic 101–145; BP diastolic 54–123; PULSE 77–101; RESP 15–24; TEMP 36.1–36.9; O2SAT 92–96; BMI 51.3; BMI 52.8
--- NOTE | 2020-11-05 00:09 | ECHOCS_ITS ---
Version 2 Reason For Study: DYSPNEA Procedure This was a 2D Doppler, Color Flow transthoracic echocardiogram. The study was technically difficult. Contrast injection was performed. Exam performed portable in patient room. Left Ventricle Normal LV size. Moderate concentric left ventricular hypertrophy. Left ventricular systolic function is normal. The estimated ejection fraction is 55 %. Stage 2 diastolic dysfunction. No regional wall motion abnormalities noted. Right Ventricle Normal RV size. Normal systolic function. Tricuspid Valve Normal tricuspid valve. Mild to moderate (1-2+) tricuspid valve insufficiency. Pulmonary artery systolic pressure is 46 mmHg. Mild pulmonary hypertension. Aortic Valve Trisinus/trileaflet aortic valve. Pulmonic Valve Normal pulmonic valve. Great Vessels Mildly dilated aortic root. The pulmonary artery is normal size. Normal inferior vena cava. Pericardium/Pleural No pericardial effusion. Medication Diluted definity 5.0ml given slow IV push to enhance endocardial definition. MMode/2D Measurements & Calculations LVIDd: 6.2 cm IVSd: 1.7 cm Ao root diam: 4.8 cm LVIDs: 4.8 cm LVPWd: 1.7 cm RVDd: 5.9 cm FS: 22.9 % LAV(MOD-bp): 108.0 ml LVAd ap4: 55.3 cm2 SV(MOD-sp4): 109.6 ml LAV(MOD-bp) Indexed: 37.7 ml/m2 EDV(MOD-sp4): 246.5 ml LAV(MOD-sp2): 96.3 ml EDV(sp4-el): 261.9 ml LAV(MOD-sp4): 113.4 ml LVAs ap4: 37.8 cm2 ESV(MOD-sp4): 136.8 ml ESV(sp4-el): 145.8 ml EF(MOD-sp4): 44.5 % EF(sp4-el): 44.4 % SV(sp4-el): 116.2 ml LA dimension(2D): 4.8 cm LA A4 area: 29.7 cm2 RA A4 area: 28.3 cm2 Time Measurements MV dec time: 0.23 sec Doppler Measurements & Calculations MV E max fran: 92.2 cm/sec Lat Peak E' Fran: 11.1 cm/sec Med Peak E' Fran: 8.1 cm/sec MV A max fran: 55.2 cm/sec E/E' lat: 8.3 E/E' med: 11.3 MV E/A: 1.7 Ao V2 max: 143.9 cm/sec LV V1 max: 101.5 cm/sec TR max fran: 330.5 cm/sec Ao max P.3 mmHg LV V1 max P.1 mmHg TR max P.7 mmHg Interpretation Summary Normal LV size. Left ventricular systolic function is normal. Moderate concentric left ventricular hypertrophy. The estimated ejection fraction is 55 %. Pulmonary artery systolic pressure is 46 mmHg. Mild pulmonary hypertension. Stage 2 diastolic dysfunction. Ordering Physician: Aleksander Desir Referring Physician: MP ALMAGUER Performed By: Roberta Castellano, CESARIO, RVT
[2020-11-05] MEDS: Ondansetron 4 MG/2 ML Vial IV (01:02)
[2020-11-05] MEDS: 0.9% Saline Lock 10 ML Syringe IV ×3 (01:02→17:29)
[2020-11-05] MEDS: Acetaminophen 325 MG Tablet 650 MG PO (01:02)
--- NOTE | 2020-11-05 01:52 | PCS.PANDOC ---
PANDEMIC DOCUMENTATION INITIATED: Date: 11/05/2020 Time: 010
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
[2020-11-05 06:20] LABS: Absolute Lymphocyte Count 1.26 X10^3/uL (0.83-4.51); Absolute Neutrophil Count 11.3 X10^3/uL (2.0-7.7); Basophil# 0.04 X10^3/uL; Basophil% 0.3 % (0-1); Hematocrit 48.5 % (40-54); Hemoglobin 14.9 g/dL (13.0-16.5); Lymphocyte # 1.26 X10^3/ul (4.0); Lymphocyte % 9.7 % (19-41); Mean Corp Hgb Conc 30.7 g/dL (32-36); Mean Corpuscular Hgb 26.3 pg (27.0-32.0); Mean Corpuscular Volume 85.5 fL (80-94); Mean Platelet Vol. 10.2 fl (6.2-12.0); Monocyte# 0.27 X10^3/uL; Monocyte% 2.1 % (0-10); NRBC Flagged by Analyzer 0 % (0-5); Neutrophil # 11.31 X10^3/uL (2.7-7.7); Neutrophil % 87.3 % (47-70); Platelet Count 299 K/mm3 (150-450); RBC Distribution Width CV 14.5 % (11.6-14.6); RBC Distribution Width SD 45.4 fl (35.1-43.9); Red Blood Count 5.67 M/mm3 (4.6-6.2)
[2020-11-05 06:42] LABS: Anion Gap 6 (5-15); BUN 17 mg/dL (7-18); BUN/Creat Ratio 13.8 RATIO (10-20); Calcium,Total 8.6 mg/dL (8.5-10.1); Chloride 104 mmol/L (98-107); Cholesterol 163 mg/dL (200); Creatinine, Serum 1.23 mg/dL (0.70-1.30); EST Glomerular Filtration Rate 70 mL/min (>60); Est Glom Filt Rate - Afr Amer 84 mL/min (>60); Estimated Creatinine Clearance 92.03 ml/min; Glucose 170 mg/dL (74-106); High Density Lipoprotein 34 mg/dL; Potassium 4.3 mmol/L (3.5-5.1); Sodium Level 136 mmol/L (136-145); Triglycerides 128 mg/dL; Very Low Density Lipoprotein 26 mg/dL (5-40)
[2020-11-05] MEDS: Furosemide 40 MG/4 ML Vial IV ×3 (09:09→17:29)
[2020-11-05] MEDS: Metoprolol Tartrate 50 MG Tablet PO (10:14)
[2020-11-05] MEDS: guaiFENesin 1,200 MG Tablet 1200 MG PO (10:14)
[2020-11-05] MEDS: Gabapentin 300 MG Capsule PO (10:14)
--- NOTE | 2020-11-05 10:30 | CASEMGMT ---
SHAUNA GALLEGOS Face to Face with patient for initial transition planning/care coordination assessment. RN CM introduced self and role at [facility]. Patient lying in bed, alert and oriented. Patient willing to participate in assessment and is able to answer all questions appropriately. Care providers, pharmacy, and demographics verified. Patient wishes to discharge home, denies need for home health at this time. Patient states he has no further needs or concerns at this time. CM to follow for discharge planning needs that may arise. PCP: Tomas Specialists: none Preferred Pharmacy: [facility] Insurance: Kuli Kuli Prescription Benefit: yes Living Will/HPOA: none LNOK: friend Living Arrangements: patient lives alone in a 2nd floor apartment with 2 flights or stairs. Patient states he is independent and able to ambulate stairs. Transportation: self/friend DME/HHC: Patient states he has cpap at home. Patient states he smokes 1/2 PPD of cigarettes and does meth 1-2 times per month. SHAUNA GALLEGOS inquired if he would like resources for quitting and patient states no. Disposition Plan: Patient to discharge home with follow-up plans in place. Mary PULIDO, RN, CM
--- NOTE | 2020-11-05 11:13 | CASEMGMT ---
This RN CM to room to complete CM assessment at this time and pt is sleeping without distress at this time. Pt does not awaken to knock on door or verbal stimuli at this time. CM to attempt again later. SStaten RN CM
--- NOTE | 2020-11-05 14:15 | NURSING ---
Pt educated on difference of imitrex and maxalt at this time for migraine tx. Pt verbalizes that he is going to try to sleep at this time to avoid need for medication for migraine. Will continue to monitor. Maxalt left on NOV if needed later.
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
--- NOTE | 2020-11-05 17:03 | CON.PCM_ITS ---
Reason for Consult Date of Consultation: 11/05/20 Reason for Consultation: Shortness of breath History of Present Illness: The patient is a 40 year old M with no past medical history other than nicotine dependence, posttraumatic stress disorder, hypertension, amphetamine use who presented to the emergency room yesterday complaining of shortness of breath and apparently having passed out. This was apparently brief. He denies any chest pain no paroxysmal nocturnal dyspnea or pedal edema he has not had any pedal edema. He has not been very compliant with his medications. He was noted to have an elevated natruretic peptide level. Cardiology was called to see him on the basis of the above. [] Past Medical History Allergies/Adverse Reactions: Allergies cephalexin [From Keflex] Adverse Reaction (Verified 11/05/20 00:18) Vomiting divalproex sodium [From Depakote] Adverse Reaction (Verified 11/05/20 00:18) dizzy ketorolac [From Toradol] Adverse Reaction (Verified 11/05/20 00:18) Other twitch Opioids - Morphine Analogues Adverse Reaction (Verified 11/05/20 00:18) irritable topiramate Adverse Reaction (Verified 11/05/20 00:18) Unknown varenicline [From Chantix] Adverse Reaction (Verified 11/05/20 00:18) irritation zolpidem Adverse Reaction (Verified 11/05/20 00:18) sleepwalking Home Medications: Ambulatory Orders Medication Instructions Recorded Sumatriptan Succinate [Imitrex] 100 mg PO .X1 PRN 06/21/18 Metoprolol Tartrate [Lopressor 50 mg PO BID 09/13/19 (Beta Hailey)] Gabapentin 600 mg PO BID 09/29/19 Past Medical History (Chronic Problems): Chronic Problems (Last Reviewed 11/05/20 @ 00:[address] Aleksander Desir MD) Obstructive sleep apnea (Chronic) Bipolar II disorder (Chronic) Nicotine dependence (Chronic) Morbid obesity (Chronic) Rapid palpitations (Chronic) HTN (hypertension) (Chronic) SVT (supraventricular tachycardia) (Chronic) Aortic root dilatation (Chronic) Surgical History: tonsillectomy - *Family History Maternal Family History: Family History (Last Reviewed 11/05/20 @ 00:[address] Aleksander Desir MD) Mother Diabetes Hypertension Heart disease Father Diabetes Hypertension Sister Myocardial infarction History Items: - - mother had heart attack 60 Paternal Family History: Family History (Last Reviewed 11/05/20 @ 00:[address] Aleksander Desir MD) Mother Diabetes Hypertension Heart disease Father Diabetes Hypertension Sister Myocardial infarction History Items: - - father had heart disease in his late 30's Smoking Status: Current every day smoker Tobacco Use: Cigarettes Alcohol: None Drugs: - - He snorts methamphetamine Review of Systems - Review of Systems General: Denies: Fever, Night Sweats, Fatigue HEENT: Denies: Vision Change Cardiovascular: Reports: Shortness of Breath. Denies: Chest Discomfort, Orthopnea, PND, Peripheral Edema, Palpitations, Lightheadedness, Dizziness, Near Syncope, Syncope Respiratory: Denies: Cough, Sputum Production, Hemoptysis Gastrointestinal: Denies: Hematemesis, Hematochezia, Melena Genitourinary: Denies: Dysuria, Hematuria Skin: Denies: Rash Neurological: Reports: Dizziness Endocrine: Denies: Heat Intolerance Hematologic/ Lymphatic: Denies: Anemia Subjectve: Pleasant man in no distress rather anxious Objective: Vital Signs Temp Pulse Resp BP Pulse Ox 98.0 F 88 18 106/77 93 11/05/20 14:02 11/05/20 14:02 11/05/20 14:02 11/05/20 14:02 11/05/20 15:11 Oxygen Flow Rate (L/min) 1 Oxygen Delivery Method Room Air Weight: 392 lb 6.765 oz Body Mass Index (BMI) 51.3 Intake and Output for Last 24 Hours 11/03/20 11/04/20 11/05/20 23:59 23:59 23:59 Intake Total 300 / 300 Output Total 3600 / 3600 Balance -3300 / -3300 General: Awake, Alert, Oriented x 3 HEENT: PERRL, EOMI, Sclera Non Icteric Neck: Supple, Good ROM, No Lymph Node Enlargement Lungs: Clear to auscultation Cardiovascular: Regular Rhythm, Normal S1, Normal S2, No Murmurs, No Rubs, No Gallops Vascular: No Carotid Bruits, Normal Femoral Pulses, Normal Radial Pulses, Normal Dorsalis Pedal Pulse, Normal Posterior Tibial Pulses Abdomen: Bowel Sounds Present, Soft, Non Tender, No HSM, No Organomegaly Extremities: No Cyanosis, No Clubbing, No edema Neurological: No Focal Motor or Sensory Deficit 11/04/20 22:45: WBC 14.4 H, RBC 5.91, Hgb 15.6, Hct 50.1, MCV 84.8, MCH 26.4 L, MCHC 31.1 L, Plt Count 347, MPV 10.0, Immature Gran % (Auto) 0.600, Neut % (Auto) 67.5, Lymph % (Auto) 23.8, [place] % (Auto) 7.5, Eos % (Auto) 0.0, Baso % (Auto) 0.6, Absolute Neuts (auto) 9.8 H, Nucleated RBC % 0 11/04/20 22:45: D-Dimer Quant (PE/DVT) < 0.27 L 11/04/20 22:45: Sodium 137, Potassium 5.1, Chloride 106, Carbon Dioxide 26.0, Anion Gap 5, BUN 14, Creatinine 1.54 H, Est GFR (MDRD) Af Amer 65, Est GFR (MDRD) Non-Af 54 L, BUN/Creatinine Ratio 9.1 L, Glucose 150 H, Calcium 8.8, Troponin I 0.044 11/04/20 22:45: B-Natriuretic Peptide 1025.5 H 11/05/20 06:06: WBC 13.0 H, RBC 5.67, Hgb 14.9, Hct 48.5, MCV 85.5, MCH 26.3 L, MCHC 30.7 L, Plt Count 299, MPV 10.2, Immature Gran % (Auto) 0.600, Neut % (Auto) 87.3 H, Lymph % (Auto) 9.7 L, [place] % (Auto) 2.1, Eos % (Auto) 0.0, Baso % (Auto) 0.3, Absolute Neuts (auto) 11.3 H, Nucleated RBC % 0 11/05/20 06:06: Sodium 136, Potassium 4.3, Chloride 104, Carbon Dioxide 26.0, Anion Gap 6, BUN 17, Creatinine 1.23, Est GFR (MDRD) Af Amer 84, Est GFR (MDRD) Non-Af 70, BUN/Creatinine Ratio 13.8, Glucose 170 H, Calcium 8.6, Triglycerides 128, Cholesterol 163, LDL Cholesterol 103, VLDL Cholesterol 26, HDL Cholesterol 34 L Rhythm: EKG: ECHO: Stress Test: Cardiac Cath: PCI: CT Surgery: Holter monitor: EPS: PPM: CXR: Chest CT Scan: Assessment/Plan 1. Shortness of breath * The above is likely secondary to diastolic dysfunction with the elevated natruretic peptide. He does have preserved ejection fraction. My recommendation at this time would be to institute diuresis and treat his likely obstructive sleep apnea. At this time I would not recommend any other testing. Medication compliance has been emphasized. * Will start Lasix with 40 mg a day 2. Hypertension He does have a history of hypertension. I would recommend at this time that we aggressively treat his high blood pressure. I would not suggest that we make any particular changes. * Would recommend continuing beta-hailey * Start diuretics with Lasix 40 mg a day Follow-up as outpatient with the primary physician.
--- NOTE | 2020-11-05 17:34 | PCM.PROGNOTE ---
Patient Problems: Active and Suspected Problems (Last Reviewed 11/05/20 @ 00:[address] Aleksander Desir MD) Heart failure with preserved ejection fraction (Acute) Subjective: Patient was seen and examined today, I had cardiology see the patient today due to concerns of needing further testing (e.g. stress test, catheterization)-radiology does not feel the patient needs further testing at this time and recommends the patient be maintained on a diuretic and medication for his blood pressure. - Physical Exam Vitals/I&O's: Vital Signs Temp Pulse Resp BP Pulse Ox 98.0 F 88 18 106/77 93 11/05/20 14:02 11/05/20 14:02 11/05/20 14:02 11/05/20 14:02 11/05/20 15:11 Oxygen Flow Rate (L/min) 1 Oxygen Delivery Method Room Air Weight: 178 kg Body Mass Index (BMI) 51.3 Intake and Output for Last 24 Hours 11/03/20 11/04/20 11/05/20 23:59 23:59 23:59 Intake Total 300 / 300 Output Total 3600 / 3600 Balance -3300 / -3300 General: Alert, Oriented x3, Cooperative, No apparent distress, Well developed, Well nourished HEENT: Atraumatic, PERRLA, EOMI, Normocephalic Oral: Moist Mucosa Neck: Supple, No JVD, Trachea Midline, Thyroid Normal Size and Texture Lungs: Clear to auscultation, Normal air movement, No rhonchi, No wheeze, No rales Cardiovascular: Regular rate, Regular Rhythm, Normal S1, Normal S2, No murmurs Abdomen: Bowel Sounds Present, Soft, Non Tender, Non-Distended, Obese Extremities: No clubbing, No cyanosis, No edema, Capillary Refill Less than 3 Seconds Skin: No rashes, No breakdown Musculoskeletal: No Tenderness to Palpation of Joints or Extremities Neurological: Cranial nerves II-XII grossly intact, Neuro grossly intact, Sensory exam intact to light touch and pain, Coordination normal Psych/Mental Status: Normal Affect, Appropriate, Alert and oriented to time, place, person, mood and affect Microbiology Past 72 Hours 11/04/20 22:45 Mucosa - Nose SARS-CoV-2 Antigen (Rapid) - Final Laboratory Results 11/04/20 22:45: WBC 14.4 H, RBC 5.91, Hgb 15.6, Hct 50.1, MCV 84.8, MCH 26.4 L, MCHC 31.1 L, RDW Std Deviation 44.6 H, RDW Coeff of Funmilayo 14.5, Plt Count 347, MPV 10.0, Immature Gran % (Auto) 0.600, Neut % (Auto) 67.5, Lymph % (Auto) 23.8, Whitman % (Auto) 7.5, Eos % (Auto) 0.0, Baso % (Auto) 0.6, Absolute Neuts (auto) 9.8 H, Absolute Lymphs (auto) 3.43, Nucleated RBC % 0 11/04/20 22:45: D-Dimer Quant (PE/DVT) < 0.27 L 11/04/20 22:45: Sodium 137, Potassium 5.1, Chloride 106, Carbon Dioxide 26.0, Anion Gap 5, BUN 14, Creatinine 1.54 H, Estim Creat Clear Calc 73.50, Est GFR (MDRD) Af Amer 65, Est GFR (MDRD) Non-Af 54 L, BUN/Creatinine Ratio 9.1 L, Glucose 150 H, Calcium 8.8, Troponin I 0.044 11/04/20 22:45: B-Natriuretic Peptide 1025.5 H 11/05/20 06:06: WBC 13.0 H, RBC 5.67, Hgb 14.9, Hct 48.5, MCV 85.5, MCH 26.3 L, MCHC 30.7 L, RDW Std Deviation 45.4 H, RDW Coeff of Funmilayo 14.5, Plt Count 299, MPV 10.2, Immature Gran % (Auto) 0.600, Neut % (Auto) 87.3 H, Lymph % (Auto) 9.7 L, Whitman % (Auto) 2.1, Eos % (Auto) 0.0, Baso % (Auto) 0.3, Absolute Neuts (auto) 11.3 H, Absolute Lymphs (auto) 1.26, Nucleated RBC % 0 11/05/20 06:06: Sodium 136, Potassium 4.3, Chloride 104, Carbon Dioxide 26.0, Anion Gap 6, BUN 17, Creatinine 1.23, Estim Creat Clear Calc 92.03, Est GFR (MDRD) Af Amer 84, Est GFR (MDRD) Non-Af 70, BUN/Creatinine Ratio 13.8, Glucose 170 H, Calcium 8.6, Triglycerides 128, Cholesterol 163, LDL Cholesterol 103, VLDL Cholesterol 26, HDL Cholesterol 34 L Current Medications Acetaminophen (Acetaminophen 325 Mg Tablet) 650 mg PO Q6H PRN PRN PRN Reason: Pain Score 1-10/Temp > 100.7 F Last Admin: 11/05/20 01:02 Dose: 650 mg Documented by: Albuterol Sulfate (Albuterol 2.5 Mg/3 Ml Vial.Neb.) 2.5 mg INHALATION X1 ONE Stop: 11/05/20 17:34 Enoxaparin Sodium (Enoxaparin 40 Mg/0.4 Ml Syringe) 40 mg SC BID [facility] Last Admin: 11/05/20 10:15 Dose: Not Given Documented by: Furosemide (Furosemide 40 Mg/4 Ml Vial) 40 mg IV BID@1000,1800 [facility] Last Admin: 11/05/20 17:29 Dose: 40 mg Documented by: Gabapentin (Gabapentin 300 Mg Capsule) 300 mg PO BID [facility] Last Admin: 11/05/20 10:14 Dose: 300 mg Documented by: Guaifenesin (Guaifenesin 1,200 Mg Tablet) 1,200 mg PO BID [facility] Last Admin: 11/05/20 10:14 Dose: 1,200 mg Documented by: Melatonin (Melatonin 3 Mg Tablet) 3 mg PO QHS PRN PRN PRN Reason: INSOMNIA Metoprolol Tartrate (Metoprolol Tartrate 50 Mg Tablet) 50 mg PO BID [facility] Last Admin: 11/05/20 10:14 Dose: 50 mg Documented by: Ondansetron HCl (Ondansetron 4 Mg/2 Ml Vial) 4 mg IV Q8H PRN PRN PRN Reason: NAUSEA/VOMITING Last Admin: 11/05/20 01:02 Dose: 4 mg Documented by: Senna/Docusate Sodium (Senna/Docusate Sodium 1 Tablet) 2 tablet PO BID PRN PRN PRN Reason: Constipation Sodium Chloride (0.9% Saline Lock 10 Ml Syringe) 10 - 40 ml IV UD PRN PRN Reason: SALINE FLUSH Last Admin: 11/05/20 17:29 Dose: 10 ml Documented by: Medical Necessity - Tobacco Use Smoking Status: Current every day smoker Tobacco Use: Cigarettes Assessment/Plan All Active Problems (Last Reviewed 11/05/20 @ 00:[address] Aleksander Desir MD) Heart failure with preserved ejection fraction (Acute) #1 acute diastolic congestive heart failure-patient will be maintained on Lasix as an outpatient #2 mild pulmonary hypertension #3 morbid obesity #4 obstructive sleep apnea with noncompliance to treatment #5 essential hypertension #6 hypoxia secondary to #1-patient is currently on room air, he will be reevaluated tomorrow #7 chronic migraines Inpatient E&M: 00189 Subs Hosp L2
[2020-11-05] MEDS: Albuterol 2.5 MG/3 ML VIAL.NEB. INHALATION (17:55)
--- NOTE | 2020-11-05 21:46 | NURSING ---
Charge nurse called to room by patient. Patient states he is leaving. Patient encouraged to stay by Javon Suazo RN, but patient adamant that he wants to leave and go home. Patient AOx4. Dr. House notified by Charge nurse Zelda. KEITH paper reviewed with patient and signed. This RN escorted patient to main entrance of hospital where his ride was waiting.
--- NOTE | 2020-11-06 17:21 | DS.PCM_ITS ---
Discharge Date and Diagnosis - Problem List Patient Problems: Active and Suspected Problems (Last Reviewed 11/05/20 @ 00:[address] Aleksander Desir MD) Heart failure with preserved ejection fraction (Acute) Date of Admission: 11/04/20 Date of Discharge: 11/05/20 - Primary Discharge Diagnosis Acute Problems: Active Problems (Last Reviewed 11/05/20 @ 00:[address] Aleksander Desir MD) 1 acute diastolic congestive heart failure #2 mild pulmonary hypertension #3 morbid obesity #4 obstructive sleep apnea with noncompliance to treatment #5 essential hypertension #6 hypoxia secondary to #1 #7 chronic migraines #8 noncompliance with medical treatment - Secondary Discharge Diagnosis Chronic Problems: Chronic Problems (Last Reviewed 11/05/20 @ 00:[address] Aleksander Desir MD) Obstructive sleep apnea (Chronic) Bipolar II disorder (Chronic) Nicotine dependence (Chronic) Morbid obesity (Chronic) Rapid palpitations (Chronic) HTN (hypertension) (Chronic) SVT (supraventricular tachycardia) (Chronic) Aortic root dilatation (Chronic) Hospital Course and Treatment Operations: None Procedures: 2-D Echocardiogram Summary of Care Provided: The patient is a 40 year old M was seen in the emergency room at [facility] with chief complaint of chest pain or shortness of breath, he complained of the symptoms for approximately 10 days. Patient also complained of brief periods of syncope. Examination in the emergency room showed his pulse ox to be 89% on room air, EKG showed normal sinus rhythm with a rate of 99, chest x-ray showed cardiomegaly with mild vascular congestion, troponin was 0.044, beta natruretic peptide was 1025. Patient's D-dimer was normal. Patient was given Decadron and albuterol upon arrival, when out of bed walking in the emergency room his pulse ox went down to 83% on room air and the patient was felt to benefit from an admission for CHF. Patient was admitted to PCU, given IV diuretics, underwent an echocardiogram which showed normal EF with mild pulmonary hypertension. Patient was seen in consultation by cardiology who felt that the patient was noncompliant with home medication treatment and recommended encouraging the patient to be compliant with his medications at home. On 11/05/2020, patient was seen and examined: On examination he appeared in good health and spirits. Vital signs as documented. Skin warm and dry and without overt rashes. Neck without JVD, neck was supple, trachea midline, thyroid was normal. Lungs clear bilaterally, normal air movement was noted. Heart exam notable for regular rhythm, normal sounds and absence of murmurs, rubs or gallops. Abdomen unremarkable and without evidence of organomegaly, masses, or abdominal aortic enlargement, patient was morbidly obese. Bowel sounds are present, abdomen is not distended. Extremities nonedematous, no cyanosis was noted, no clubbing was noted. Neuro: Cranial nerves II through XII are grossly intact, no focal motor deficits were noted, sensation to light touch and pinprick intact, motor exam 5/5 throughout. Psych: Patient is alert and orient ed x3, he does not appear anxious or depressed, he does not appear agitated. In the evening of 11/05/2020, patient approached nursing and demanded to be discharged, he was discharged AMA at that point. Patient Problems: Active and Suspected Problems (Last Reviewed 11/05/20 @ 00:[address] Aleksander Desir MD) Heart failure with preserved ejection fraction (Acute) - Physical Exam Vitals/I&O's: Vital Signs Temp Pulse Resp BP Pulse Ox 98.2 F 99 18 112/54 L 93 11/05/20 20:00 11/05/20 20:00 11/05/20 20:00 11/05/20 20:00 11/05/20 20:00 Oxygen Flow Rate (L/min) 1 Oxygen Delivery Method Room Air Weight: 178 kg Body Mass Index (BMI) 51.3 Intake and Output for Last 24 Hours 11/04/20 11/05/20 11/06/20 23:59 23:59 23:59 Intake Total 700 / 700 Output Total 4350 / 4350 Balance -3650 / -3650 Microbiology Past 72 Hours 11/04/20 22:45 Mucosa - Nose SARS-CoV-2 Antigen (Rapid) - Final Home Medications: Medications to take at Discharge Sumatriptan Succinate [Imitrex] 100 mg PO .X1 PRN 06/21/18 Metoprolol Tartrate [Lopressor (Beta Hailey)] 50 mg PO BID 09/13/19 Gabapentin 600 mg PO BID 09/29/19 Primary Care Physician: Abiel Marin DO [Primary Care Provider] - Disposition: Against Medical Advice Minutes spent on discharge:: 31 Patient Condition:: Stable Medical Necessity - Tobacco Use Smoking Status: Current every day smoker Tobacco Use: Cigarettes Meaningful Use Info Meaningful Use Diagnoses (Choose all that apply): CHF - CHF NORAH/ARB ordered at discharge?: No Reason NORAH/ARB not ordered?: Allergy - Not recommended due to preserved ejection fraction Documented LVEF (%): 55 Inpatient E&M: 14916 Disch Hosp
== END 2020-11-05 21:40 | disposition left against medical advice (07) | DRG 194 ==
LOC: ED 23:20 → PCU 23:42
PROVIDERS: Admitting Provider Hospitalist; Emergency Provider Emergency Medicine; PCP Family Medicine; Visit Provider Internal Medicine
DX: I13.0 Hypertensive heart and chronic kidney disease with heart failure and stage 1 through stage 4 chronic kidney disease, or unspecified chronic kidney disease (principal); I50.31 Acute diastolic (congestive) heart failure; N17.9 Acute kidney failure, unspecified; N18.9 Chronic kidney disease, unspecified; I27.20 Pulmonary hypertension, unspecified; R09.02 Hypoxemia; Z20.822 Contact with and (suspected) exposure to COVID-19; G43.909 Migraine, unspecified, not intractable, without status migrainosus; G25.81 Restless legs syndrome; E66.01 Morbid (severe) obesity due to excess calories; G47.33 Obstructive sleep apnea (adult) (pediatric); I73.9 Peripheral vascular disease, unspecified; G89.29 Other chronic pain; M54.9 Dorsalgia, unspecified; M79.604 Pain in right leg; M79.605 Pain in left leg; F15.10 Other stimulant abuse, uncomplicated; F17.210 Nicotine dependence, cigarettes, uncomplicated; Z91.14 Patient's other noncompliance with medication regimen; Z91.19 Patient's noncompliance with other medical treatment and regimen; Z68.43 Body mass index [BMI] 50.0-59.9, adult; Z79.899 Other long term (current) drug therapy
CPT/HCPCS: 36415; 71045; 80048; 80061; 83880; 84484; 85025; 85379; 87426; 93005; 93306; 94640; 99285; Q9957; A4216; C8929; J1940; J2405

== ENCOUNTER → 2020-11-13 15:54 | Outpatient (CLI) | payer MEDICAID, SELFPAY ==
[2020-11-05 00:12] VITALS: BMI 51.3
[2020-11-13 17:40] LABS: Anion Gap 4 (5-15); BUN 14 mg/dL (7-18); BUN/Creat Ratio 15.5 RATIO (10-20); Chloride 106 mmol/L (98-107); Creatinine, Serum 0.91 mg/dL (0.70-1.30); EST Glomerular Filtration Rate 99 mL/min (>60); Est Glom Filt Rate - Afr Amer 120 mL/min (>60); Glucose 183 mg/dL (74-106); Potassium 4.1 mmol/L (3.5-5.1); Sodium Level 137 mmol/L (136-145)
[2020-11-13 17:45] LABS: Hemoglobin A1c 6.9 % (3.8-5.6)
[2020-11-13 17:55] LABS: BNP,B-Type NATRIURETIC PEPTIDE 363.3 pg/mL (0-100)
== END ==
PROVIDERS: PCP Family Medicine; Visit Provider Family Medicine
DX: I11.0 Hypertensive heart disease with heart failure (principal); I50.9 Heart failure, unspecified; R73.01 Impaired fasting glucose
CPT/HCPCS: 36415; 80048; 83036; 83880

== ENCOUNTER 2020-12-17 13:47 | Emergency (ER) | payer MEDICAID, SELFPAY ==
[2020-11-05 00:12] VITALS: BMI 51.3
[2020-12-17 13:51] VITALS: BP 190/144; PULSE 117; RESP 24; TEMP 36.6; O2SAT 97; BMI 54.3
--- NOTE | 2020-12-17 14:12 | EKG12_ITS ---
Test Reason : CP Blood Pressure : / mmHG Vent. Rate : 112 BPM Atrial Rate : 112 BPM P-R Int : 178 ms QRS Dur : 116 ms QT Int : 338 ms P-R-T Axes : 050 -42 036 degrees QTc Int : 461 ms Sinus tachycardia Possible Left atrial enlargement Left axis deviation Abnormal ECG Confirmed by TJ ALLEN, LATRICE ([id number]), editor & co founder BLANCA DÍAZ ([id number]) on 12/20/2020 12:27:22 PM Referred By: LORNE Confirmed By:FREDO SPENCER MD
[2020-12-17 14:28] VITALS: PULSE 126; RESP 24
[2020-12-17] MEDS: Albuterol 2.5 MG/3 ML VIAL.NEB. INHALATION ×3 (14:28)
[2020-12-17] MEDS: Ipratropium/Albuterol Sulfate 3 ML AMPUL.NEB INHALATION (14:28)
[2020-12-17 14:29] LABS: Absolute Lymphocyte Count 2.57 X10^3/uL (0.83-4.51); Absolute Neutrophil Count 7.9 X10^3/uL (2.0-7.7); Basophil# 0.06 X10^3/uL; Basophil% 0.5 % (0-1); Hematocrit 51.7 % (40-54); Hemoglobin 15.8 g/dL (13.0-16.5); Lymphocyte # 2.57 X10^3/ul (4.0); Lymphocyte % 22.7 % (19-41); Mean Corp Hgb Conc 30.6 g/dL (32-36); Mean Corpuscular Hgb 25.3 pg (27.0-32.0); Mean Corpuscular Volume 82.9 fL (80-94); Mean Platelet Vol. 10.1 fl (6.2-12.0); Monocyte# 0.77 X10^3/uL; Monocyte% 6.8 % (0-10); NRBC Flagged by Analyzer 0 % (0-5); Neutrophil # 7.87 X10^3/uL (2.7-7.7); Neutrophil % 69.6 % (47-70); Platelet Count 281 K/mm3 (150-450); RBC Distribution Width CV 15.2 % (11.6-14.6); RBC Distribution Width SD 45.1 fl (35.1-43.9); Red Blood Count 6.24 M/mm3 (4.6-6.2); White Blood Count 11.3 K/mm3 (4.4-11.0)
[2020-12-17 14:46] LABS: Allen Test Positive; Base Excess 6 mmol/L (-2 to +2); Bicarbonate 31.4 mmol/L (22-26); Blood Gas Specimen Type ART; O2 Delivery Device Cannula; PO2 34 mmHG (75-100); SITE R Radial; SO2 59 % (95-99); Total Carbon Dioxide 33 mmol/L; pCO2 58.5 mmHg (35-45); pH 7.34 (7.35-7.45)
[2020-12-17 14:47] LABS: Anion Gap 2 (5-15); BNP,B-Type NATRIURETIC PEPTIDE 625.6 pg/mL (0-100); BUN 14 mg/dL (7-18); BUN/Creat Ratio 17.6 RATIO (10-20); Chloride 105 mmol/L (98-107); EST Glomerular Filtration Rate 115 mL/min (>60); Est Glom Filt Rate - Afr Amer 140 mL/min (>60); Estimated Creatinine Clearance 141.49 ml/min; Glucose 163 mg/dL (74-106); Potassium 4.1 mmol/L (3.5-5.1); Sodium Level 140 mmol/L (136-145)
[2020-12-17] MEDS: Ziprasidone IM 20 MG/ML VIAL IM (14:55)
[2020-12-17 14:57] LABS: Lactic Acid 1.6 mmol/L (0.4-1.9)
--- NOTE | 2020-12-17 14:58 | CPS ---
Pt started on nebulizer treatment and shortly after pt took mask off. This therapist instructed he needed to leave the mask on, it will help him breath. Pt continues to take mask off and state he can't breath. This therapist continued to encourage pt to leave the mask on. Pt then became extremely frustrated and ripped mask off and threw it across the room. Pt stated he couldn't do it that he was claustrophobic. This therapist then tried to calm pt down and got a new mask and encouraged pt to hold the mask to his face if he couldn't wear it. Pt agreeable with this. Pt continues to state he wants some meds.
[2020-12-17 15:09] VITALS: PULSE 114; RESP 25; O2SAT 96
--- NOTE | 2020-12-17 15:19 | ED.RN ---
pt insisting on leaving AMA. Dr. Clayton attempted to speak with pt. Pt called Dr. Clayton a piece of shit. as he walked out. Pt punched the wall walking out to leave the ED. pt left prior to AMA papers being signed,
--- NOTE | 2020-12-17 15:40 | ED.VISSUMM ---
- ER Visit Summary Date of Service: 12/17/20 Chief Complaint: Chest pain History of Present Illness: The patient is a 40 [address] goes to [address] Marin. He reports he has chest pain that began at 6:00 this morning while sleeping peritoneal mitten pain was 10 minutes of time. Is now 10 hours and is pain-free currently. Describes it as an aching pain. Is worsened by sitting up straight. Is relieved by laying on his right side. Reports has been nauseated and short of breath with this. He denies any vomiting or diaphoresis. Reports this is similar to when he had CHF in the past. Review of systems patient planes of cough for the past month it is nonproductive. He denies any fever or chills. He denies any other complaints. Physical Examination: Vitals: Stable. Afebrile. General: Well-nourished and well-developed. Head: Normocephalic atraumatic. Neck: Supple, no lymphadenopathy. No JVD. Nontender. Cardiovascular: Tachycardic regular rhythm. No murmurs. Respiratory: Mild respiratory distress. Moderate wheezing bilaterally with decreased air movement. Abdominal: Soft, nontender, nondistended, normal bowel sounds. No guarding, rebound, or peritoneal signs. Back: Nontender. Extremities: Nontender, no edema. Skin: Normal color, no rash. Neurologic: Alert and oriented ?3. Cranial nerves II through XII are intact. Normal strength and sensation. Psych: Agitated. Test Results: EKG is sinus tach at [address] changes. CBC shows a white count of 11.3. Chem-7 shows a CO2 of 33 and glucose of 163. Troponin 0 0.076. BNP is 625.6. Emergency Department Course and Treatment: Patient was very agitated and verbally abusive to staff. He was given albuterol and Atrovent aerosols. He pulled out his IV prior to getting his dose of Solu-Medrol. He was asking for something to help him relax and was given Geodon IM without any improvement. Patient is insistent that he is going to leave. Treatment Plan: I had a prolonged discussion the patient that he does not have his home oxygen here. That this could be his heart and that he could . He understands this and would like to leave regardless. He denies any suicidal ideation. He stood up and walked out of the emergency department on his own without difficulty. Disposition: Left AGAINST MEDICAL ADVICE Impression: 1. Dyspnea. 2. COPD. 3. Indeterminate troponin. 4. Left AGAINST MEDICAL ADVICE. This note was generated with [employer] dictation software. It may contain incorrect words, spelling, and punctuation that were not noted in review of the chart prior to signing ED Disposition - Plan for ED Patient: Disposition: Against Medical Advice Referrals: Abiel Marin DO [Primary Care Provider] -
== END 2020-12-17 15:23 | disposition left against medical advice (07) ==
PROVIDERS: Emergency Provider Emergency Medicine; PCP Family Medicine
DX: R06.00 Dyspnea, unspecified (principal); J44.9 Chronic obstructive pulmonary disease, unspecified; Z53.29 Procedure and treatment not carried out because of patient's decision for other reasons; R07.9 Chest pain, unspecified; R45.1 Restlessness and agitation; R11.0 Nausea; Z20.822 Contact with and (suspected) exposure to COVID-19; Z79.899 Other long term (current) drug therapy
CPT/HCPCS: 36600; 80048; 82803; 83605; 83880; 84484; 85025; 87040; 87426; 93005; 94640; J3486

== ENCOUNTER 2020-12-17 16:16 | Inpatient (IN) | payer MEDICAID, SELFPAY ==
[2020-12-17] VITALS (27 sets, daily range): BP systolic 117–229; BP diastolic 77–216; PULSE 94–127; RESP 12–30; TEMP 36.2–36.8; O2SAT 91–98; BMI 54.3; BMI 53.5; BMI 53.8
--- NOTE | 2020-12-17 16:30 | RAD_ITS ---
STUDY: X-RAY CHEST REASON FOR EXAM: Male, 40 years old. SOB TECHNIQUE: Single AP portable view of the chest. COMPARISON: FINDINGS: Poor inspiration with some bibasilar atelectasis. There is no demonstrated pleural abnormality. There is moderate cardiac enlargement. Normal mediastinum and devi. Normal visualized pulmonary arteries. Normal visualized aortic arch and descending thoracic aorta. Normal visualized thoracic spine. Normal visualized ribs, clavicles, and shoulders. There is no demonstrated abnormality of the visualized soft tissue structures of the upper abdomen. RAD/Chest 1 View (Portable) IMPRESSION: Poor inspiration with some bibasilar atelectasis. Electronically Signed: Puneet Perez MD at 16:48 EDT Tel , Service support ,
[2020-12-17] MEDS: Albuterol 2.5 MG/3 ML VIAL.NEB. INHALATION ×3 (16:50)
[2020-12-17] MEDS: MethylPREDNISolone 125 MG/2 ML Vial IV (16:51)
[2020-12-17] MEDS: Furosemide 40 MG/4 ML Vial IV (16:58)
[2020-12-17] MEDS: Enalaprilat 1.25 MG/ML Vial IV (16:58)
--- NOTE | 2020-12-17 17:00 | ED.RN ---
PT HAS BEEN DROWSY SINCE ARRIVING BY EMS. PT WAS GIVEN GEODON TO AMA. PT DID NOT COMPLAIN DURING IV ATTEMPTS.
--- NOTE | 2020-12-17 17:21 | ED.DCSUM_ITS ---
- ER Visit Summary Date of Service: 12/17/20 Chief Complaint: Shortness of breath History of Present Illness: The patient is a [address] Marin. Patient was seen in the emergency department less than an hour ago and left AGAINST MEDICAL ADVICE. He called a friend to pick him up and she convinced him to call EMS and come back in. Please see that dictation for the details of his presentation. Physical Examination: Vitals: Afebrile, 191/130, 113, 23, 96% on 6 L nasal cannula. General: Well-nourished and well-developed. Head: Normocephalic atraumatic. Neck: Supple, no lymphadenopathy. No JVD. Nontender. Cardiovascular: Tachycardic regular rhythm. No murmurs. Respiratory: Mild respiratory distress with wheezing bilaterally and poor air movement. Abdominal: Soft, nontender, nondistended, normal bowel sounds. No guarding, rebound, or peritoneal signs. Back: Nontender. Extremities: Nontender, no edema. Skin: Normal color, no rash. Neurologic: Alert and oriented ?3. Cranial nerves II through XII are intact. Normal strength and sensation. Psych: Agitated. Test Results: Patient had a chest x-ray obtained. Shows a poor inspiration. Emergency Department Course and Treatment: Patient was given albuterol and Atrovent aerosols. He was given Solu-Medrol IV. His blood pressure was very elevated and he was given Vasotec and Lasix IV. Patient became combative again in the emergency department. He clearly is not able to make a rational decision at this point following Geodon. He was placed on a Precedex drip. On his last admission to the hospital the patient had a prolonged discussion with the hospitalist and was documented DNR Comfort Care arrest. As I am not able to have that conversation with him at this time I feel that respecting those wishes is in his best interest. Treatment Plan: Patient will be discussed with the hospitalist and admitted for further evaluation and treatment. Disposition: Admitted in serious condition. Impression: 1. Dyspnea. 2. COPD. 3. Hypertensive urgency. 4. Indeterminate troponin. This note was generated with [employer] software. It may contain incorrect words, spelling, and punctuation that were not noted in review of the chart prior to signing ED Disposition - Plan for ED Patient: Referrals: Abiel Marin DO [Primary Care Provider] -
--- NOTE | 2020-12-17 17:29 | ED.RN ---
PT JUMPED OUT OF BED, TEARING LEADS, O2, BP CUFF OFF. PT BRIEFLY WALKED IN ROOM ATTEMPTING TO PULL RUVALCABA OUT. PT RETURNED TO BED.
--- NOTE | 2020-12-17 17:51 | ED.RN ---
2 attempts to call ICU
--- NOTE | 2020-12-17 17:52 | ED.RN ---
SHAUNA Sims from ICU stated she will call when she is out of an isolation room.
--- NOTE | 2020-12-17 17:57 | HP.PCM_ITS ---
<Christine Harris - Last Filed: 12/17/20 17:57> Problem List (1) Heart failure with preserved ejection fraction Status: Acute Qualifiers: Heart failure chronicity: acute on chronic Qualified Code(s): I50.33 - Acute on chronic diastolic (congestive) heart failure (2) HTN (hypertension) Status: Chronic Qualifiers: Hypertension type: essential hypertension Qualified Code(s): I10 - Essential (primary) hypertension (3) Methamphetamine abuse Status: Chronic (4) Obstructive sleep apnea Status: Chronic (5) Bipolar II disorder Status: Chronic (6) Nicotine dependence Status: Chronic (7) Morbid obesity Status: Chronic History of Present Illness Date of Admission: 12/17/20 Chief Complaint: Shortness of breath, chest pain The patient is a 40 year old M who originally presented to the ER with complaints of chest pain and shortness of breath since 0600 and subsequently left against medical advice. However, approximately 1 hour after leaving against medical advice patient's friend was able to convince him to come back due to the severity of his symptoms. Patient was combative in the ER during both visits, had received Geodon during initial presentation and soon became drowsy after returning. Patient is currently sleeping in ER bed. Unable to obtain a thorough history at this time due to patient drowsiness following administration of Geodon. Past Medical History Past Medical History (Chronic Problems): Chronic Problems (Last Reviewed 12/17/20 @ 18:04 by Christine Harris NP-C) Obstructive sleep apnea (Chronic) Bipolar II disorder (Chronic) Methamphetamine abuse (Chronic) Nicotine dependence (Chronic) Morbid obesity (Chronic) Rapid palpitations (Chronic) HTN (hypertension) (Chronic) SVT (supraventricular tachycardia) (Chronic) Aortic root dilatation (Chronic) Medical History: Medical History (Last Reviewed 12/17/20 @ 18:04 by Christine Harris NP-C) Nicotine dependence (Chronic) F17.200 Morbid obesity (Chronic) E66.01 HTN (hypertension) (Chronic) I10 SVT (supraventricular tachycardia) (Chronic) I47.1 Aortic root dilatation (Chronic) I77.810 ADD (attention deficit disorder) F98.8 Amnesia R41.3 Anxiety F41.9 Arthritis M19.90 Chronic low back pain M54.5, G89.29 Fatty liver K76.0 Gastric ulcer K25.9 Lumbar spondylolysis M43.06 Obstructive sleep apnea G47.33 PTSD (post-traumatic stress disorder) F43.10 RLS (restless legs syndrome) G25.81 Allergies cephalexin [From Keflex] Adverse Reaction (Verified 12/17/20 13:54) Vomiting divalproex sodium [From Depakote] Adverse Reaction (Verified 12/17/20 13:54) dizzy ketorolac [From Toradol] Adverse Reaction (Verified 12/17/20 13:54) Other twitch Opioids - Morphine Analogues Adverse Reaction (Verified 12/17/20 13:54) irritable topiramate Adverse Reaction (Verified 12/17/20 13:54) Unknown varenicline [From Chantix] Adverse Reaction (Verified 12/17/20 13:54) irritation zolpidem Adverse Reaction (Verified 12/17/20 13:54) sleepwalking Home Medications: Ambulatory Orders Medication Instructions Recorded Sumatriptan Succinate [Imitrex] 100 mg PO .X1 PRN 06/21/18 Metoprolol Tartrate [Lopressor 50 mg PO BID 09/13/19 (Beta Hailey)] Gabapentin 600 mg PO BID 09/29/19 Surgical History: Surgical History (Last Reviewed 12/17/20 @ 18:04 by Christine Harris NP-C) History of tonsillectomy Z90.89 Surgical History: tonsillectomy Psychiatric History: Bipolar Smoking Status: Current every day smoker Drugs: - - Meth amphetamines, last dose 2 days ago - *Family History Maternal Family History: Family History (Last Reviewed 11/05/20 @ 00:[address] Aleksander Desir MD) Mother Diabetes Hypertension Heart disease Father Diabetes Hypertension Sister Myocardial infarction History Items: - - mother had heart attack 60 Paternal Family History: Family History (Last Reviewed 11/05/20 @ 00:[address] Aleksander Desir MD) Mother Diabetes Hypertension Heart disease Father Diabetes Hypertension Sister Myocardial infarction History Items: - - father had heart disease in his late 30's Review of Systems Unable to obtain accurate/complete ROS d/t: Patient drowsy and uncooperative when awake VTE Information - Inpt Only VTE Present on Admission: No VTE Mechan Device Prophylaxis: None VTE Pharm Prophylaxis ordered?: Yes Patient Problems: Active and Suspected Problems (Last Reviewed 12/17/20 @ 18:04 by Christine Harris NP-C) Heart failure with preserved ejection fraction (Acute) - Physical Exam Vitals/I&O's: Vital Signs Temp Pulse Resp BP Pulse Ox 98.3 F 111 H 21 H 212/133 H 98 12/17/20 17:38 12/17/20 17:38 12/17/20 17:38 12/17/20 17:38 12/17/20 17:38 Oxygen Flow Rate (L/min) 6 Oxygen Delivery Method Nasal Cannula Weight: 405 lb 13.936 oz Body Mass Index (BMI) 53.5 General: Lethargic, Non-Cooperative HEENT: Atraumatic, PERRLA, EOMI, Normocephalic Neck: Supple, No JVD, Negative Carotid Bruits Lungs: Diminished, Short of Breath, Tachypneic, Wheezes Cardiovascular: Regular Rhythm, Normal S1, Normal S2, No murmurs, Tachycardic Abdomen: Bowel Sounds Present, Soft, Non Tender Extremities: No edema, Capillary Refill Less than 3 Seconds, Peripheral Pulses Normal Skin: No rashes, No breakdown, - - Multiple bruises in various stages of healing to bilateral legs Musculoskeletal: No Tenderness to Palpation of Joints or Extremities Neurological: Cranial nerves II-XII grossly intact Psych/Mental Status: Impulsive, Irrational Behavior Current Medications Dexmedetomidine HCl 400 mcg/ (Sodium Chloride) 100 mls @ 23.013 mls/hr CONT INF .Q4H21M [facility]; Protocol Last Admin: 12/17/20 17:34 Dose: 0.5 mcg/kg/hr, 23 mls/hr Documented by: Azithromycin 500 mg/ Dextrose 255 mls @ 250 mls/hr IV X1 ONE Stop: 12/17/20 18:32 Assessment/Plan All Active Problems (Last Reviewed 12/17/20 @ 18:04 by Christine Harris, LICENSED NUCLEAR CONTROL ROOM OPERATOR-C) Heart failure with preserved ejection fraction (Acute) 1. Acute on chronic CHF with preserved EF -BNP elevated 625.6. -Lasix 40 mg IV x1 given in ER, will continue upon admission. -Will trend troponins overnight as initial troponin mildly elevated 0.076. -Chest x-ray shows poor inspiration with some bibasilar atelectasis. -Continue O2 therapy to maintain SpO2 >90%. 2. Hypertensive emergency -blood pressure continues to be elevated despite Vasotec given in ER. -Will start Labetalol IV and Hydralazine IV as well as patients home Metoprolol PO. 3. Obstructive sleep apnea -patient noncompliant with treatment. 4. Morbid obesity -will consult nutrition and initiate 1800-calorie controlled cardiac diet. 5. Bipolar 2 disorder -patient currently not on medication, presented with agitation and was combative, currently on precedex. 6. Methamphetamine abuse -Last use 2 days ago. 7. Nicotine abuse -Nicoderm TD patch 21mg ordered. DVT prophylaxis-SQ Lovenox This patient was seen by MARKO Graham under the supervision of Dr. Rodriguez. <Venkat Rodriguez - Last Filed: 12/17/20 19:33> History of Present Illness The patient is a 40 year old M with morbid obesity, COPD, frequent AMA, last 1 in October 2020 came to ER with mid central localized chest pain and shortness of breath in the morning. He signed AMA. Patient was very aggressive, agitated and signed AMA but soon was sent back to ER by his friend as he was very short of breath, tachypneic and hypoxic. Patient complain of chest pain at 6 AM in the morning mainly on sitting up but relieved on lying down, localized about 8- 9/10 intensity in the morning before he signed AMA from ED. He was also nauseated. Patient has elevated troponin 0 0.076 and BNP 625.6. ABG showed seven-point 3/58/34 on 2 L of oxygen through nasal cannula. Mild leukocytosis. Chest x-ray was reviewed and is a poor quality, hypoventilated with poor inspiratory effort and cardiomegaly. It looks mild congestion. EKG shows sinus tachycardia 112 bpm, LAD, QTC 461 ms. Second time, patient was given Ativan and ziprasidone. Patient also with hypertensive emergency and blood pressure was high 230/216, 212/145, enalapril 1.25 mg IV and Lasix 40 g IV When I went to see the patient he was sedated but is breathing heavily. Therefore, HPI is based mainly on ER physician and nursing staff. [] Past Medical History Medical History: Medical History (Last Reviewed 12/17/20 @ 18:04 by MARKO Graham) Nicotine dependence (Chronic) F17.200 Morbid obesity (Chronic) E66.01 HTN (hypertension) (Chronic) I10 SVT (supraventricular tachycardia) (Chronic) I47.1 Aortic root dilatation (Chronic) I77.810 ADD (attention deficit disorder) F98.8 Amnesia R41.3 Anxiety F41.9 Arthritis M19.90 Chronic low back pain M54.5, G89.29 Fatty liver K76.0 Gastric ulcer K25.9 Lumbar spondylolysis M43.06 Obstructive sleep apnea G47.33 PTSD (post-traumatic stress disorder) F43.10 RLS (restless legs syndrome) G25.81 Allergies cephalexin [From Keflex] Adverse Reaction (Verified 12/17/20 13:54) Vomiting divalproex sodium [From Depakote] Adverse Reaction (Verified 12/17/20 13:54) dizzy ketorolac [From Toradol] Adverse Reaction (Verified 12/17/20 13:54) Other twitch Opioids - Morphine Analogues Adverse Reaction (Verified 12/17/20 13:54) irritable topiramate Adverse Reaction (Verified 12/17/20 13:54) Unknown varenicline [From Chantix] Adverse Reaction (Verified 12/17/20 13:54) irritation zolpidem Adverse Reaction (Verified 12/17/20 13:54) sleepwalking Surgical History: Surgical History (Last Reviewed 12/17/20 @ 18:04 by Christine Harris NP-C) History of tonsillectomy Z90.89 - *Family History Maternal Family History: Family History (Last Reviewed 11/05/20 @ 00:[address] Aleksander Desir MD) Mother Diabetes Hypertension Heart disease Father Diabetes Hypertension Sister Myocardial infarction Paternal Family History: Family History (Last Reviewed 11/05/20 @ 00:[address] Aleksander Desir MD) Mother Diabetes Hypertension Heart disease Father Diabetes Hypertension Sister Myocardial infarction Objective: General: Sedated. Short of breath. HEENT: Atraumatic, PERRLA, EOMI, Normocephalic Oral: Snoring, no Gingival or Mucosal Lesions/ Ulcerations Neck: Supple, No JVD, Negative Carotid Bruits Lungs: Air entry diminished in bilateral lung bases. Bilateral wheezing and expiratory rhonchi Cardiovascular: Sinus tachycardia, normal S1, Normal S2, No murmurs Abdomen: Bowel Sounds Present, Soft, Non Tender, Non-Distended : No renal angle tenderness. No suprapubic tenderness. Extremities: Bilateral ankle edema, Capillary Refill Less than 3 Seconds Skin: No rashes, No breakdown Musculoskeletal: No Tenderness to Palpation of Joints or Extremities Neurological: Cranial nerves II-XII grossly intact, Deep Tendon Reflexes 2+/4 and Symmetrical, Neuro grossly intact Psych/Mental Status: Sedated. - Physical Exam Vitals/I&O's: Vital Signs Temp Pulse Resp BP Pulse Ox 97.8 F 110 H 24 H 194/134 H 92 12/17/20 18:23 12/17/20 18:38 12/17/20 18:38 12/17/20 18:38 12/17/20 18:38 Oxygen Flow Rate (L/min) 3 Oxygen Delivery Method Nasal Cannula Weight: 405 lb 13.936 oz Body Mass Index (BMI) 53.8 Intake and Output for Last 24 Hours 12/15/20 12/16/20 12/17/20 23:59 23:59 23:59 Intake Total 32.97 / 32.97 Output Total 1425 / 1425 Balance -1392.03 / -1392.03 Current Medications Acetaminophen (Acetaminophen 325 Mg Tablet) 650 mg PO Q6H PRN PRN PRN Reason: Pain Score 1-10/Temp > 100.7 F Albuterol Sulfate (Albuterol 2.5 Mg/3 Ml Vial.Neb.) 2.5 mg INHALATION Q2H PRN PRN PRN Reason: SHORTNESS OF BREATH Albuterol/Ipratropium (Ipratropium/Albuterol Sulfate 3 Ml Ampul.Neb) 3 ml INHALATION Q4H.RT UNA Azithromycin (Azithromycin 250 Mg Tablet) 500 mg PO Q24 [facility] Stop: 12/22/20 10:01 Docusate Sodium (Docusate Sodium 100 Mg Capsule) 100 mg PO BID PRN PRN PRN Reason: Constipation Enoxaparin Sodium (Enoxaparin 40 Mg/0.4 Ml Syringe) 40 mg SC BID [facility]NA Furosemide (Furosemide 40 Mg/4 Ml Vial) 40 mg IV BID@1000,1800 [facility] Guaifenesin (Guaifenesin 1,200 Mg Tablet) 1,200 mg PO BID UNA Hydralazine HCl (Hydralazine 20 Mg/Ml Vial) 10 mg IV Q4H PRN PRN Reason: SBP >160 Dexmedetomidine HCl 400 mcg/ (Sodium Chloride) 100 mls @ 23.013 mls/hr CONT INF .Q4H21M [facility]; Protocol Last Titration: 12/17/20 19:00 Dose: 0.4 mcg/kg/hr, 18.4 mls/hr Documented by: Sodium Chloride () 250 mls @ 15 mls/hr IV .[id number] PRN PRN Reason: Saline Flush Sodium Chloride () 250 mls @ 15 mls/hr IV .[id number] PRN PRN Reason: Additional IVPB Infusion Insulin Human Lispro (Insulin Lispro 100 Unit/Ml Insuln.Pen) 0 unit SC ACHS [facility]; Protocol Labetalol HCl (Labetalol (Prefilled) 20 Mg/4 Ml) 20 mg IV Q6H PRN PRN Reason: SBP GREATER THAN 180 Last Admin: 12/17/20 18:54 Dose: 20 mg Documented by: Methylprednisolone (Methylprednisolone 40 Mg/Ml Vial) 40 mg IV Q8 UNA Metoprolol Tartrate (Metoprolol Tartrate 50 Mg Tablet) 50 mg PO BID UNA Ondansetron HCl (Ondansetron 4 Mg/2 Ml Vial) 4 mg IV Q8H PRN PRN PRN Reason: NAUSEA/VOMITING Sodium Chloride (0.9% Saline Lock 10 Ml Syringe) 10 - 40 ml IV UD PRN PRN Reason: SALINE FLUSH Last Admin: 12/17/20 18:54 Dose: 10 ml Documented by: Assessment/Plan This patient was seen in conjunction with TOMÁS King. I have independently interviewed and examined the patient and reviewed pertinent history, examination findings, laboratory and plan of management. I have reviewed the note and agree with the documented findings with the few additional points. In brief, patient is admitted in ICU for shortness of breath, expiratory rhonchi, chest pain and hypertensive emergency. Patient BNP and troponin elevated. Cycle troponin. Continue Lasix 40 mg IV twice daily. Patient recently had last echo in October 2020 reported normal EF 55% with mild pulmonary hypertension, RVSP 46 mmHg with a stage II diastolic dysfunction suggestive of acute on chronic HFpEF. Patient might also have COPD exacerbation based on cigarette smoking, shortness of breath, obstructive sleep apnea. No PFT report in the record. ABG 7.3 /34 on 3 L of oxygen through nasal ca nnula suggestive of acute respiratory acidosis. Patient bicarb is elevated 33, baseline around 26. On a scheduled bronchodilator, IV Solu-Medrol and Zithromax. Hypertensive emergency: IV hydralazine and labetalol IV. Bipolar 2 disorder with history of chronic amphetamines use and dependence, with behavioral abnormality: Patient was agitation, restlessness, and received Ativan and ziprasidone. Based on previous record, patient is DNR CC arrest with no intubation. Rest of comorbidities as mentioned above. I have discussed my assessment with TOMÁS King and orders have been reviewed. Inpatient E&M: 20029 Init Hosp L3
[2020-12-17] MEDS: Labetalol (Prefilled) 20 MG/4 ML IV (18:54)
[2020-12-17] MEDS: 0.9% Saline Lock 10 ML Syringe IV (18:54)
[2020-12-17] MEDS: Losartan Potassium 50 MG Tablet PO (20:02)
[2020-12-17] MEDS: LORazepam 2 MG/ML Syringe 1 MG IV (20:39)
[2020-12-17] MEDS: hydrALAZINE 20 MG/ML Vial 10 MG IV (20:47)
[2020-12-17] MEDS: Haloperidol Lactate 5 MG/ML Vial IV (21:41)
--- NOTE | 2020-12-17 21:45 | NURSING ---
Pt was very restless, agitated and combative. brie Ugalde called, Dr Ramos at bedside to evaluate the patient at this time. At this time Dr Ramos instructed this RN to place the precedex at the max dose of 1.5mcg/kg/hr. Haldol 5mg was also given at this time along with 20 of lasix and the patient was placed in soft restraints and placed on BiPAP.
[2020-12-17] MEDS: Nitroglycerin Infusion 250 ML 3 MG CONT INF (21:47)
[2020-12-17] MEDS: Furosemide 20 MG/2 ML VIAL IV (21:50)
[2020-12-17] MEDS: Enoxaparin 40 MG/0.4 ML Syringe SC (22:00)
[2020-12-17] MEDS: Insulin Lispro 100 UNIT/ML INSULN.PEN SC (22:00)
[2020-12-17] MEDS: Ipratropium/Albuterol Sulfate 3 ML AMPUL.NEB INHALATION (22:26)
[2020-12-18] VITALS (39 sets, daily range): BP systolic 121–152; BP diastolic 80–116; PULSE 87–115; RESP 12–29; TEMP 36.3–37.1; O2SAT 90–100
[2020-12-18] MEDS: Dexmedetomidine 1,000 mcg in 0.9% NS 240 mL 69 MCG CONT INF ×7 (00:15→21:34)
[2020-12-18 01:18] LABS: Absolute Lymphocyte Count 0.63 X10^3/uL (0.83-4.51); Absolute Neutrophil Count 12.1 X10^3/uL (2.0-7.7); Basophil# 0.02 X10^3/uL; Basophil% 0.2 % (0-1); Hematocrit 48.9 % (40-54); Hemoglobin 15.2 g/dL (13.0-16.5); Lymphocyte # 0.63 X10^3/ul (4.0); Lymphocyte % 4.9 % (19-41); Mean Corp Hgb Conc 31.1 g/dL (32-36); Mean Corpuscular Hgb 25.6 pg (27.0-32.0); Mean Corpuscular Volume 82.5 fL (80-94); Mean Platelet Vol. 10.6 fl (6.2-12.0); Monocyte# 0.09 X10^3/uL; Monocyte% 0.7 % (0-10); NRBC Flagged by Analyzer 0 % (0-5); Neutrophil % 93.9 % (47-70); Platelet Count 268 K/mm3 (150-450); RBC Distribution Width CV 14.8 % (11.6-14.6); RBC Distribution Width SD 44.5 fl (35.1-43.9); Red Blood Count 5.93 M/mm3 (4.6-6.2); White Blood Count 12.9 K/mm3 (4.4-11.0)
[2020-12-18] MEDS: Haloperidol Lactate 5 MG/ML Vial IV ×2 (01:21→07:51)
[2020-12-18 01:55] LABS: Anion Gap 11 (5-15); BUN 19 mg/dL (7-18); BUN/Creat Ratio 12.7 RATIO (10-20); Calcium,Total 8.8 mg/dL (8.5-10.1); Chloride 102 mmol/L (98-107); EST Glomerular Filtration Rate 55 mL/min (>60); Est Glom Filt Rate - Afr Amer 67 mL/min (>60); Estimated Creatinine Clearance 73.29 ml/min; Glucose 299 mg/dL (74-106); Potassium 4.1 mmol/L (3.5-5.1); Sodium Level 136 mmol/L (136-145)
--- NOTE | 2020-12-18 02:57 | CPS ---
Pt.'s FiO2 increased to 40% due to oxygen needs
--- NOTE | 2020-12-18 03:05 | EKG12_ITS ---
Test Reason : EKG CHANGE Blood Pressure : / mmHG Vent. Rate : 099 BPM Atrial Rate : 099 BPM P-R Int : 186 ms QRS Dur : 122 ms QT Int : 398 ms P-R-T Axes : 028 -58 048 degrees QTc Int : 510 ms Normal sinus rhythm Left anterior fascicular block Nonspecific T wave abnormality Abnormal ECG When compared with ECG of 17-DEC-2020 13:56, MANUAL COMPARISON REQUIRED, DATA IS UNCONFIRMED Confirmed by DAYANARA ALLEN, TIMOTEO ([id number]), makeup editor NOEMY FRANCISCO ([id number]) on 12/19/2020 1:51:32 PM Referred By: NICOLE Confirmed By:TIMOTEO NICHOLE MD
--- NOTE | 2020-12-18 05:39 | CON.PCM_ITS ---
Reason for Consult Date of Consultation: 12/18/20 Reason for Consultation: Acute respiratory failure History of Present Illness: The patient is a 40-year-old male, with a history as outlined below, who presented to the emergency department on December 17 with complaints of shortness of breath and chest discomfort. The patient had actually been evaluated earlier in the day on December 17 in the emergency department due to similar complaints, only to become extremely agitated and abusive with staff. The patient subsequently signed out AGAINST MEDICAL ADVICE only to return to the emergency department a short time later. The patient was recently admitted to the hospital in October with acute decompensated heart failure. The patient also signed out AGAINST MEDICAL ADVICE during that hospitalization as well. On presentation to the emergency department, the patient was noted to be afebrile but was significantly hypertensive with a blood pressure of 229 systolic. The patient was also tachycardic and tachypneic. Laboratory evaluation revealed a white blood cell count of 11,000. Creatinine was noted to be 0.80. Troponin was mildly elevated to 0.049. BNP was only noted to be 250. Toxicology screen was positive for amphetamines and methamphetamine. Chest x- ray was suboptimal with possible basilar atelectasis. The patient once again became agitated and combative in the emergency department. He was treated with Geodon and placed on a Precedex drip. Surface echocardiogram from October 2020 revealed moderate concentric LVH with an ejection fraction of 55% and stage II diastolic dysfunction. Pulmonary artery systolic pressure was estimated to be 46 mmHg. Past Medical History Past Medical History (Chronic Problems): Chronic Problems (Last Reviewed 12/17/20 @ 18:04 by Christine Harris NP-Gisselle) Obstructive sleep apnea (Chronic) Bipolar II disorder (Chronic) Methamphetamine abuse (Chronic) Nicotine dependence (Chronic) Morbid obesity (Chronic) Rapid palpitations (Chronic) HTN (hypertension) (Chronic) SVT (supraventricular tachycardia) (Chronic) Aortic root dilatation (Chronic) Medical History: Medical History (Last Reviewed 12/17/20 @ 18:04 by Christine Harris NP-C) Nicotine dependence (Chronic) F17.200 Morbid obesity (Chronic) E66.01 HTN (hypertension) (Chronic) I10 SVT (supraventricular tachycardia) (Chronic) I47.1 Aortic root dilatation (Chronic) I77.810 ADD (attention deficit disorder) F98.8 Amnesia R41.3 Anxiety F41.9 Arthritis M19.90 Chronic low back pain M54.5, G89.29 Fatty liver K76.0 Gastric ulcer K25.9 Lumbar spondylolysis M43.06 Obstructive sleep apnea G47.33 PTSD (post-traumatic stress disorder) F43.10 RLS (restless legs syndrome) G25.81 Allergies cephalexin [From Keflex] Adverse Reaction (Verified 12/17/20 13:54) Vomiting divalproex sodium [From Depakote] Adverse Reaction (Verified 12/17/20 13:54) dizzy ketorolac [From Toradol] Adverse Reaction (Verified 12/17/20 13:54) Other twitch Opioids - Morphine Analogues Adverse Reaction (Verified 12/17/20 13:54) irritable topiramate Adverse Reaction (Verified 12/17/20 13:54) Unknown varenicline [From Chantix] Adverse Reaction (Verified 12/17/20 13:54) irritation zolpidem Adverse Reaction (Verified 12/17/20 13:54) sleepwalking Home Medications: Ambulatory Orders Medication Instructions Recorded Sumatriptan Succinate [Imitrex] 100 mg PO .X1 PRN 06/21/18 Metoprolol Tartrate [Lopressor 50 mg PO BID 09/13/19 (Beta Hailey)] Gabapentin 600 mg PO BID 09/29/19 Surgical History: Surgical History (Last Reviewed 12/17/20 @ 18:04 by Christine Harris, EARTH AUGER OPERATOR-C) History of tonsillectomy Z90.89 Surgical History: tonsillectomy Psychiatric History: Bipolar Smoking Status: Current every day smoker Drugs: - - Meth amphetamines, last dose 2 days ago - *Family History Maternal Family History: Family History (Last Reviewed 11/05/20 @ 00:[address] Aleksander Desir MD) Mother Diabetes Hypertension Heart disease Father Diabetes Hypertension Sister Myocardial infarction History Items: - - mother had heart attack 60 Paternal Family History: Family History (Last Reviewed 11/05/20 @ 00:[address] Aleksander Desir MD) Mother Diabetes Hypertension Heart disease Father Diabetes Hypertension Sister Myocardial infarction History Items: - - father had heart disease in his late 30's Review of Systems Unable to obtain accurate/complete ROS d/t: Due to degree of encephalopathy Patient Problems: Active and Suspected Problems (Last Reviewed 12/17/20 @ 18:04 by MARKO Graham) Heart failure with preserved ejection fraction (Acute) Objective: The patient's most recent lab work, culture data and imaging studies have all been personally reviewed. - Physical Exam Vitals/I&O's: Vital Signs Temp Pulse Resp BP Pulse Ox 98.7 F 93 22 H 128/87 H 90 12/18/20 00:02 12/18/20 05:00 12/18/20 05:00 12/18/20 05:00 12/18/20 05:00 Oxygen Flow Rate (L/min) 5 Oxygen Delivery Method Bi-pap Weight: 405 lb 13.936 oz Body Mass Index (BMI) 53.8 Intake and Output for Last 24 Hours 12/16/20 12/17/20 12/18/20 23:59 23:59 23:59 Intake Total 464.92 / 533.92 410.50 / 410.50 Output Total 3225 / 3225 Balance -2760.08 / -2691.08 410.50 / 410.50 General: No apparent distress, Lethargic, - - BiPAP in place HEENT: Atraumatic, Normocephalic Oral: No Gingival or Mucosal Lesions/ Ulcerations Neck: Supple, No Nodes, Trachea Midline Lungs: Diminished, Rales, Tachypneic Cardiovascular: Normal S1, Normal S2, Tachycardic Abdomen: Bowel Sounds Present, Soft, Non Tender, Obese Extremities: No clubbing, No cyanosis Skin: No breakdown Musculoskeletal: No Tenderness to Palpation of Joints or Extremities Lymphatic: No Cervical, Supraclavicular, or Inguinal Adenopathy Neurological: - - No focal neurological deficits. Psych/Mental Status: - - The patient is quite somnolent. Labs (Last 48 Hours) 12/17/20 12/17/20 12/18/20 19:35 22:17 01:12 WBC 12.9 H RBC 5.93 Hgb 15.2 Hct 48.9 MCV 82.5 MCH 25.6 L MCHC 31.1 L RDW Std Deviation 44.5 H RDW Coeff of Funmilayo 14.8 H Plt Count 268 MPV 10.6 Immature Gran % (Auto) 0.300 Neut % (Auto) 93.9 H Lymph % (Auto) 4.9 L Barnes % (Auto) 0.7 Eos % (Auto) 0.0 Baso % (Auto) 0.2 Absolute Neuts (auto) 12.1 H Absolute Lymphs (auto) 0.63 L Nucleated RBC % 0 Sodium Potassium Chloride Carbon Dioxide Anion Gap BUN Creatinine Estim Creat Clear Calc Est GFR (MDRD) Af Amer Est GFR (MDRD) Non-Af BUN/Creatinine Ratio Glucose Calcium Troponin I 0.049 H 0.042 12/18/20 12/18/20 12/18/20 01:12 01:12 01:25 WBC RBC Hgb Hct MCV MCH MCHC RDW Std Deviation RDW Coeff of Funmilayo Plt Count MPV Immature Gran % (Auto) Neut % (Auto) Lymph % (Auto) Barnes % (Auto) Eos % (Auto) Baso % (Auto) Absolute Neuts (auto) Absolute Lymphs (auto) Nucleated RBC % Sodium Cancelled 136 Potassium Cancelled 4.1 Chloride Cancelled 102 Carbon Dioxide Cancelled 23.0 Anion Gap Cancelled 11 BUN Cancelled 19 H Creatinine Cancelled 1.50 H Estim Creat Clear Calc Cancelled 73.29 Est GFR (MDRD) Af Amer Cancelled 67 Est GFR (MDRD) Non-Af Cancelled 55 L BUN/Creatinine Ratio Cancelled 12.7 Glucose Cancelled 299 H Calcium Cancelled 8.8 Troponin I Cancelled 0.032 Clinical Impression(s) from Imaging Studies Chest X-Ray 12/17/20 16:30 IMPRESSION: Poor inspiration with some bibasilar atelectasis. Electronically Signed: Puneet Perez MD at 16:48 EDT Tel , Service support , Current Medications Acetaminophen (Acetaminophen 325 Mg Tablet) 650 mg PO Q6H PRN PRN PRN Reason: Pain Score 1-10/Temp > 100.7 F Albuterol Sulfate (Albuterol 2.5 Mg/3 Ml Vial.Neb.) 2.5 mg INHALATION Q2H PRN PRN PRN Reason: SHORTNESS OF BREATH Albuterol/Ipratropium (Ipratropium/Albuterol Sulfate 3 Ml Ampul.Neb) 3 ml INHALATION Q4H.RT [facility] Last Admin: 12/17/20 22:26 Dose: 3 ml Documented by: Azithromycin (Azithromycin 250 Mg Tablet) 500 mg PO Q24 [facility] Stop: 12/20/20 10:01 Docusate Sodium (Docusate Sodium 100 Mg Capsule) 100 mg PO BID PRN PRN PRN Reason: Constipation Enoxaparin Sodium (Enoxaparin 40 Mg/0.4 Ml Syringe) 40 mg SC BID [facility] Last Admin: 12/17/20 22:00 Dose: 40 mg Documented by: Furosemide (Furosemide 40 Mg/4 Ml Vial) 40 mg IV BID@1000,1800 [facility] Guaifenesin (Guaifenesin 1,200 Mg Tablet) 1,200 mg PO BID [facility] Last Admin: 12/17/20 21:24 Dose: Not Given Documented by: Hydralazine HCl (Hydralazine 20 Mg/Ml Vial) 10 mg IV Q4H PRN PRN Reason: SBP >160 Last Admin: 12/17/20 20:47 Dose: 10 mg Documented by: Sodium Chloride () 250 mls @ 15 mls/hr IV .[id number] PRN PRN Reason: Saline Flush Sodium Chloride () 250 mls @ 15 mls/hr IV .[id number] PRN PRN Reason: Additional IVPB Infusion Nitroglycerin/Dextrose () 250 mls @ 3 mls/hr CONT INF .[id number] [facility]; Protocol Last Titration: 12/17/20 23:15 Dose: 0 mcg/min, 0 mls/hr Documented by: Dexmedetomidine HCl 1,000 mcg/ (Sodium Chloride) 250 mls @ 23.013 mls/hr CONT INF .[id number] [facility]; Protocol Last Titration: 12/18/20 05:00 Dose: 1.5 mcg/kg/hr, 69 mls/hr Documented by: Insulin Human Lispro (Insulin Lispro 100 Unit/Ml Insuln.Pen) 0 unit SC ACHS [facility]; Protocol Last Admin: 12/17/20 22:00 Dose: 4 u Documented by: Labetalol HCl (Labetalol (Prefilled) 20 Mg/4 Ml) 20 mg IV Q6H PRN PRN Reason: SBP GREATER THAN 180 Last Admin: 12/17/20 18:54 Dose: 20 mg Documented by: Losartan Potassium (Losartan Potassium 50 Mg Tablet) 50 mg PO DAILY [facility] Last Admin: 12/17/20 20:02 Dose: 50 mg Documented by: Methylprednisolone (Methylprednisolone 40 Mg/Ml Vial) 40 mg IV Q8 [facility] Last Admin: 12/18/20 05:33 Dose: 40 mg Documented by: Metoprolol Tartrate (Metoprolol Tartrate 50 Mg Tablet) 50 mg PO BID [facility] Last Admin: 12/17/20 21:24 Dose: Not Given Documented by: Nicotine (Nicotine 21 Mg Patch) 21 mg TD DAILY [facility] Ondansetron HCl (Ondansetron 4 Mg/2 Ml Vial) 4 mg IV Q8H PRN PRN PRN Reason: NAUSEA/VOMITING Sodium Chloride (0.9% Saline Lock 10 Ml Syringe) 10 - 40 ml IV UD PRN PRN Reason: SALINE FLUSH Last Admin: 12/17/20 18:54 Dose: 10 ml Documented by: Assessment/Plan Active and Suspected Problems (Last Reviewed 12/17/20 @ 18:04 by Christine Harris, EARTH AUGER OPERATOR-C) Heart failure with preserved ejection fraction (Acute) RECOMMENDATIONS: 1. Obtain repeat arterial blood gas. 2. Recheck BNP. 3. Hold Lasix given increasing creatinine. 4. Wean from BiPAP therapy. Continue supplemental oxygen to maintain saturations at or above 90%. 5. Aggressive blood pressure control. 6. Continue Precedex and wean as tolerated. Continue as needed Haldol. IMPRESSIONS: 1. Acute hypoxemic respiratory failure Likely multifactorial in etiology. The patient does have a history of heart failure with preserved ejection fraction and I strongly suspect that his p rofound hypertension on presentation may have contributed to a component of flash pulmonary edema. The patient will be continued on supplemental oxygen and noninvasive positive pressure ventilatory support as needed to maintain saturations at or above 90%. We will plan to decrease dosing of Lasix, given increase in creatinine. The patient's CODE STATUS was once again confirmed to be DNR CCA without intubation. 2. Hypertensive urgency Suspect that elevated pressures at presentation may have been secondary to recent methamphetamine use. Plan to continue current medication regimen. 3. Acute kidney injury Likely prerenal in etiology and related to a component of overdiuresis. Frequency of diuretics have been decreased. Continue to monitor urine output and repeat BMP tomorrow morning. No current indication for renal replacement therapy. 4. Encephalopathy The patient does have underlying psychiatric/behavioral issues combined with a history of substance dependency. He will be continued on Precedex and as needed Haldol for now. 5. History of bipolar disorder/PTSD/methamphetamine use/tobacco dependency/questionable obstructive sleep apnea Complicates care, management, recovery and prognosis. Continue supportive measures as noted above. Continue nicotine replacement therapy. This note was generated with [email or web address] dictation software. It may contain incorrect words, spelling, and punctuation that were not noted in checking the note before signing. Inpatient E&M: 33689 Init Hosp L3
[2020-12-18 07:31] LABS: Bedside Glucose 213 mg/dL (70-110)
[2020-12-18] MEDS: Furosemide 40 MG/4 ML Vial IV (07:59)
[2020-12-18] MEDS: Insulin Lispro 100 UNIT/ML INSULN.PEN SC ×4 (07:59→21:47)
[2020-12-18 08:04] LABS: Amphetamine Urine VISTA POSITIVE (<1000 ng/mL); Barbiturate Urine VISTA NEGATIVE (< 200 ng/mL); Benzodiazepine Urine VISTA NEGATIVE (< 200 ng/mL); Cocaine Urine VISTA NEGATIVE (< 300 ng/mL); Ecstacy Urine VISTA POSITIVE (< 500 ng/mL); Methadone Urine VISTA NEGATIVE (< 300 ng/mL); PCP Urine VISTA NEGATIVE (< 25 ng/mL); THC Urine VISTA NEGATIVE (< 50 ng/mL); Vista UDS pH Range 6
[2020-12-18 08:11] LABS: Bedside Glucose 252 mg/dL (70-110)
[2020-12-18 08:13] LABS: BNP,B-Type NATRIURETIC PEPTIDE 250.2 pg/mL (0-100)
[2020-12-18 09:26] LABS: Allen Test Positive; Base Excess 4 mmol/L (-2 to +2); Bicarbonate 28.8 mmol/L (22-26); Blood Gas Specimen Type ART; FI02 40; O2 Delivery Device BiPAP; PO2 86 mmHG (75-100); SITE L Radial; SO2 97 % (95-99); Total Carbon Dioxide 30 mmol/L; pCO2 43.9 mmHg (35-45); pH 7.43 (7.35-7.45)
[2020-12-18 09:42] LABS: D-Dimer Quantitative (DVT/PE) 0.55 FEU/ug/m (0.27-0.49)
[2020-12-18 09:46] LABS: BNP,B-Type NATRIURETIC PEPTIDE 439.9 pg/mL (0-100)
[2020-12-18] MEDS: Enoxaparin 40 MG/0.4 ML Syringe SC ×2 (09:46→21:46)
--- NOTE | 2020-12-18 09:54 | CASEMGMT ---
SW participated in ICU rounds. Pt on bipap at present. SW will follow up w/pt regarding mental health and substance abuse when appropriate. Ludmila Mcmahon
[2020-12-18 12:20] LABS: Bedside Glucose 239 mg/dL (70-110)
--- NOTE | 2020-12-18 12:53 | CASEMGMT ---
SHAUNA GALLEGOS called and left message for PCP to return call regarding finding additional family contact information. SHAUNA GALLEGOS received return phone call from PCP Dr Marin's office. Patient has no emergency contact information on file at Dr. Marin's office. Patient did attend tele health call on 11/13/20.
--- NOTE | 2020-12-18 13:57 | CASEMGMT ---
Palliative screening tool completed due to Lace/Strata 3. Patient does not meet criteria for palliative at this time.
[2020-12-18 16:41] LABS: Bedside Glucose 179 mg/dL (70-110)
[2020-12-18] MEDS: Metoprolol Tartrate 5 MG/5 ML Vial IV ×2 (16:48→23:25)
[2020-12-18] MEDS: 0.9% Saline Lock 10 ML Syringe IV ×2 (17:02→23:27)
[2020-12-18] MEDS: Haloperidol Lactate 5 MG/ML Vial 2.5 MG IV ×2 (17:02→23:25)
--- NOTE | 2020-12-18 17:17 | PCM.PN.HOSP ---
Patient Problems: Active and Suspected Problems (Last Reviewed 12/17/20 @ 18:04 by Christine Harris, COLLEGE TEACHER-C) Heart failure with preserved ejection fraction (Acute) Subjective: Patient is currently lying in bed maxed out on Precedex at 1.5. Has had intermittent agitation but is now tolerating his BiPAP. Per nursing Kirkjoe has worked well in conjunction with Precedex for sedation. Vitals/I&O's: Vital Signs Temp Pulse Resp BP Pulse Ox 97.8 F 108 H 15 152/102 H 97 12/18/20 16:00 12/18/20 17:00 12/18/20 17:00 12/18/20 17:00 12/18/20 17:00 Oxygen Flow Rate (L/min) 5 Oxygen Delivery Method Nasal Cannula Weight: 184.1 kg Body Mass Index (BMI) 53.8 Intake and Output for Last 24 Hours 12/16/20 12/17/20 12/18/20 23:59 23:59 23:59 Intake Total 464.92 / 533.92 1156.95 / 1156.95 Output Total 3225 / 3225 1800 / 1800 Balance -2760.08 / -2691.08 -643.05 / -643.05 General: - - Sedated obese middle-aged white male lying in bed, no current agitation, calm, BiPAP in place HEENT: Atraumatic, Normocephalic, EAC Clear, - - Pupils are constricted and equal bilaterally Oral: No Gingival or Mucosal Lesions/ Ulcerations, Dry Mucosa Neck: Supple, Negative Carotid Bruits, No Nodes, Trachea Midline, Thyroid Normal Size and Texture Lungs: No rhonchi, No wheeze, Diminished, Rales - Bilateral bases Cardiovascular: Regular rate, Regular Rhythm, Normal S1, Normal S2, No murmurs, No Ectopic Activity, No rub noted, No Gallop Abdomen: Bowel Sounds Present, Soft, Non Tender, Non-Distended, Obese Extremities: No clubbing, No cyanosis, No edema, Capillary Refill Less than 3 Seconds, Peripheral Pulses Normal Skin: No rashes, No breakdown, - - Multiple tattoos Musculoskeletal: No Tenderness to Palpation of Joints or Extremities, No Muscle Wasting Lymphatic: No Cervical, Supraclavicular, or Inguinal Adenopathy Neurological: - - Reflexes normal but unable to do full neuro exam given current sedation Psych/Mental Status: - - Able to address with sedation, currently calm Laboratory Results 12/17/20 19:35: Troponin I 0.049 H 12/17/20 19:54: POC Glucose 213 H 12/17/20 22:17: Troponin I 0.042 12/18/20 01:12: WBC 12.9 H, RBC 5.93, Hgb 15.2, Hct 48.9, MCV 82.5, MCH 25.6 L, MCHC 31.1 L, RDW Std Deviation 44.5 H, RDW Coeff of Funmilayo 14.8 H, Plt Count 268, MPV 10.6, Immature Gran % (Auto) 0.300, Neut % (Auto) 93.9 H, Lymph % (Auto) 4.9 L, Beckham % (Auto) 0.7, Eos % (Auto) 0.0, Baso % (Auto) 0.2, Absolute Neuts (auto) 12.1 H, Absolute Lymphs (auto) 0.63 L, Nucleated RBC % 0 12/18/20 01:12: Sodium Cancelled, Potassium Cancelled, Chloride Cancelled, Carbon Dioxide Cancelled, Anion Gap Cancelled, BUN Cancelled, Creatinine Cancelled, Estim Creat Clear Calc Cancelled, Est GFR (MDRD) Af Amer Cancelled, Est GFR (MDRD) Non-Af Cancelled, BUN/Creatinine Ratio Cancelled, Glucose Cancelled, Calcium Cancelled 12/18/20 01:12: Troponin I Cancelled 12/18/20 01:12: B-Natriuretic Peptide 250.2 H 12/18/20 01:25: Sodium 136, Potassium 4.1, Chloride 102, Carbon Dioxide 23.0, Anion Gap 11, BUN 19 H, Creatinine 1.50 H, Estim Creat Clear Calc 73.29, Est GFR (MDRD) Af Amer 67, Est GFR (MDRD) Non-Af 55 L, BUN/Creatinine Ratio 12.7, Glucose 299 H, Calcium 8.8, Troponin I 0.032 12/18/20 07:40: Urine Opiates Screen NEGATIVE, Urine Methadone Screen NEGATIVE, Ur Barbiturates Screen NEGATIVE, Ur Phencyclidine Scrn NEGATIVE, Ur Amphetamines Screen POSITIVE H, U Methamphetamin-MDMA POSITIVE H, U Benzodiazepines Scrn NEGATIVE, Urine Cocaine Screen NEGATIVE, U Cannabinoids Screen NEGATIVE, Ur Drug Screen Comment 12/18/20 07:44: POC Glucose 252 H 12/18/20 09:15: D-Dimer Quant (PE/DVT) 0.55 H* 12/18/20 09:22: Specimen Type ART, Sample Site L Radial, pH 7.43, Bicarbonate Actual 28.8 H, Total CO2 30, Base Excess 4 H, O2 Saturation 97, O2 % 40, ABG pCO2 43.9, ABG pO2 86, Riki Test Positive, O2 Delivery Device BiPAP, Clinical Comments 13/07 40% 12/18/20 09:25: B-Natriuretic Peptide 439.9 H 12/18/20 12:12: POC Glucose 239 H 12/18/20 16:36: POC Glucose 179 H Current Medications Acetaminophen (Acetaminophen 325 Mg Tablet) 650 mg PO Q6H PRN PRN PRN Reason: Pain Score 1-10/Temp > 100.7 F Albuterol Sulfate (Albuterol 2.5 Mg/3 Ml Vial.Neb.) 2.5 mg INHALATION Q2H PRN PRN PRN Reason: SHORTNESS OF BREATH Albuterol/Ipratropium (Ipratropium/Albuterol Sulfate 3 Ml Ampul.Neb) 3 ml INHALATION Q4H.RT [facility] Last Admin: 12/17/20 22:26 Dose: 3 ml Documented by: Docusate Sodium (Docusate Sodium 100 Mg Capsule) 100 mg PO BID PRN PRN PRN Reason: Constipation Enalaprilat (Enalaprilat 1.25 Mg/Ml Vial) 0.625 mg IV Q6 PRN PRN Reason: SBP > 160 Enoxaparin Sodium (Enoxaparin 40 Mg/0.4 Ml Syringe) 40 mg SC BID [facility] Last Admin: 12/18/20 09:46 Dose: 40 mg Documented by: Guaifenesin (Guaifenesin 1,200 Mg Tablet) 1,200 mg PO BID [facility] Last Admin: 12/18/20 09:15 Dose: Not Given Documented by: Haloperidol Lactate (Haloperidol Lactate 5 Mg/Ml Vial) 2.5 mg IV Q6H PRN PRN PRN Reason: agitation Last Admin: 12/18/20 17:02 Dose: 2.5 mg Documented by: Hydralazine HCl (Hydralazine 20 Mg/Ml Vial) 10 mg IV Q4H PRN PRN Reason: SBP >160 Last Admin: 12/17/20 20:47 Dose: 10 mg Documented by: Sodium Chloride () 250 mls @ 15 mls/hr IV .[id number] PRN PRN Reason: Saline Flush Sodium Chloride () 250 mls @ 15 mls/hr IV .[id number] PRN PRN Reason: Additional IVPB Infusion Nitroglycerin/Dextrose () 250 mls @ 3 mls/hr CONT INF .[id number] [facility]; Protocol Last Titration: 12/17/20 23:15 Dose: 0 mcg/min, 0 mls/hr Documented by: Dexmedetomidine HCl 1,000 mcg/ (Sodium Chloride) 250 mls @ 23.013 mls/hr CONT INF .[id number] [facility]; Protocol Last Titration: 12/18/20 16:00 Dose: 1.5 mcg/kg/hr, 69 mls/hr Documented by: Insulin Human Lispro (Insulin Lispro 100 Unit/Ml [facility]ul[facility].Pen) [facility]; Protocol Last Admin: 12/18/20 16:48 Dose: 2 u Documented by: Labetalol HCl (Labetalol (Prefilled) 20 Mg/4 Ml) 20 mg IV Q6H PRN PRN Reason: SBP GREATER THAN 180 Last Admin: 12/17/20 18:54 Dose: 20 mg Documented by: Metoprolol Tartrate (Metoprolol Tartrate 5 Mg/5 Ml Vial) 5 mg IV Q6 [facility] Last Admin: 12/18/20 16:48 Dose: 5 mg Documented by: Nicotine (Nicotine 21 Mg Patch) 21 mg TD DAILY [facility] Last Admin: 12/18/20 09:47 Dose: 21 mg Documented by: Ondansetron HCl (Ondansetron 4 Mg/2 Ml Vial) 4 mg IV Q8H PRN PRN PRN Reason: NAUSEA/VOMITING Sodium Chloride (0.9% Saline Lock 10 Ml Syringe) 10 - 40 ml IV UD PRN PRN Reason: SALINE FLUSH Last Admin: 12/18/20 17:02 Dose: 40 ml Documented by: STROKE Vital Signs/Narrative: Vital Signs Temp Pulse Resp BP Pulse Ox 12/18/20 17:00 108 H 15 152/102 H 97 12/18/20 16:48 115 H 12/18/20 16:00 97.8 F 97 24 H 131/93 H 96 12/18/20 15:13 100 12/18/20 15:00 98 26 H 144/96 H 94 12/18/20 14:37 95 12/18/20 14:00 107 H 24 H 122/89 H 96 Medical Necessity - Tobacco Use Smoking Status: Current every day smoker Assessment/Plan All Active Problems (Last Reviewed 12/17/20 @ 18:04 by Christine Harris NP-C) Heart failure with preserved ejection fraction (Acute) Acute hypoxic respiratory failure secondary to decompensated HFpEF/ARACELY/OHS/PAH -Presented to the emergency department earlier yesterday but left AMA--> that time he is very agitated and verbally abusive to the staff -He represented when he was convinced by a friend to return and have his issues addressed -I suspect his respiratory failure is multifactorial and the result of continued methamphetamine use with hypertension causing a stiff ventricle and recurrent heart failure as well as untreated sleep apnea, obesity, COPD, and pulmonary artery hypertension -Current need for antibiotics -As needed IV diuresis but will hold for now with increasing creatinine -Continue BiPAP 13/07 with 40% FiO2 but wean as able to nasal cannula versus high flow nasal cannula -Oxygen saturations greater than 90% -Covid test was negative -Patient had a recent echo done in 2 2020 that showed an EF of 55% pulmonary artery systolic pressures of 44 mmHg indicating mild pulmonary artery hypertension, moderate concentric LVH with stage II diastolic dysfunction -No need for repeat echo at this time -Control blood pressure -Continue Precedex n.p.o. medications changed to IV for the time being -N.p.o. until mental status is improved -BNP was markedly elevated at 439.9 -New nitro drip -ABG from this morning was reviewed and is acceptable at this time -Appreciate critical care input Acute toxic/metabolic encephalopathy -Continue Precedex and wean as able -As needed Haldol -Suspect multifactorial BRIJESH -Continue diuresis -Repeat in a.m. Hypertension -Convert p.o. metoprolol to metoprolol 5 mg every 6 hours -Convert lisinopril to enalaprilat 0.625 every 6 hours as needed for systolic blood pressure greater than 160 -Continue nitro drip Hyperglycemia -Continue SSI every 6 hours -Check A1c in a.m. -Patient is n.p.o. at this time Morbid obesity -Recommend weight loss -Complicates overall prognosis and management Methamphetamine abuse -Tox screen was positive for methamphetamines -I suspect this is contributing to his recurrent issues with heart failure Tobacco abuse -Suggest cessation -Nicotine patch as needed History of bipolar disorder/PTSD -Need to consider psych consultation when patient's mental status allows DVT prophylaxis -Continue enoxaparin 40 mg twice daily CODE STATUS -DNR CCA no intubation per discussion with admitting physician in the emergency department Inpatient E&M: [id number] [facility] Hosp L3
[2020-12-18] MEDS: Ipratropium/Albuterol Sulfate 3 ML AMPUL.NEB INHALATION ×2 (20:17→23:45)
[2020-12-18] MEDS: guaiFENesin 1,200 MG Tablet 1200 MG PO (21:47)
[2020-12-18 22:00] LABS: Bedside Glucose 157 mg/dL (70-110)
[2020-12-19] VITALS (37 sets, daily range): BP systolic 111–174; BP diastolic 71–144; PULSE 78–113; RESP 17–32; TEMP 36.3–36.8; O2SAT 86–100
[2020-12-19] MEDS: Dexmedetomidine 1,000 mcg in 0.9% NS 240 mL 69 MCG CONT INF ×7 (01:22→23:38)
[2020-12-19] MEDS: LORazepam 2 MG/ML Syringe 1 MG IV ×2 (01:39→17:31)
[2020-12-19] MEDS: Ipratropium/Albuterol Sulfate 3 ML AMPUL.NEB INHALATION ×5 (03:25→23:21)
[2020-12-19 04:18] LABS: Absolute Lymphocyte Count 2.54 X10^3/uL (0.83-4.51); Absolute Neutrophil Count 11.9 X10^3/uL (2.0-7.7); Basophil# 0.03 X10^3/uL; Basophil% 0.2 % (0-1); Hematocrit 49.9 % (40-54); Hemoglobin 15.3 g/dL (13.0-16.5); Lymphocyte # 2.54 X10^3/ul (4.0); Lymphocyte % 16.4 % (19-41); Mean Corp Hgb Conc 30.7 g/dL (32-36); Mean Corpuscular Hgb 25.3 pg (27.0-32.0); Mean Corpuscular Volume 82.6 fL (80-94); Mean Platelet Vol. 10.6 fl (6.2-12.0); Monocyte# 0.97 X10^3/uL; Monocyte% 6.3 % (0-10); NRBC Flagged by Analyzer 0 % (0-5); Neutrophil # 11.85 X10^3/uL (2.7-7.7); Neutrophil % 76.5 % (47-70); Platelet Count 266 K/mm3 (150-450); RBC Distribution Width CV 15.2 % (11.6-14.6); RBC Distribution Width SD 45.1 fl (35.1-43.9); Red Blood Count 6.04 M/mm3 (4.6-6.2); White Blood Count 15.5 K/mm3 (4.4-11.0)
[2020-12-19 04:32] LABS: Anion Gap 6 (5-15); BUN 35 mg/dL (7-18); BUN/Creat Ratio 34.3 RATIO (10-20); Calcium,Total 8.4 mg/dL (8.5-10.1); Chloride 106 mmol/L (98-107); Creatinine, Serum 1.02 mg/dL (0.70-1.30); EST Glomerular Filtration Rate 87 mL/min (>60); Est Glom Filt Rate - Afr Amer 105 mL/min (>60); Estimated Creatinine Clearance 107.78 ml/min; Glucose 165 mg/dL (74-106); Potassium 4.5 mmol/L (3.5-5.1); Sodium Level 139 mmol/L (136-145)
[2020-12-19] MEDS: Haloperidol Lactate 5 MG/ML Vial IM (05:30)
--- NOTE | 2020-12-19 05:36 | PCM.PN.INT ---
Subjective: The patient was seen and examined at the bedside this morning. Events from the last 24 hours have been reviewed. The patient is currently afebrile, hemodynamically stable and maintaining appropriate oxygen saturations on 5 L/min via nasal cannula. The patient became agitated and combative this morning. Vanesa lee was called. The patient was given an IM dose of Haldol with subsequent improvement in his agitation. White blood cell count is up to 15,000 this morning. Creatinine has improved. However, the patient has refused to wear his BiPAP and has also been refusing breathing treatments as well. Objective: The patient's most recent lab work, culture data and imaging studies have all been personally reviewed. Surface echocardiogram from October 2020 revealed moderate concentric LVH with an ejection fraction of 55% and stage II diastolic dysfunction. Pulmonary artery systolic pressure was estimated to be 46 mmHg. General: No apparent distress, Lethargic HEENT: Atraumatic, Normocephalic Oral: Dry Mucosa Neck: Supple, No Nodes, Trachea Midline Lungs: Diminished, - - Wheezes present on forced expiration Cardiovascular: Normal S1, Normal S2, Tachycardic Abdomen: Bowel Sounds Present, Soft, Non Tender, Obese Extremities: No clubbing, No cyanosis, No edema Musculoskeletal: No Muscle Wasting Lymphatic: No Cervical, Supraclavicular, or Inguinal Adenopathy Neurological: - - No focal neurological deficits. Psych/Mental Status: - - Intermittently agitated and restless Vital Signs Temp Pulse Resp BP Pulse Ox 98.2 F 104 H 24 H 134/71 H 98 12/19/20 04:00 12/19/20 04:00 12/19/20 04:00 12/19/20 04:00 12/19/20 04:00 Oxygen Flow Rate (L/min) 5 Oxygen Delivery Method Nasal Cannula Weight: 405 lb 13.936 oz Body Mass Index (BMI) 53.8 Intake and Output for Last 24 Hours 12/17/20 12/18/20 12/19/20 23:59 23:59 23:59 Intake Total 464.92 / 533.92 2384.65 / 2453.65 592.6 / 592.6 Output Total 3225 / 3225 2375 / 2375 150 / 150 Balance -2760.08 / -2691.08 9.65 / 78.65 442.6 / 442.6 Labs (Last 48 Hours) 12/17/20 12/17/20 12/17/20 19:35 19:54 22:17 WBC RBC Hgb Hct MCV MCH MCHC RDW Std Deviation RDW Coeff of Funmilayo Plt Count MPV Immature Gran % (Auto) Neut % (Auto) Lymph % (Auto) Morgan % (Auto) Eos % (Auto) Baso % (Auto) Absolute Neuts (auto) Absolute Lymphs (auto) Nucleated RBC % D-Dimer Quant (PE/DVT) Specimen Type Sample Site pH Bicarbonate Actual Total CO2 Base Excess O2 Saturation O2 % ABG pCO2 ABG pO2 Riki Test O2 Delivery Device Clinical Comments Sodium Potassium Chloride Carbon Dioxide Anion Gap BUN Creatinine Estim Creat Clear Calc Est GFR (MDRD) Af Amer Est GFR (MDRD) Non-Af BUN/Creatinine Ratio Glucose Calcium Troponin I 0.049 H 0.042 B-Natriuretic Peptide Urine Opiates Screen Urine Methadone Screen Ur Barbiturates Screen Ur Phencyclidine Scrn Ur Amphetamines Screen U Methamphetamin-MDMA U Benzodiazepines Scrn Urine Cocaine Screen U Cannabinoids Screen Ur Drug Screen Comment POC Glucose 213 H 12/18/20 12/18/20 12/18/20 01:12 01:12 01:12 WBC 12.9 H RBC 5.93 Hgb 15.2 Hct 48.9 MCV 82.5 MCH 25.6 L MCHC 31.1 L RDW Std Deviation 44.5 H RDW Coeff of Funmilayo 14.8 H Plt Count 268 MPV 10.6 Immature Gran % (Auto) 0.300 Neut % (Auto) 93.9 H Lymph % (Auto) 4.9 L Morgan % (Auto) 0.7 Eos % (Auto) 0.0 Baso % (Auto) 0.2 Absolute Neuts (auto) 12.1 H Absolute Lymphs (auto) 0.63 L Nucleated RBC % 0 D-Dimer Quant (PE/DVT) Specimen Type Sample Site pH Bicarbonate Actual Total CO2 Base Excess O2 Saturation O2 % ABG pCO2 ABG pO2 Riki Test O2 Delivery Device Clinical Comments Sodium Cancelled Potassium Cancelled Chloride Cancelled Carbon Dioxide Cancelled Anion Gap Cancelled BUN Cancelled Creatinine Cancelled Estim Creat Clear Calc Cancelled Est GFR (MDRD) Af Amer Cancelled Est GFR (MDRD) Non-Af Cancelled BUN/Creatinine Ratio Cancelled Glucose Cancelled Calcium Cancelled Troponin I Cancelled B-Natriuretic Peptide Urine Opiates Screen Urine Methadone Screen Ur Barbiturates Screen Ur Phencyclidine Scrn Ur Amphetamines Screen U Methamphetamin-MDMA U Benzodiazepines Scrn Urine Cocaine Screen U Cannabinoids Screen Ur Drug Screen Comment POC Glucose 12/18/20 12/18/20 12/18/20 01:12 01:25 07:40 WBC RBC Hgb Hct MCV MCH MCHC RDW Std Deviation RDW Coeff of Funmilayo Plt Count MPV Immature Gran % (Auto) Neut % (Auto) Lymph % (Auto) Morgan % (Auto) Eos % (Auto) Baso % (Auto) Absolute Neuts (auto) Absolute Lymphs (auto) Nucleated RBC % D-Dimer Quant (PE/DVT) Specimen Type Sample Site pH Bicarbonate Actual Total CO2 Base Excess O2 Saturation O2 % ABG pCO2 ABG pO2 Riki Test O2 Delivery Device Clinical Comments Sodium 136 Potassium 4.1 Chloride 102 Carbon Dioxide 23.0 Anion Gap 11 BUN 19 H Creatinine 1.50 H Estim Creat Clear Calc 73.29 Est GFR (MDRD) Af Amer 67 Est GFR (MDRD) Non-Af 55 L BUN/Creatinine Ratio 12.7 Glucose 299 H Calcium 8.8 Troponin I 0.032 B-Natriuretic Peptide 250.2 H Urine Opiates Screen NEGATIVE Urine Methadone Screen NEGATIVE Ur Barbiturates Screen NEGATIVE Ur Phencyclidine Scrn NEGATIVE Ur Amphetamines Screen POSITIVE H U Methamphetamin-MDMA POSITIVE H U Benzodiazepines Scrn NEGATIVE Urine Cocaine Screen NEGATIVE U Cannabinoids Screen NEGATIVE Ur Drug Screen Comment POC Glucose 12/18/20 12/18/20 12/18/20 07:44 09:15 09:22 WBC RBC Hgb Hct MCV MCH MCHC RDW Std Deviation RDW Coeff of Funmilayo Plt Count MPV Immature Gran % (Auto) Neut % (Auto) Lymph % (Auto) Morgan % (Auto) Eos % (Auto) Baso % (Auto) Absolute Neuts (auto) Absolute Lymphs (auto) Nucleated RBC % D-Dimer Quant (PE/DVT) 0.55 H* Specimen Type ART Sample Site L Radial pH 7.43 Bicarbonate Actual 28.8 H Total CO2 30 Base Excess 4 H O2 Saturation 97 O2 % 40 ABG pCO2 43.9 ABG pO2 86 Riki Test Positive O2 Delivery Device BiPAP Clinical Comments 16/10 40% Sodium Potassium Chloride Carbon Dioxide Anion Gap BUN Creatinine Estim Creat Clear Calc Est GFR (MDRD) Af Amer Est GFR (MDRD) Non-Af BUN/Creatinine Ratio Glucose Calcium Troponin I B-Natriuretic Peptide Urine Opiates Screen Urine Methadone Screen Ur Barbiturates Screen Ur Phencyclidine Scrn Ur Amphetamines Screen U Methamphetamin-MDMA U Benzodiazepines Scrn Urine Cocaine Screen U Cannabinoids Screen Ur Drug Screen Comment POC Glucose 252 H 12/18/20 12/18/20 12/18/20 09:25 12:12 16:36 WBC RBC Hgb Hct MCV MCH MCHC RDW Std Deviation RDW Coeff of Funmilayo Plt Count MPV Immature Gran % (Auto) Neut % (Auto) Lymph % (Auto) Morgan % (Auto) Eos % (Auto) Baso % (Auto) Absolute Neuts (auto) Absolute Lymphs (auto) Nucleated RBC % D-Dimer Quant (PE/DVT) Specimen Type Sample Site pH Bicarbonate Actual Total CO2 Base Excess O2 Saturation O2 % ABG pCO2 ABG pO2 Riki Test O2 Delivery Device Clinical Comments Sodium Potassium Chloride Carbon Dioxide Anion Gap BUN Creatinine Estim Creat Clear Calc Est GFR (MDRD) Af Amer Est GFR (MDRD) Non-Af BUN/Creatinine Ratio Glucose Calcium Troponin I B-Natriuretic Peptide 439.9 H Urine Opiates Screen Urine Methadone Screen Ur Barbiturates Screen Ur Phencyclidine Scrn Ur Amphetamines Screen U Methamphetamin-MDMA U Benzodiazepines Scrn Urine Cocaine Screen U Cannabinoids Screen Ur Drug Screen Comment POC Glucose 239 H 179 H 12/18/20 12/19/20 12/19/20 21:42 04:00 04:00 WBC 15.5 H RBC 6.04 Hgb 15.3 Hct 49.9 MCV 82.6 MCH 25.3 L MCHC 30.7 L RDW Std Deviation 45.1 H RDW Coeff of Funmilayo 15.2 H Plt Count 266 MPV 10.6 Immature Gran % (Auto) 0.600 Neut % (Auto) 76.5 H Lymph % (Auto) 16.4 L Morgan % (Auto) 6.3 Eos % (Auto) 0.0 Baso % (Auto) 0.2 Absolute Neuts (auto) 11.9 H Absolute Lymphs (auto) 2.54 Nucleated RBC % 0 D-Dimer Quant (PE/DVT) Specimen Type Sample Site pH Bicarbonate Actual Total CO2 Base Excess O2 Saturation O2 % ABG pCO2 ABG pO2 Riki Test O2 Delivery Device Clinical Comments Sodium 139 Potassium 4.5 Chloride 106 Carbon Dioxide 27.0 Anion Gap 6 BUN 35 H Creatinine 1.02 Estim Creat Clear Calc 107.78 Est GFR (MDRD) Af Amer 105 Est GFR (MDRD) Non-Af 87 BUN/Creatinine Ratio 34.3 H Glucose 165 H Calcium 8.4 L Troponin I B-Natriuretic Peptide Urine Opiates Screen Urine Methadone Screen Ur Barbiturates Screen Ur Phencyclidine Scrn Ur Amphetamines Screen U Methamphetamin-MDMA U Benzodiazepines Scrn Urine Cocaine Screen U Cannabinoids Screen Ur Drug Screen Comment POC Glucose 157 H Clinical Impression(s) from Imaging Studies Chest X-Ray 12/17/20 16:30 IMPRESSION: Poor inspiration with some bibasilar atelectasis. Electronically Signed: Puneet Perez MD at 16:48 EDT Tel , Service support , Medical Necessity - Tobacco Use Smoking Status: Current every day smoker Assessment/Plan All Active Problems (Last Reviewed 12/17/20 @ 18:04 by Christine Harris, TOMÁS-C) Heart failure with preserved ejection fraction (Acute) RECOMMENDATIONS: 1. Obtain blood and urine cultures. Start empiric antimicrobials. 2. BiPAP can be utilized if the patient is agreeable. 3. Start scheduled Seroquel. Continue Precedex as ordered. 4. Start IV Lasix once daily. Continue to monitor renal function closely. IMPRESSIONS: 1. Acute hypoxemic respiratory failure Likely multifactorial in etiology. The patient does have a history of heart failure with preserved ejection fraction and I strongly suspect that his profound hypertension on presentation may have contributed to a component of flash pulmonary edema. The patient will be continued on supplemental oxygen and noninvasive positive pressure ventilatory support as needed to maintain saturations at or above 90%. Plan to resume once daily IV Lasix as tolerated by hemodynamics and renal function. 2. Hypertensive urgency Suspect that elevated pressures at presentation may have been secondary to recent methamphetamine use. Plan to continue current medication regimen. 3. Acute kidney injury Improved. Likely prerenal in etiology and related to a component of overdiuresis. Frequency of diuretics have been decreased. Continue to monitor urine output and repeat BMP tomorrow morning. No current indication for renal replacement therapy. 4. Encephalopathy The patient does have underlying psychiatric/behavioral issues combined with a history of substance dependency. He will be continued on Precedex and as needed Haldol for now. In addition, the patient will be started on scheduled Seroquel today. 5. History of bipolar disorder/PTSD/methamphetamine use/tobacco dependency/questionable obstructive sleep apnea Complicates care, management, recovery and prognosis. Continue supportive measures as noted above. Continue nicotine replacement therapy. This note was generated with [employer] dictation software. It may contain incorrect words, spelling, and punctuation that were not noted in checking the note before signing. Inpatient E&M: 76908 Subs Hosp L3
--- NOTE | 2020-12-19 06:12 | NURSING ---
At 0530 patient asked for more water after drinking a glass. Patient was educated that due to patients diagnosis and current lung sounds that patient should not have water at this time. Patient immediately yelled that he is leaving and started pulling on IV, BP cuff, nasal cannula, and also started grabbing near by equipment such as BIPAP machine. Staff tried to keep patient in bed as he fought and became extremely short of breath. Vanesa Ugalde was called and extra staff arrived. Patient was given medication and restrained to bed. Pt. remained extremely short of breath but continued to refuse BIPAP so 5L NC was reapplied to patient.
[2020-12-19] MEDS: 0.9% Saline Lock 10 ML Syringe IV ×3 (06:30→17:31)
[2020-12-19] MEDS: Metoprolol Tartrate 5 MG/5 ML Vial IV ×3 (06:31→17:31)
[2020-12-19] MEDS: QUEtiapine 25 MG Tablet 50 MG PO ×2 (07:08→22:04)
[2020-12-19 08:06] LABS: Bedside Glucose 144 mg/dL (70-110)
--- NOTE | 2020-12-19 09:56 | NURSING ---
RNCM initial assessment: This manual writer to patient bedside, patient in restraints and asleep. Per nurse patient was given medication this morning behavior- code [email or web address]. Initial assessment deferred at this time as not appropriate. RNCM to continue to follow for assessment and discharge plan and needs. Currently on 5L[facility], In network DME providers: Vasiliy Woodard [employer], Maria Elena [employer], [employer], [employer]. Patient has a h/o COPD, Emphysema, Sleep Apnea. SOPHIE Hillman
[2020-12-19] MEDS: Furosemide 40 MG/4 ML Vial IV (10:08)
[2020-12-19] MEDS: Enoxaparin 40 MG/0.4 ML Syringe SC ×2 (10:09→22:15)
[2020-12-19] MEDS: Insulin Lispro 100 UNIT/ML INSULN.PEN SC (11:08)
[2020-12-19 11:10] LABS: Bedside Glucose 165 mg/dL (70-110)
[2020-12-19] MEDS: hydrALAZINE 20 MG/ML Vial 10 MG IV (12:12)
[2020-12-19] MEDS: Haloperidol Lactate 5 MG/ML Vial 2.5 MG IV ×2 (12:45→20:03)
--- NOTE | 2020-12-19 13:16 | NURSING ---
pt very agitated, sitting up in bed attempting to break out of restraints, kicking legs and yelling, stated I am claustrophobic, get these off my hands, I am leaving, you can't hold me here. Meme, RN at bedside with this RN. Educated patient on the need to stay and POC. Patient is alert and oriented x3, PRN haldol given, made aware.
--- NOTE | 2020-12-19 14:53 | PN_ITS ---
Patient Problems: Active and Suspected Problems (Last Reviewed 12/17/20 @ 18:04 by Christine Harris TALLOW REFINER-C) Heart failure with preserved ejection fraction (Acute) Subjective: Overnight events reviewed. Vanesa Tram called this morning and patient was given IM Haldol. Patient is now fairly somnolent and calm. Remains on Precedex. Patient has been refusing BiPAP through the night as well as breathing treatments. Vitals/I&O's: Vital Signs Temp Pulse Resp BP Pulse Ox 97.6 F L 97 25 H 155/99 H 98 12/19/20 12:00 12/19/20 13:00 12/19/20 13:00 12/19/20 13:00 12/19/20 13:00 Oxygen Flow Rate (L/min) 4 Oxygen Delivery Method Nasal Cannula Weight: 184.1 kg Body Mass Index (BMI) 53.8 Intake and Output for Last 24 Hours 12/17/20 12/18/20 12/19/20 23:59 23:59 23:59 Intake Total 464.92 / 533.92 2384.65 / 2453.65 1454.60 / 1454.60 Output Total 3225 / 3225 2375 / 2375 2425 / 2425 Balance -2760.08 / -2691.08 9.65 / 78.65 -970.40 / -970.40 General: No apparent distress, Well developed, Well nourished, - - Age obese white male lying in bed currently sleeping and difficult to arouse HEENT: Atraumatic, Normocephalic, EAC Clear, - - Pupils are constricted but equal bilaterally Oral: Moist Mucosa Neck: Supple, Trachea Midline, Thyroid Normal Size and Texture Lungs: No wheeze, No rales, Rhonchi - Scattered, - - Adventitious upper airway sounds Cardiovascular: Regular rate, Regular Rhythm, Normal S1, Normal S2, No murmurs, No Ectopic Activity, No rub noted, No Gallop Abdomen: Bowel Sounds Present, Soft, Non Tender, Non-Distended, No Hepato- splenomegaly, Obese Extremities: No clubbing, No cyanosis, No edema, Capillary Refill Less than 3 Seconds, Peripheral Pulses Normal Skin: No rashes, No breakdown Musculoskeletal: No Tenderness to Palpation of Joints or Extremities, No Muscle Wasting Lymphatic: No Cervical, Supraclavicular, or Inguinal Adenopathy Neurological: Deep Tendon Reflexes 2+/4 and Symmetrical, - - Full exam unable to be performed secondary to mental status Psych/Mental Status: - - Is currently sedated Laboratory Results 12/18/20 16:36: POC Glucose 179 H 12/18/20 21:42: POC Glucose 157 H 12/19/20 04:00: WBC 15.5 H, RBC 6.04, Hgb 15.3, Hct 49.9, MCV 82.6, MCH 25.3 L, MCHC 30.7 L, RDW Std Deviation 45.1 H, RDW Coeff of Funmilayo 15.2 H, Plt Count 266, MPV 10.6, Immature Gran % (Auto) 0.600, Neut % (Auto) 76.5 H, Lymph % (Auto) 16.4 L, Sutton % (Auto) 6.3, Eos % (Auto) 0.0, Baso % (Auto) 0.2, Absolute Neuts (auto) 11.9 H, Absolute Lymphs (auto) 2.54, Nucleated RBC % 0 12/19/20 04:00: Sodium 139, Potassium 4.5, Chloride 106, Carbon Dioxide 27.0, Anion Gap 6, BUN 35 H, Creatinine 1.02, Estim Creat Clear Calc 107.78, Est GFR (MDRD) Af Amer 105, Est GFR (MDRD) Non-Af 87, BUN/Creatinine Ratio 34.3 H, Glucose 165 H, Calcium 8.4 L 12/19/20 07:59: POC Glucose 144 H 12/19/20 11:08: POC Glucose 165 H Current Medications Acetaminophen (Acetaminophen 325 Mg Tablet) 650 mg PO Q6H PRN PRN PRN Reason: Pain Score 1-10/Temp > 100.7 F Albuterol Sulfate (Albuterol 2.5 Mg/3 Ml Vial.Neb.) 2.5 mg INHALATION Q2H PRN PRN PRN Reason: SHORTNESS OF BREATH Albuterol/Ipratropium (Ipratropium/Albuterol Sulfate 3 Ml Ampul.Neb) 3 ml INHALATION Q4H.RT UNA Last Admin: 12/19/20 06:56 Dose: 3 ml Documented by: Docusate Sodium (Docusate Sodium 100 Mg Capsule) 100 mg PO BID PRN PRN PRN Reason: Constipation Enalaprilat (Enalaprilat 1.25 Mg/Ml Vial) 0.625 mg IV Q6 PRN PRN Reason: SBP > 160 Enoxaparin Sodium (Enoxaparin 40 Mg/0.4 Ml Syringe) 40 mg SC BID [facility] Last Admin: 12/19/20 10:09 Dose: 40 mg Documented by: Furosemide (Furosemide 40 Mg/4 Ml Vial) 40 mg IV DAILY [facility] Last Admin: 12/19/20 10:08 Dose: 40 mg Documented by: Haloperidol Lactate (Haloperidol Lactate 5 Mg/Ml Vial) 2.5 mg IV Q6H PRN PRN PRN Reason: agitation Last Admin: 12/19/20 12:45 Dose: 2.5 mg Documented by: Hydralazine HCl (Hydralazine 20 Mg/Ml Vial) 10 mg IV Q4H PRN PRN Reason: SBP >160 Last Admin: 12/19/20 12:12 Dose: 10 mg Documented by: Sodium Chloride () 250 mls @ 15 mls/hr IV .[id number] PRN PRN Reason: Saline Flush Sodium Chloride () 250 mls @ 15 mls/hr IV .[id number] PRN PRN Reason: Additional IVPB Infusion Dexmedetomidine HCl 1,000 mcg/ (Sodium Chloride) 250 mls @ 23.013 mls/hr CONT INF .[id number] [facility]; Protocol Last Admin: 12/19/20 12:56 Dose: 1.5 mcg/kg/hr, 69 mls/hr Documented by: Ampicillin Sodium/Sulbactam (Sodium 3 gm/ Sodium Chloride) 112 mls @ 150 mls/hr IV Q6 [facility] Last Admin: 12/19/20 13:49 Dose: 150 mls/hr Documented by: Insulin Human Lispro (Insulin Lispro 100 Unit/Ml Insuln.Pen) 0 unit [facility]; Protocol Last Admin: 12/19/20 11:08 Dose: 2 u Documented by: Labetalol HCl (Labetalol (Prefilled) 20 Mg/4 Ml) 20 mg IV Q6H PRN PRN Reason: SBP GREATER THAN 180 Last Admin: 12/17/20 18:54 Dose: 20 mg Documented by: Metoprolol Tartrate (Metoprolol Tartrate 5 Mg/5 Ml Vial) 5 mg IV Q6 [facility] Last Admin: 12/19/20 11:08 Dose: 5 mg Documented by: Nicotine (Nicotine 21 Mg Patch) 21 mg TD DAILY [facility] Last Admin: 12/19/20 10:09 Dose: 21 mg Documented by: Quetiapine Fumarate (Quetiapine 25 Mg Tablet) 50 mg PO BID [facility] Last Admin: 12/19/20 07:08 Dose: 50 mg Documented by: Sodium Chloride (0.9% Saline Lock 10 Ml Syringe) 10 - 40 ml IV UD PRN PRN Reason: SALINE FLUSH Last Admin: 12/19/20 12:12 Dose: 40 ml Documented by: STROKE Vital Signs/Narrative: Vital Signs Temp Pulse Resp BP BP Pulse Ox 12/19/20 13:00 97 25 H 155/99 H 98 12/19/20 12:40 136/80 H 12/19/20 12:12 90 12/19/20 12:00 97.6 F L 90 27 H 172/125 H 100 12/19/20 11:59 91 12/19/20 11:08 90 150/113 H 12/19/20 11:00 93 25 H 150/113 H 100 Medical Necessity - Tobacco Use Smoking Status: Current every day smoker Assessment/Plan All Active Problems (Last Reviewed 12/17/20 @ 18:04 by Christine Harris NP-C) Heart failure with preserved ejection fraction (Acute) Acute hypoxic respiratory failure secondary to decompensated HFpEF/ARACELY/OHS/PAH/suspected aspiration -Presented to the emergency department earlier yesterday but left AMA--> that time he is very agitated and verbally abusive to the staff -He represented when he was convinced by a friend to return and have his issues addressed -I suspect his respiratory failure is multifactorial and the result of continued methamphetamine use with hypertension causing a stiff ventricle and recurrent heart failure secondary to flash pulmonary edema as well as untreated sleep apnea, obesity, COPD, and pulmonary artery hypertension -With elevated white count will initiate Unasyn to cover for aspiration day 1 -Lasix 40 mg IV daily -She had refused BiPAP overnight currently satting well on nasal cannula at 5 L -Wean oxygen as able -Covid test was negative -Patient had a recent echo done in 2 2020 that showed an EF of 55% pulmonary artery systolic pressures of 44 mmHg indicating mild pulmonary artery hypertension, moderate concentric LVH with stage II diastolic dysfunction -No need for repeat echo at this time -Control blood pressure -Continue Precedex n.p.o. medications changed to IV for the time being -N.p.o. until mental status is improved -BNP was markedly elevated at 439.9 -Nitro drip was discontinued -Appreciate critical care input Acute toxic/metabolic encephalopathy -Continue Precedex and wean as able -As needed Haldol -Suspect multifactorial BRIJESH -Resolving Hypertension -Convert p.o. metoprolol to metoprolol 5 mg every 6 hours -Convert lisinopril to enalaprilat 0.625 every 6 hours as needed for systolic blood pressure greater than 160 Hyperglycemia -Continue SSI every 6 hours -Check A1c in a.m. -Patient is n.p.o. at this time Morbid obesity -Recommend weight loss -Complicates overall prognosis and management Methamphetamine abuse -Tox screen was positive for methamphetamines -I suspect this is contributing to his recurrent issues with heart failure Tobacco abuse -Suggest cessation -Nicotine patch as needed History of bipolar disorder/PTSD -May need to consider psych consultation when patient's mental status allows DVT prophylaxis -Continue enoxaparin 40 mg twice daily CODE STATUS -DNR CCA no intubation per discussion with admitting physician in the emergency department Inpatient E&M: 36301 Subs Hosp L3
[2020-12-19 16:40] LABS: Bedside Glucose 149 mg/dL (70-110)
--- NOTE | 2020-12-19 19:51 | CPS ---
Pt received half tx d/t anxiety
[2020-12-19 22:50] LABS: Bedside Glucose 149 mg/dL (70-110)
--- NOTE | 2020-12-19 23:54 | CPS ---
Pt cannot tolerate PAP therapy at this time
[2020-12-20] VITALS (22 sets, daily range): BP systolic 108–188; BP diastolic 56–110; PULSE 71–114; RESP 20–36; TEMP 36.7–36.9; O2SAT 81–99
[2020-12-20] MEDS: Metoprolol Tartrate 5 MG/5 ML Vial IV ×2 (00:45→05:02)
[2020-12-20] MEDS: LORazepam 2 MG/ML Syringe 1 MG IV ×5 (00:46→20:39)
[2020-12-20] MEDS: 0.9% Saline Lock 10 ML Syringe IV ×7 (00:46→16:43)
[2020-12-20] MEDS: Haloperidol Lactate 5 MG/ML Vial 2.5 MG IV ×5 (02:18→20:40)
[2020-12-20] MEDS: Dexmedetomidine 1,000 mcg in 0.9% NS 240 mL 69 MCG CONT INF ×2 (03:14→07:06)
[2020-12-20 04:59] LABS: Absolute Lymphocyte Count 2.51 X10^3/uL (0.83-4.51); Absolute Neutrophil Count 9.4 X10^3/uL (2.0-7.7); Basophil# 0.05 X10^3/uL; Basophil% 0.4 % (0-1); Hematocrit 49.2 % (40-54); Hemoglobin 14.9 g/dL (13.0-16.5); Lymphocyte # 2.51 X10^3/ul (4.0); Lymphocyte % 18.9 % (19-41); Mean Corp Hgb Conc 30.3 g/dL (32-36); Mean Corpuscular Hgb 25.2 pg (27.0-32.0); Mean Corpuscular Volume 83.1 fL (80-94); Mean Platelet Vol. 10.2 fl (6.2-12.0); Monocyte# 1.23 X10^3/uL; Monocyte% 9.3 % (0-10); NRBC Flagged by Analyzer 0 % (0-5); Neutrophil # 9.44 X10^3/uL (2.7-7.7); Neutrophil % 70.9 % (47-70); Platelet Count 272 K/mm3 (150-450); RBC Distribution Width CV 15.2 % (11.6-14.6); Red Blood Count 5.92 M/mm3 (4.6-6.2); White Blood Count 13.3 K/mm3 (4.4-11.0)
[2020-12-20 05:06] LABS: Bedside Glucose 150 mg/dL (70-110)
[2020-12-20 05:16] LABS: ALB/GLOB Ratio 0.7 RATIO (0.9-2.4); AST(SGOT) 32 U/L (15-37); Alanine Aminotransfer ALT/SGPT 28 U/L (16-61); Albumin, Serum 2.8 g/dL (3.2-5.0); Alkaline Phosphatase 63 U/L (45-117); Anion Gap 5 (5-15); BUN 30 mg/dL (7-18); BUN/Creat Ratio 32.1 RATIO (10-20); Calcium,Total 8.1 mg/dL (8.5-10.1); Chloride 103 mmol/L (98-107); Creatinine, Serum 0.94 mg/dL (0.70-1.30); EST Glomerular Filtration Rate 96 mL/min (>60); Est Glom Filt Rate - Afr Amer 116 mL/min (>60); Estimated Creatinine Clearance 116.95 ml/min; Globulin 3.8 g/dL (2.2-4.2); Glucose 156 mg/dL (74-106); Potassium 4.2 mmol/L (3.5-5.1); Protein, Total 6.6 g/dL (6.4-8.2); Sodium Level 137 mmol/L (136-145)
--- NOTE | 2020-12-20 05:35 | PCM.PN.INT ---
Subjective: The patient was seen and examined at the bedside this morning. Events from the last 24 hours have been reviewed. The patient is currently afebrile, hemodynamically stable and maintaining appropriate oxygen saturations on 2 L/min via nasal cannula. The patient continues to be intolerant of BiPAP and aerosol treatments. Objective: The patient's most recent lab work, culture data and imaging studies have all been personally reviewed. Surface echocardiogram from October 2020 revealed moderate concentric LVH with an ejection fraction of 55% and stage II diastolic dysfunction. Pulmonary artery systolic pressure was estimated to be 46 mmHg. General: No apparent distress, - - Currently still somnolent HEENT: Atraumatic, Normocephalic Oral: No Gingival or Mucosal Lesions/ Ulcerations Neck: Supple, No Nodes, Trachea Midline Lungs: Diminished, Wheezes Cardiovascular: Regular rate, Regular Rhythm Abdomen: Bowel Sounds Present, Soft, Non Tender, Obese Extremities: No clubbing, No cyanosis, Edema Skin: No breakdown Musculoskeletal: No Tenderness to Palpation of Joints or Extremities Lymphatic: No Cervical, Supraclavicular, or Inguinal Adenopathy Neurological: - - No focal neurological deficits. Psych/Mental Status: Anxious, - - Continues to be intermittently agitated and restless. Vital Signs Temp Pulse Resp BP Pulse Ox 98.1 F 96 23 H 117/78 95 12/20/20 00:00 12/20/20 05:02 12/20/20 05:00 12/20/20 05:02 12/20/20 05:00 Oxygen Flow Rate (L/min) 2 Oxygen Delivery Method Nasal Cannula Weight: 405 lb 13.936 oz Body Mass Index (BMI) 53.8 Intake and Output for Last 24 Hours 12/18/20 12/19/20 12/20/20 23:59 23:59 23:59 Intake Total 2384.65 / 2453.65 3666.20 / 4051.50 1935.90 / 1935.90 Output Total 2375 / 2375 3525 / 4075 1100 / 1100 Balance 9.65 / 78.65 141.20 / -23.50 835.90 / 835.90 Labs (Last 48 Hours) 12/17/20 12/18/20 12/18/20 19:54 01:12 07:40 WBC RBC Hgb Hct MCV MCH MCHC RDW Std Deviation RDW Coeff of Funmilayo Plt Count MPV Immature Gran % (Auto) Neut % (Auto) Lymph % (Auto) [place] % (Auto) Eos % (Auto) Baso % (Auto) Absolute Neuts (auto) Absolute Lymphs (auto) Nucleated RBC % D-Dimer Quant (PE/DVT) Specimen Type Sample Site pH Bicarbonate Actual Total CO2 Base Excess O2 Saturation O2 % ABG pCO2 ABG pO2 Riki Test O2 Delivery Device Clinical Comments Sodium Potassium Chloride Carbon Dioxide Anion Gap BUN Creatinine Estim Creat Clear Calc Est GFR (MDRD) Af Amer Est GFR (MDRD) Non-Af BUN/Creatinine Ratio Glucose Hemoglobin A1c Calcium Total Bilirubin AST ALT Alkaline Phosphatase B-Natriuretic Peptide 250.2 H Total Protein Albumin Globulin Albumin/Globulin Ratio Urine Opiates Screen NEGATIVE Urine Methadone Screen NEGATIVE Ur Barbiturates Screen NEGATIVE Ur Phencyclidine Scrn NEGATIVE Ur Amphetamines Screen POSITIVE H U Methamphetamin-MDMA POSITIVE H U Benzodiazepines Scrn NEGATIVE Urine Cocaine Screen NEGATIVE U Cannabinoids Screen NEGATIVE Ur Drug Screen Comment POC Glucose 213 H 12/18/20 12/18/20 12/18/20 07:44 09:15 09:22 WBC RBC Hgb Hct MCV MCH MCHC RDW Std Deviation RDW Coeff of Funmilayo Plt Count MPV Immature Gran % (Auto) Neut % (Auto) Lymph % (Auto) [place] % (Auto) Eos % (Auto) Baso % (Auto) Absolute Neuts (auto) Absolute Lymphs (auto) Nucleated RBC % D-Dimer Quant (PE/DVT) 0.55 H* Specimen Type ART Sample Site L Radial pH 7.43 Bicarbonate Actual 28.8 H Total CO2 30 Base Excess 4 H O2 Saturation 97 O2 % 40 ABG pCO2 43.9 ABG pO2 86 Riki Test Positive O2 Delivery Device BiPAP Clinical Comments 16/10 40% Sodium Potassium Chloride Carbon Dioxide Anion Gap BUN Creatinine Estim Creat Clear Calc Est GFR (MDRD) Af Amer Est GFR (MDRD) Non-Af BUN/Creatinine Ratio Glucose Hemoglobin A1c Calcium Total Bilirubin AST ALT Alkaline Phosphatase B-Natriuretic Peptide Total Protein Albumin Globulin Albumin/Globulin Ratio Urine Opiates Screen Urine Methadone Screen Ur Barbiturates Screen Ur Phencyclidine Scrn Ur Amphetamines Screen U Methamphetamin-MDMA U Benzodiazepines Scrn Urine Cocaine Screen U Cannabinoids Screen Ur Drug Screen Comment POC Glucose 252 H 03/23/21 03/23/21 03/23/21 09:25 12:12 16:36 WBC RBC Hgb Hct MCV MCH MCHC RDW Std Deviation RDW Coeff of Funmilayo Plt Count MPV Immature Gran % (Auto) Neut % (Auto) Lymph % (Auto) [place] % (Auto) Eos % (Auto) Baso % (Auto) Absolute Neuts (auto) Absolute Lymphs (auto) Nucleated RBC % D-Dimer Quant (PE/DVT) Specimen Type Sample Site pH Bicarbonate Actual Total CO2 Base Excess O2 Saturation O2 % ABG pCO2 ABG pO2 Riki Test O2 Delivery Device Clinical Comments Sodium Potassium Chloride Carbon Dioxide Anion Gap BUN Creatinine Estim Creat Clear Calc Est GFR (MDRD) Af Amer Est GFR (MDRD) Non-Af BUN/Creatinine Ratio Glucose Hemoglobin A1c Calcium Total Bilirubin AST ALT Alkaline Phosphatase B-Natriuretic Peptide 439.9 H Total Protein Albumin Globulin Albumin/Globulin Ratio Urine Opiates Screen Urine Methadone Screen Ur Barbiturates Screen Ur Phencyclidine Scrn Ur Amphetamines Screen U Methamphetamin-MDMA U Benzodiazepines Scrn Urine Cocaine Screen U Cannabinoids Screen Ur Drug Screen Comment POC Glucose 239 H 179 H 12/18/20 12/19/20 12/19/20 21:42 04:00 04:00 WBC 15.5 H RBC 6.04 Hgb 15.3 Hct 49.9 MCV 82.6 MCH 25.3 L MCHC 30.7 L RDW Std Deviation 45.1 H RDW Coeff of Funmilayo 15.2 H Plt Count 266 MPV 10.6 Immature Gran % (Auto) 0.600 Neut % (Auto) 76.5 H Lymph % (Auto) 16.4 L [place] % (Auto) 6.3 Eos % (Auto) 0.0 Baso % (Auto) 0.2 Absolute Neuts (auto) 11.9 H Absolute Lymphs (auto) 2.54 Nucleated RBC % 0 D-Dimer Quant (PE/DVT) Specimen Type Sample Site pH Bicarbonate Actual Total CO2 Base Excess O2 Saturation O2 % ABG pCO2 ABG pO2 Riki Test O2 Delivery Device Clinical Comments Sodium 139 Potassium 4.5 Chloride 106 Carbon Dioxide 27.0 Anion Gap 6 BUN 35 H Creatinine 1.02 Estim Creat Clear Calc 107.78 Est GFR (MDRD) Af Amer 105 Est GFR (MDRD) Non-Af 87 BUN/Creatinine Ratio 34.3 H Glucose 165 H Hemoglobin A1c Calcium 8.4 L Total Bilirubin AST ALT Alkaline Phosphatase B-Natriuretic Peptide Total Protein Albumin Globulin Albumin/Globulin Ratio Urine Opiates Screen Urine Methadone Screen Ur Barbiturates Screen Ur Phencyclidine Scrn Ur Amphetamines Screen U Methamphetamin-MDMA U Benzodiazepines Scrn Urine Cocaine Screen U Cannabinoids Screen Ur Drug Screen Comment POC Glucose 157 H 12/19/20 12/19/20 12/19/20 07:59 11:08 16:34 WBC RBC Hgb Hct MCV MCH MCHC RDW Std Deviation RDW Coeff of Funmilayo Plt Count MPV Immature Gran % (Auto) Neut % (Auto) Lymph % (Auto) [place] % (Auto) Eos % (Auto) Baso % (Auto) Absolute Neuts (auto) Absolute Lymphs (auto) Nucleated RBC % D-Dimer Quant (PE/DVT) Specimen Type Sample Site pH Bicarbonate Actual Total CO2 Base Excess O2 Saturation O2 % ABG pCO2 ABG pO2 Riki Test O2 Delivery Device Clinical Comments Sodium Potassium Chloride Carbon Dioxide Anion Gap BUN Creatinine Estim Creat Clear Calc Est GFR (MDRD) Af Amer Est GFR (MDRD) Non-Af BUN/Creatinine Ratio Glucose Hemoglobin A1c Calcium Total Bilirubin AST ALT Alkaline Phosphatase B-Natriuretic Peptide Total Protein Albumin Globulin Albumin/Globulin Ratio Urine Opiates Screen Urine Methadone Screen Ur Barbiturates Screen Ur Phencyclidine Scrn Ur Amphetamines Screen U Methamphetamin-MDMA U Benzodiazepines Scrn Urine Cocaine Screen U Cannabinoids Screen Ur Drug Screen Comment POC Glucose 144 H 165 H 149 H 12/19/20 12/20/20 12/20/20 22:13 04:45 04:45 WBC 13.3 H RBC 5.92 Hgb 14.9 Hct 49.2 MCV 83.1 MCH 25.2 L MCHC 30.3 L RDW Std Deviation 46.0 H RDW Coeff of Funmilayo 15.2 H Plt Count 272 MPV 10.2 Immature Gran % (Auto) 0.500 Neut % (Auto) 70.9 H Lymph % (Auto) 18.9 L [place] % (Auto) 9.3 Eos % (Auto) 0.0 Baso % (Auto) 0.4 Absolute Neuts (auto) 9.4 H Absolute Lymphs (auto) 2.51 Nucleated RBC % 0 D-Dimer Quant (PE/DVT) Specimen Type Sample Site pH Bicarbonate Actual Total CO2 Base Excess O2 Saturation O2 % ABG pCO2 ABG pO2 Riki Test O2 Delivery Device Clinical Comments Sodium 137 Potassium 4.2 Chloride 103 Carbon Dioxide 29.0 Anion Gap 5 BUN 30 H Creatinine 0.94 Estim Creat Clear Calc 116.95 Est GFR (MDRD) Af Amer 116 Est GFR (MDRD) Non-Af 96 BUN/Creatinine Ratio 32.1 H Glucose 156 H Hemoglobin A1c Calcium 8.1 L Total Bilirubin 1.10 H AST 32 ALT 28 Alkaline Phosphatase 63 B-Natriuretic Peptide Total Protein 6.6 Albumin 2.8 L Globulin 3.8 Albumin/Globulin Ratio 0.7 L Urine Opiates Screen Urine Methadone Screen Ur Barbiturates Screen Ur Phencyclidine Scrn Ur Amphetamines Screen U Methamphetamin-MDMA U Benzodiazepines Scrn Urine Cocaine Screen U Cannabinoids Screen Ur Drug Screen Comment POC Glucose 149 H 12/20/20 12/20/20 04:45 04:57 WBC RBC Hgb Hct MCV MCH MCHC RDW Std Deviation RDW Coeff of Funmilayo Plt Count MPV Immature Gran % (Auto) Neut % (Auto) Lymph % (Auto) [place] % (Auto) Eos % (Auto) Baso % (Auto) Absolute Neuts (auto) Absolute Lymphs (auto) Nucleated RBC % D-Dimer Quant (PE/DVT) Specimen Type Sample Site pH Bicarbonate Actual Total CO2 Base Excess O2 Saturation O2 % ABG pCO2 ABG pO2 Riki Test O2 Delivery Device Clinical Comments Sodium Potassium Chloride Carbon Dioxide Anion Gap BUN Creatinine Estim Creat Clear Calc Est GFR (MDRD) Af Amer Est GFR (MDRD) Non-Af BUN/Creatinine Ratio Glucose Hemoglobin A1c Pending Calcium Total Bilirubin AST ALT Alkaline Phosphatase B-Natriuretic Peptide Total Protein Albumin Globulin Albumin/Globulin Ratio Urine Opiates Screen Urine Methadone Screen Ur Barbiturates Screen Ur Phencyclidine Scrn Ur Amphetamines Screen U Methamphetamin-MDMA U Benzodiazepines Scrn Urine Cocaine Screen U Cannabinoids Screen Ur Drug Screen Comment POC Glucose 150 H Clinical Impression(s) from Imaging Studies Chest X-Ray 12/17/20 16:30 IMPRESSION: Poor inspiration with some bibasilar atelectasis. Electronically Signed: Puneet Perez MD at 16:48 EDT Tel , Service support , Medical Necessity - Tobacco Use Smoking Status: Current every day smoker Assessment/Plan All Active Problems (Last Reviewed 12/17/20 @ 18:04 by MARKO Graham) Heart failure with preserved ejection fraction (Acute) RECOMMENDATIONS: 1. Plan to increase the patient's scheduled Seroquel dose and attempt to wean from Precedex today. 2. BiPAP can be utilized if the patient is agreeable. 3. Continue empiric antimicrobials. 4. Continue diuretic therapy as tolerated by hemodynamics and renal function. IMPRESSIONS: 1. Acute hypoxemic respiratory failure Likely multifactorial in etiology. The patient does have a history of heart failure with preserved ejection fraction and I strongly suspect that his profound hypertension on presentation may have contributed to a component of flash pulmonary edema. The patient will be continued on supplemental oxygen and noninvasive positive pressure ventilatory support as needed to maintain saturations at or above 90%. Plan to continue once daily IV Lasix as tolerated by hemodynamics and renal function. 2. Hypertensive urgency Resolved. Suspect that elevated pressures at presentation may have been secondary to recent methamphetamine use. Plan to continue current medication regimen. 3. Acute kidney injury Improved. Likely prerenal in etiology and related to a component of overdiuresis. Frequency of diuretics have been decreased. Continue to monitor urine output. No current indication for renal replacement therapy. 4. Encephalopathy The patient does have underlying psychiatric/behavioral issues combined with a history of substance dependency. The patient will be continued on Seroquel with plans to increase his dose along with as needed Haldol. Plan to wean from Precedex as tolerated today. 5. History of bipolar disorder/PTSD/methamphetamine use/tobacco dependency/questionable obstructive sleep apnea Complicates care, management, recovery and prognosis. Continue supportive measures as noted above. Continue nicotine replacement therapy. This note was generated with [employer] dictation software. It may contain incorrect words, spelling, and punctuation that were not noted in checking the note before signing. Inpatient E&M: [id number] [facility] L3
[2020-12-20] MEDS: Insulin Lispro 100 UNIT/ML INSULN.PEN SC ×2 (06:48→20:45)
[2020-12-20 06:56] LABS: Bedside Glucose 151 mg/dL (70-110)
[2020-12-20] MEDS: Ipratropium/Albuterol Sulfate 3 ML AMPUL.NEB INHALATION ×2 (07:05→22:15)
--- NOTE | 2020-12-20 08:30 | NURSING ---
Pt yelling out Help me. Into room, pt anxious and restless. Is able to answer all orientation questions. States I'm talking like a retard and I'm getting very frustrated from it. Support given to pt. Pt sitting up at side of bed and wants to have his back washed and get to the chair. Pt washed up. Up to chair w/SBA. Pt continues to be short of breath and restless but is lying back in the recliner now. Breakfast was ordered for pt.
[2020-12-20 08:49] LABS: Hemoglobin A1c 7.2 % (3.8-5.6)
--- NOTE | 2020-12-20 09:27 | PCM.PN.HOSP ---
Patient Problems: Active and Suspected Problems (Last Reviewed 12/17/20 @ 18:04 by Christine Harris NP-C) Heart failure with preserved ejection fraction (Acute) Subjective: Patient is sitting up in a chair nursing at bedside. Patient is very anxious has intermittent episodes of panic where he states he cannot breathe but his oxygen saturations are perfectly stable on nasal cannula. He confirms that he follows at the counseling center. Dr. Cote has already increased his Seroquel as we are trying to wean off Precedex but currently he remains on 1.5 of Precedex. The as needed Ativan also seems to help. Patient was threatening to leave AMA last evening. Vitals/I&O's: Vital Signs Temp Pulse Resp BP Pulse Ox 98.1 F 82 24 H 138/93 H 99 12/20/20 00:00 12/20/20 07:05 12/20/20 07:05 12/20/20 06:00 12/20/20 07:05 Oxygen Flow Rate (L/min) 2 Oxygen Delivery Method Nasal Cannula Weight: 184.1 kg Body Mass Index (BMI) 53.8 Intake and Output for Last 24 Hours 12/18/20 12/19/20 12/20/20 23:59 23:59 23:59 Intake Total 2384.65 / 2453.65 3666.20 / 4051.50 2297.90 / 2297.90 Output Total 2375 / 2375 3525 / 4075 1575 / 1575 Balance 9.65 / 78.65 141.20 / -23.50 722.90 / 722.90 General: Alert, Cooperative, Well developed, Well nourished, - - Obese white male sitting up in a chair in a reclining position, periods of intermittent anxiety and panic, nursing at bedside HEENT: Atraumatic, PERRLA, EOMI, Normocephalic, EAC Clear, - - Fair dentition, Mallampati 3 Oral: Moist Mucosa, No Gingival or Mucosal Lesions/ Ulcerations Neck: Supple, Trachea Midline, Thyroid Normal Size and Texture Lungs: No rhonchi, No rales, Diminished, Wheezes - Few scattered inspiratory and expiratory wheezes Cardiovascular: Regular rate, Regular Rhythm, Normal S1, Normal S2, No murmurs, No Ectopic Activity, No rub noted, No Gallop Abdomen: Bowel Sounds Present, Soft, Non Tender, Non-Distended, Obese, No hernias noted Extremities: No clubbing, No cyanosis, Edema - Trace bilateral upper and lower extremity edema Skin: No rashes, No breakdown, - - Multiple tattoos Musculoskeletal: No Tenderness to Palpation of Joints or Extremities, No Muscle Wasting Lymphatic: No Cervical, Supraclavicular, or Inguinal Adenopathy Neurological: Cranial nerves II-XII grossly intact, Neuro grossly intact, Muscle tone normal, Sensory exam intact to light touch and pain, Coordination normal Psych/Mental Status: Agitated, Anxious, Impulsive Laboratory Results 12/19/20 11:08: POC Glucose 165 H 12/19/20 16:34: POC Glucose 149 H 12/19/20 22:13: POC Glucose 149 H 12/20/20 04:45: WBC 13.3 H, RBC 5.92, Hgb 14.9, Hct 49.2, MCV 83.1, MCH 25.2 L, MCHC 30.3 L, RDW Std Deviation 46.0 H, RDW Coeff of Funmilayo 15.2 H, Plt Count 272, MPV 10.2, Immature Gran % (Auto) 0.500, Neut % (Auto) 70.9 H, Lymph % (Auto) 18.9 L, [place] % (Auto) 9.3, Eos % (Auto) 0.0, Baso % (Auto) 0.4, Absolute Neuts (auto) 9.4 H, Absolute Lymphs (auto) 2.51, Nucleated RBC % 0 12/20/20 04:45: Sodium 137, Potassium 4.2, Chloride 103, Carbon Dioxide 29.0, Anion Gap 5, BUN 30 H, Creatinine 0.94, Estim Creat Clear Calc 116.95, Est GFR (MDRD) Af Amer 116, Est GFR (MDRD) Non-Af 96, BUN/Creatinine Ratio 32.1 H, Glucose 156 H, Calcium 8.1 L, Total Bilirubin 1.10 H, AST 32, ALT 28, Alkaline Phosphatase 63, Total Protein 6.6, Albumin 2.8 L, Globulin 3.8, Albumin/Globulin Ratio 0.7 L 12/20/20 04:45: Hemoglobin A1c 7.2 H 12/20/20 04:57: POC Glucose 150 H 12/20/20 06:46: POC Glucose 151 H Current Medications Acetaminophen (Acetaminophen 325 Mg Tablet) 650 mg PO Q6H PRN PRN PRN Reason: Pain Score 1-10/Temp > 100.7 F Albuterol Sulfate (Albuterol 2.5 Mg/3 Ml Vial.Neb.) 2.5 mg INHALATION Q2H PRN PRN PRN Reason: SHORTNESS OF BREATH Albuterol/Ipratropium (Ipratropium/Albuterol Sulfate 3 Ml Ampul.Neb) 3 ml INHALATION Q4H.RT [facility] Last Admin: 12/20/20 07:05 Dose: 3 ml Documented by: Docusate Sodium (Docusate Sodium 100 Mg Capsule) 100 mg PO BID PRN PRN PRN Reason: Constipation Enalaprilat (Enalaprilat 1.25 Mg/Ml Vial) 0.625 mg IV Q6 PRN PRN Reason: SBP > 160 Enoxaparin Sodium (Enoxaparin 40 Mg/0.4 Ml Syringe) 40 mg SC BID [facility] Last Admin: 12/19/20 22:15 Dose: 40 mg Documented by: Furosemide (Furosemide 40 Mg/4 Ml Vial) 40 mg IV DAILY [facility] Last Admin: 12/19/20 10:08 Dose: 40 mg Documented by: Haloperidol Lactate (Haloperidol Lactate 5 Mg/Ml Vial) 2.5 mg IV Q6H PRN PRN PRN Reason: agitation Last Admin: 12/20/20 02:18 Dose: 2.5 mg Documented by: Hydralazine HCl (Hydralazine 20 Mg/Ml Vial) 10 mg IV Q4H PRN PRN Reason: SBP >160 Last Admin: 12/19/20 12:12 Dose: 10 mg Documented by: Sodium Chloride () 250 mls @ 15 mls/hr IV .[id number] PRN PRN Reason: Saline Flush Last Infusion: 12/20/20 06:02 Dose: 15 mls/hr Documented by: Sodium Chloride () 250 mls @ 15 mls/hr IV .[id number] PRN PRN Reason: Additional IVPB Infusion Dexmedetomidine HCl 1,000 mcg/ (Sodium Chloride) 250 mls @ 23.013 mls/hr CONT INF .[id number] [facility]; Protocol Last Admin: 12/20/20 07:06 Dose: 1.5 mcg/kg/hr, 69 mls/hr Documented by: Ampicillin Sodium/Sulbactam (Sodium 3 gm/ Sodium Chloride) 112 mls @ 150 mls/hr IV Q6 [facility] Last Infusion: 12/20/20 05:48 Dose: Infused Documented by: Insulin Human Lispro (Insulin Lispro 100 Unit/Ml Insuln.Pen) 0 unit SC ACHS [facility]; Protocol Last Admin: 12/20/20 06:48 Dose: 2 u Documented by: Labetalol HCl (Labetalol (Prefilled) 20 Mg/4 Ml) 20 mg IV Q6H PRN PRN Reason: SBP GREATER THAN 180 Last Admin: 12/17/20 18:54 Dose: 20 mg Documented by: Lorazepam (Lorazepam 2 Mg/Ml Syringe) 1 mg IV Q4H PRN PRN PRN Reason: ANXIETY/AGITATION Last Admin: 12/20/20 08:33 Dose: 1 mg Documented by: Metoprolol Tartrate (Metoprolol Tartrate 25 Mg Tablet) 25 mg PO BID [facility] Nicotine (Nicotine 21 Mg Patch) 21 mg TD DAILY [facility] Last Admin: 12/19/20 10:09 Dose: 21 mg Documented by: Quetiapine Fumarate (Quetiapine 100 Mg Tablet) 200 mg PO BID [facility] Sodium Chloride (0.9% Saline Lock 10 Ml Syringe) 10 - 40 ml IV UD PRN PRN Reason: SALINE FLUSH Last Admin: 12/20/20 08:33 Dose: 10 ml Documented by: STROKE Vital Signs/Narrative: Vital Signs Pulse Resp BP Pulse Ox 12/20/20 07:05 82 24 H 99 12/20/20 06:00 86 23 H 138/93 H 90 Medical Necessity - Tobacco Use Smoking Status: Current every day smoker Assessment/Plan All Active Problems (Last Reviewed 12/17/20 @ 18:04 by Christine Harris, TOMÁS-C) Heart failure with preserved ejection fraction (Acute) Acute hypoxic respiratory failure secondary to decompensated HFpEF/ARACELY/OHS/PAH/suspected aspiration -Presented to the emergency department earlier yesterday but left AMA--> that time he is very agitated and verbally abusive to the staff -He represented when he was convinced by a friend to return and have his issues addressed -I suspect his respiratory failure is multifactorial and the result of continued methamphetamine use with hypertension causing a stiff ventricle and recurrent heart failure secondary to flash pulmonary edema as well as untreated sleep apnea, obesity, COPD, and pulmonary artery hypertension -Unasyn day 2 of 5 -Lasix 40 mg IV daily -O2 saturations 99% on 2 L nasal cannula -Urine culture remains pending -Covid test was negative -Patient had a recent echo done in 2 2020 that showed an EF of 55% pulmonary artery systolic pressures of 44 mmHg indicating mild pulmonary artery hypertension, moderate concentric LVH with stage II diastolic dysfunction -No need for repeat echo at this time -Blood pressure control is much improved -BNP was markedly elevated at 439.9 -Nitro drip was discontinued -Appreciate critical care input Acute toxic/metabolic encephalopathy -Continue Precedex and wean as able -As needed Haldol -Suspect multifactorial BRIJESH -Resolved -A.m. creatinine is 0.94 Hypertension -Metoprolol was converted from IV to p.o. by critical care medicine -Continue as needed enalaprilat and add scheduled lisinopril if blood pressure is elevated DM-2 -Appears to be a new diagnosis -Once he is 7.2 with a normal hemoglobin -Diet control -Consider Metformin if pharmacological intervention is required Morbid obesity -Recommend weight loss -Complicates overall prognosis and management Methamphetamine abuse -Tox screen was positive for methamphetamines -I suspect this is contributing to his recurrent issues with heart failure Tobacco abuse -Suggest cessation -Nicotine patch as needed History of bipolar disorder/PTSD -Seroquel has been increased to 200 mg twice daily -We will try to wean Precedex -Crisis consultation I have significant concerns about his psychiatric status -ER on Ativan for severe anxiety/panic disorder DVT prophylaxis -Continue enoxaparin 40 mg twice daily CODE STATUS -DNR CCA no intubation per discussion with admitting physician in the emergency department Inpatient E&M: [id number] [facility] H[facility] L3
[2020-12-20] MEDS: QUEtiapine 100 MG Tablet 200 MG PO ×2 (10:02→20:23)
[2020-12-20] MEDS: Metoprolol Tartrate 25 MG Tablet PO ×2 (12:35→20:23)
[2020-12-20] MEDS: Furosemide 40 MG/4 ML Vial IV (15:35)
[2020-12-20] MEDS: Enoxaparin 40 MG/0.4 ML Syringe SC (20:23)
[2020-12-20] MEDS: Acetaminophen 325 MG Tablet 650 MG PO (23:08)
[2020-12-20 23:21] LABS: Bedside Glucose 157 mg/dL (70-110)
[2020-12-21] VITALS (10 sets, daily range): BP systolic 121–168; BP diastolic 88–127; PULSE 72–118; RESP 16–28; TEMP 36–37; O2SAT 93–97
--- NOTE | 2020-12-21 00:15 | NURSING ---
Patient is being aggressive and is agitated. He has ripped off all his leads, BP cuff and pluse ox and is refusing to let anyone put it back on. He also ripped out his IV. I attempted to place a new one twice but then patient started swinging at me. Dr. Degroot was notified that patient had ripped out IV and had meds changed to route of IM or PO. Patient is not hooked up to monitor but is resting in bed safely with call light within reach. Will continue to monitor and try again to place patient on monitor once patient has calmed down.
[2020-12-21] MEDS: LORazepam 2 MG/ML Syringe 1 MG IV (00:56)
[2020-12-21] MEDS: Amox/Clavulanate 875 MG Tablet PO ×3 (01:44→21:31)
[2020-12-21] MEDS: Ipratropium/Albuterol Sulfate 3 ML AMPUL.NEB INHALATION ×2 (03:00→09:19)
[2020-12-21] MEDS: LORazepam 2 MG/ML Syringe 1 MG IM ×3 (05:30→13:22)
--- NOTE | 2020-12-21 06:32 | PN_ITS ---
Subjective: The patient was seen and examined at the bedside this morning. Events from the last 24 hours have been reviewed. The patient is currently afebrile, hemodynamically stable and maintaining appropriate oxygen saturations on 2 L/min via nasal cannula. The patient ripped out his IV access last night. He continues to refuse therapies. The patient has been successfully weaned from Precedex. He remains on scheduled Seroquel, along with as needed Haldol and Ativan. Objective: The patient's most recent lab work, culture data and imaging studies have all been personally reviewed. Surface echocardiogram from October 2020 revealed moderate concentric LVH with an ejection fraction of 55% and stage II diastolic dysfunction. Pulmonary artery systolic pressure was estimated to be 46 mmHg. General: Alert, No apparent distress HEENT: Atraumatic, Normocephalic Oral: No Gingival or Mucosal Lesions/ Ulcerations Neck: Supple, No Nodes, Trachea Midline Lungs: No rhonchi, No wheeze, No rales, Diminished Cardiovascular: Regular rate, Regular Rhythm Abdomen: Bowel Sounds Present, Soft, Non Tender, Obese Extremities: No clubbing, No cyanosis, No edema Skin: No breakdown Musculoskeletal: No Tenderness to Palpation of Joints or Extremities Lymphatic: No Cervical, Supraclavicular, or Inguinal Adenopathy Neurological: Cranial nerves II-XII grossly intact, Neuro grossly intact Psych/Mental Status: Impulsive, Restless Vital Signs Temp Pulse Resp BP Pulse Ox 98.6 F 72 16 159/89 H 94 12/21/20 04:00 12/21/20 04:00 12/21/20 04:00 12/21/20 04:00 12/21/20 04:00 Oxygen Flow Rate (L/min) 2 Oxygen Delivery Method Nasal Cannula Weight: 405 lb 13.936 oz Body Mass Index (BMI) 53.8 Intake and Output for Last 24 Hours 12/19/20 12/20/20 12/21/20 23:59 23:59 23:59 Intake Total 3666.20 / 4051.50 5082.50 / 5202.50 350 / 350 Output Total 3525 / 4075 5425 / 5575 350 / 350 Balance 141.20 / -23.50 -342.50 / -372.50 0 / 0 Labs (Last 48 Hours) 12/19/20 12/19/20 12/19/20 07:59 11:08 16:34 WBC RBC Hgb Hct MCV MCH MCHC RDW Std Deviation RDW Coeff of Funmilayo Plt Count MPV Immature Gran % (Auto) Neut % (Auto) Lymph % (Auto) [place] % (Auto) Eos % (Auto) Baso % (Auto) Absolute Neuts (auto) Absolute Lymphs (auto) Nucleated RBC % Sodium Potassium Chloride Carbon Dioxide Anion Gap BUN Creatinine Estim Creat Clear Calc Est GFR (MDRD) Af Amer Est GFR (MDRD) Non-Af BUN/Creatinine Ratio Glucose Hemoglobin A1c Calcium Total Bilirubin AST ALT Alkaline Phosphatase Total Protein Albumin Globulin Albumin/Globulin Ratio POC Glucose 144 H 165 H 149 H 12/19/20 12/20/20 12/20/20 22:13 04:45 04:45 WBC 13.3 H RBC 5.92 Hgb 14.9 Hct 49.2 MCV 83.1 MCH 25.2 L MCHC 30.3 L RDW Std Deviation 46.0 H RDW Coeff of Funmilayo 15.2 H Plt Count 272 MPV 10.2 Immature Gran % (Auto) 0.500 Neut % (Auto) 70.9 H Lymph % (Auto) 18.9 L [place] % (Auto) 9.3 Eos % (Auto) 0.0 Baso % (Auto) 0.4 Absolute Neuts (auto) 9.4 H Absolute Lymphs (auto) 2.51 Nucleated RBC % 0 Sodium 137 Potassium 4.2 Chloride 103 Carbon Dioxide 29.0 Anion Gap 5 BUN 30 H Creatinine 0.94 Estim Creat Clear Calc 116.95 Est GFR (MDRD) Af Amer 116 Est GFR (MDRD) Non-Af 96 BUN/Creatinine Ratio 32.1 H Glucose 156 H Hemoglobin A1c Calcium 8.1 L Total Bilirubin 1.10 H AST 32 ALT 28 Alkaline Phosphatase 63 Total Protein 6.6 Albumin 2.8 L Globulin 3.8 Albumin/Globulin Ratio 0.7 L POC Glucose 149 H 12/20/20 12/20/20 12/20/20 04:45 04:57 06:46 WBC RBC Hgb Hct MCV MCH MCHC RDW Std Deviation RDW Coeff of Funmilayo Plt Count MPV Immature Gran % (Auto) Neut % (Auto) Lymph % (Auto) [place] % (Auto) Eos % (Auto) Baso % (Auto) Absolute Neuts (auto) Absolute Lymphs (auto) Nucleated RBC % Sodium Potassium Chloride Carbon Dioxide Anion Gap BUN Creatinine Estim Creat Clear Calc Est GFR (MDRD) Af Amer Est GFR (MDRD) Non-Af BUN/Creatinine Ratio Glucose Hemoglobin A1c 7.2 H Calcium Total Bilirubin AST ALT Alkaline Phosphatase Total Protein Albumin Globulin Albumin/Globulin Ratio POC Glucose 150 H 151 H 12/20/20 20:44 WBC RBC Hgb Hct MCV MCH MCHC RDW Std Deviation RDW Coeff of Funmilayo Plt Count MPV Immature Gran % (Auto) Neut % (Auto) Lymph % (Auto) [place] % (Auto) Eos % (Auto) Baso % (Auto) Absolute Neuts (auto) Absolute Lymphs (auto) Nucleated RBC % Sodium Potassium Chloride Carbon Dioxide Anion Gap BUN Creatinine Estim Creat Clear Calc Est GFR (MDRD) Af Amer Est GFR (MDRD) Non-Af BUN/Creatinine Ratio Glucose Hemoglobin A1c Calcium Total Bilirubin AST ALT Alkaline Phosphatase Total Protein Albumin Globulin Albumin/Globulin Ratio POC Glucose 157 H Microbiology 12/19/20 09:50 Urine Catheter - Catheter Urine Culture - Preliminary Culture exhibits no growth. Clinical Impression(s) from Imaging Studies Chest X-Ray 12/17/20 16:30 IMPRESSION: Poor inspiration with some bibasilar atelectasis. Electronically Signed: Puneet Perez MD at 16:48 EDT Tel , Service support , Medical Necessity - Tobacco Use Smoking Status: Current every day smoker Assessment/Plan All Active Problems (Last Reviewed 12/17/20 @ 18:04 by Christine Harris, BEEF CATTLE GRAZIER-C) Heart failure with preserved ejection fraction (Acute) RECOMMENDATIONS: 1. Continue scheduled Seroquel and as needed Haldol. 2. BiPAP can be utilized if the patient is agreeable. 3. Continue empiric antimicrobials to complete 7-day treatment course. 4. Continue diuretic therapy as tolerated by hemodynamics and renal function. 5. Crisis evaluation today. IMPRESSIONS: 1. Acute hypoxemic respiratory failure Likely multifactorial in etiology. The patient does have a history of heart failure with preserved ejection fraction and I strongly suspect that his profound hypertension on presentation may have contributed to a component of flash pulmonary edema. The patient will be continued on supplemental oxygen and noninvasive positive pressure ventilatory support as needed to maintain saturations at or above 90%. Plan to continue Lasix as tolerated by hemodynamics and renal function. 2. Hypertensive urgency Resolved. Suspect that elevated pressures at presentation may have been secondary to recent methamphetamine use. Plan to continue current medication regimen. 3. Acute kidney injury Improved. Likely prerenal in etiology and related to a component of overdiuresis. Frequency of diuretics have been decreased. Continue to monitor urine output. No current indication for renal replacement therapy. 4. Encephalopathy The patient does have underlying psychiatric/behavioral issues combined with a history of substance dependency. The patient was started on Seroquel, which will be continued along with as needed Haldol. There is a crisis evaluation pending for today. 5. History of bipolar disorder/PTSD/methamphetamine use/tobacco dependency/questionable obstructive sleep apnea Complicates care, management, recovery and prognosis. Continue supportive measures as noted above. Continue nicotine replacement therapy. This note was generated with [employer] dictation software. It may contain incorrect words, spelling, and punctuation that were not noted in checking the note before signing. Inpatient E&M: 17903 Subs Hosp L2
[2020-12-21] MEDS: Haloperidol Lactate 5 MG/ML Vial 2.5 MG IM (08:44)
[2020-12-21] MEDS: Metoprolol Tartrate 25 MG Tablet PO (08:52)
[2020-12-21] MEDS: QUEtiapine 100 MG Tablet 200 MG PO (08:52)
[2020-12-21] MEDS: Enoxaparin 40 MG/0.4 ML Syringe SC ×2 (08:53→21:31)
[2020-12-21] MEDS: Insulin Lispro 100 UNIT/ML INSULN.PEN SC ×3 (09:07→21:31)
[2020-12-21 09:25] LABS: Bedside Glucose 173 mg/dL (70-110)
--- NOTE | 2020-12-21 09:33 | PCM.PN.HOSP ---
Patient Problems: Active and Suspected Problems (Last Reviewed 12/17/20 @ 18:04 by Christine Harris, HIRED HAND-C) Heart failure with preserved ejection fraction (Acute) Subjective: Mr. Urbano is lying in bed presently has refused therapies intermittently overnight and has pulled out his IVs, pulled off his telemetry, and is refusing to wear nasal cannula intermittently. He is now off Precedex and received 1 dose of IM Haldol overnight. Overall his agitation is markedly improved. He continues to have episodes of agitation and panic. Crisis has been called and will evaluate the patient later today for further psychiatric needs. Vitals/I&O's: Vital Signs Temp Pulse Resp BP Pulse Ox 97.3 F L 110 H 20 H 121/90 H 94 12/21/20 08:49 12/21/20 08:52 12/21/20 08:49 12/21/20 08:49 12/21/20 08:49 Oxygen Flow Rate (L/min) 2 Oxygen Delivery Method Nasal Cannula Weight: 184.1 kg Body Mass Index (BMI) 53.8 Intake and Output for Last 24 Hours 12/19/20 12/20/20 12/21/20 23:59 23:59 23:59 Intake Total 3666.20 / 4051.50 5082.50 / 5202.50 350 / 350 Output Total 3525 / 4075 5425 / 5575 350 / 350 Balance 141.20 / -23.50 -342.50 / -372.50 0 / 0 General: Alert, Well developed, Well nourished, - - Morbidly obese middle-aged white male lying in bed in left side-lying, he has ripped off his telemetry leads and his oxygen, is difficult to understand at times because he mumbles HEENT: Atraumatic, PERRLA, EOMI, Normocephalic, EAC Clear Oral: Moist Mucosa, No Gingival or Mucosal Lesions/ Ulcerations, - - Short thick neck Neck: Supple, Trachea Midline Lungs: No rhonchi, No wheeze, No rales, Diminished - Diffusely Cardiovascular: Regular rate, Regular Rhythm, Normal S1, Normal S2, No murmurs, No Ectopic Activity, No rub noted, No Gallop, - - Distant secondary to body habitus Abdomen: Bowel Sounds Present, Soft, Non Tender, Non-Distended, Obese Extremities: No clubbing, No cyanosis, No edema, Capillary Refill Less than 3 Seconds, Peripheral Pulses Normal Skin: No rashes, No breakdown, - - Multiple tattoos Musculoskeletal: No Tenderness to Palpation of Joints or Extremities, No Muscle Wasting Neurological: Cranial nerves II-XII grossly intact, Neuro grossly intact, Muscle tone normal, Coordination normal, - - All extremities move symmetrically without any sign of weakness Psych/Mental Status: Anxious, Impulsive, Restless Microbiology Past 72 Hours 12/19/20 09:50 Urine Catheter - Catheter Urine Culture - Preliminary Culture exhibits no growth. Laboratory Results 12/20/20 20:44: POC Glucose 157 H 12/21/20 09:07: POC Glucose 173 H Current Medications Acetaminophen (Acetaminophen 325 Mg Tablet) 650 mg PO Q6H PRN PRN PRN Reason: Pain Score 1-10/Temp > 100.7 F Last Admin: 12/20/20 23:08 Dose: 650 mg Documented by: Albuterol Sulfate (Albuterol 2.5 Mg/3 Ml Vial.Neb.) 2.5 mg INHALATION Q2H PRN PRN PRN Reason: SHORTNESS OF BREATH Albuterol/Ipratropium (Ipratropium/Albuterol Sulfate 3 Ml Ampul.Neb) 3 ml INHALATION Q4H.RT [facility] Last Admin: 12/21/20 09:19 Dose: 3 ml Documented by: Amoxicillin/Clavulanate Potassium (Amox/Clavulanate 875 Mg Tablet) 875 mg PO BID [facility] Last Admin: 12/21/20 08:52 Dose: 875 mg Documented by: Docusate Sodium (Docusate Sodium 100 Mg Capsule) 100 mg PO BID PRN PRN PRN Reason: Constipation Enalaprilat (Enalaprilat 1.25 Mg/Ml Vial) 0.625 mg IV Q6 PRN PRN Reason: SBP > 160 Enoxaparin Sodium (Enoxaparin 40 Mg/0.4 Ml Syringe) 40 mg SC BID [facility] Last Admin: 12/21/20 08:53 Dose: 40 mg Documented by: Furosemide (Furosemide 40 Mg/4 Ml Vial) 40 mg IV DAILY [facility] Last Admin: 12/20/20 15:35 Dose: 40 mg Documented by: Haloperidol Lactate (Haloperidol Lactate 5 Mg/Ml Vial) 2.5 mg IM Q6H PRN PRN PRN Reason: agitation Last Admin: 12/21/20 08:44 Dose: 2.5 mg Documented by: Sodium Chloride () 250 mls @ 15 mls/hr IV .[id number] PRN PRN Reason: Saline Flush Last Infusion: 12/20/20 20:31 Dose: Infused Documented by: Sodium Chloride () 250 mls @ 15 mls/hr IV .[id number] PRN PRN Reason: Additional IVPB Infusion Insulin Human Lispro (Insulin Lispro 100 Unit/Ml Insuln.Pen) 0 unit SC ACHS [facility]; Protocol Last Admin: 12/21/20 09:07 Dose: 2 u Documented by: Labetalol HCl (Labetalol (Prefilled) 20 Mg/4 Ml) 20 mg IV Q6H PRN PRN Reason: SBP GREATER THAN 180 Last Admin: 12/17/20 18:54 Dose: 20 mg Documented by: Lorazepam (Lorazepam 2 Mg/Ml Syringe) 1 mg IM Q4H PRN PRN PRN Reason: ANXIETY/AGITATION Last Admin: 12/21/20 05:30 Dose: 1 mg Documented by: Metoprolol Tartrate (Metoprolol Tartrate 25 Mg Tablet) 25 mg PO BID [facility] Last Admin: 12/21/20 08:52 Dose: 25 mg Documented by: Nicotine (Nicotine 21 Mg Patch) 21 mg TD DAILY [facility] Last Admin: 12/21/20 08:52 Dose: 21 mg Documented by: Quetiapine Fumarate (Quetiapine 100 Mg Tablet) 200 mg PO BID [facility] Last Admin: 12/21/20 08:52 Dose: 200 mg Documented by: Sodium Chloride (0.9% Saline Lock 10 Ml Syringe) 10 - 40 ml IV UD PRN PRN Reason: SALINE FLUSH Last Admin: 12/20/20 16:43 Dose: 10 ml Documented by: STROKE Vital Signs/Narrative: Vital Signs Temp Pulse Resp BP Pulse Ox 12/21/20 08:52 110 H 12/21/20 08:49 97.3 F L 110 H 20 H 121/90 H 94 Medical Necessity - Tobacco Use Smoking Status: Current every day smoker Assessment/Plan All Active Problems (Last Reviewed 12/17/20 @ 18:04 by Christine Harris NP-C) Heart failure with preserved ejection fraction (Acute) cute hypoxic respiratory failure secondary to decompensated HFpEF/ARACELY/OHS/PAH/suspected aspiration -Presented to the emergency department earlier 12/17/2020 but left AMA--> that time he is very agitated and verbally abusive to the staff -He re-presented when he was convinced by a friend to return and have his issues addressed -I suspect his respiratory failure is multifactorial and the result of continued methamphetamine use with hypertension causing a stiff ventricle from market hypertension and recurrent heart failure secondary to flash pulmonary edema as well as untreated sleep apnea, obesity, COPD, and pulmonary artery hypertension -Unasyn was converted to Augmentin as IV access is no longer available secondary to patient self removal -Day 3 of 7 for antibiotics -Convert Lasix from 40 mg IV push daily to 40 mg p.o. twice daily -O2 saturations 94% on 2 L nasal cannula -The patient is intermittently pulling off his nasal cannula and refusing to wear this -Urine culture negative -Covid test was negative -Patient had a recent echo done in 10/2020 that showed an EF of 55% pulmonary artery systolic pressures of 44 mmHg indicating mild pulmonary artery hypertension, moderate concentric LVH with stage II diastolic dysfunction -Appreciate critical care input Acute toxic/metabolic encephalopathy -Has been off Precedex now for 16 hours -Continue as needed Haldol IM -Continue Seroquel 200 mg twice daily -Suspect multifactorial BRIJESH -Resolved -Patient refused a.m. lab we will try to obtain either later today or tomorrow morning Hypertension -Continue metoprolol but increase to 50 twice daily -DC as needed IV medications the patient no longer has IV access due to self removal New DM-2 -Hemoglobin A1c is 7.2 with a normal hemoglobin -Diet control--> diet was switched to carb control yesterday 12/20/2020 -Consider Metformin if pharmacological intervention is required -Need for pharmacological intervention Morbid obesity -Recommend weight loss -Complicates overall prognosis and management Methamphetamine abuse -Tox screen was positive for methamphetamines -I suspect this is contributing to his recurrent issues with heart failure -Recommend cessation -Need psychiatric disorder addressed first Tobacco abuse -Suggest cessation -Nicotine patch as needed History of bipolar disorder/PTSD -Continue Seroquel 200 mg twice daily -Patient has been off Precedex for approximately 16 hours and having intermittent agitation but overall has been calm -Did receive 1 dose of as needed Haldol overnight -Continue as needed Ativan -This was switched to IM as the patient has pulled out his IVs -Crisis has been called and will evaluate the patient later today DVT prophylaxis -Continue enoxaparin 40 mg twice daily CODE STATUS -DNR CCA no intubation per discussion with admitting physician in the emergency department Inpatient E&M: [id number] [facility] [[email or web address]] Hosp L3
--- NOTE | 2020-12-21 10:20 | CASEMGMT ---
Addendum entered by Maricel Lambert 12/21/20 11:50: Social Work Pt was seen by Crisis who states they will work on psychiatric placement for pt and notify staff when they have an accepting facility. ADIEL Anderson Original Note: Social Work SW placed call to [facility] at Crisis and referral made. SW requested Crisis make face to face visit with pt today. Clinical information faxed. [facility] states pt will be seen today. Nursing updated. ADIEL Anderson
[2020-12-21] MEDS: Metoprolol Tartrate 50 MG Tablet PO ×2 (10:45→21:30)
[2020-12-21] MEDS: Furosemide 40 MG Tablet PO ×2 (10:46→16:54)
[2020-12-21 12:25] LABS: Bedside Glucose 148 mg/dL (70-110)
--- NOTE | 2020-12-21 12:59 | PCM.HOSP.N ---
Hospitalist Note Mr. Urbano was seen by crisis and they agree that placement would be most appropriate. He continues to have periods of panic and aggression. [place] slip will be filled out. Crisis is currently working on placement.
--- NOTE | 2020-12-21 14:49 | CASEMGMT ---
SHAUNA GALLEGOS NOTE: Call received from Penny @ [facility]. She states they have received a referral for placement, but they are unable to review pt for placement until he has been out of ICU status for 24-hrs. She was made aware pt remains in the ICU unit, but level of care was changed from ICU status to standard this AM @ 0753. She requests that updated clinical information be faxed to them tomorrow AM @ 0800 and they will be able to process referral at that time to determine if they are able to accept pt at that time. She requests the following information be faxed: Updated notes since last in ICU status and while in standard status, most recent labs, VS's, and EKG, COVID status, if pt is requiring any chemical restraints or sedatives, Drug screen, tox screen, and urinalysis. [facility]: PH: [phone] . Penny was provided w/RANULFO's # that is scheduled tomorrow/Sat. RANULFO Connelly, updated on the above information. Supa PULIDO RN, CM
[2020-12-21] MEDS: clonazePAM 1 MG Tablet PO ×2 (15:27→21:30)
[2020-12-21] MEDS: Haloperidol Lactate 5 MG/ML Vial IM ×3 (15:27→21:30)
--- NOTE | 2020-12-21 15:36 | PCM.HOSP.N ---
Hospitalist Note Called by nursing staff as the patient stated he had something private that he wanted to discuss with me. Upon my arrival and with nursing staff present he informed me that he wanted to leave AGAINST MEDICAL ADVICE. I informed him that he was not able to leave AGAINST MEDICAL ADVICE at this time because he has been pink slipped and needs further psychiatric intervention. At that time he stated if I lose my house I am going to come after you and get you, bitch. At that time I informed if you take to have a civil conversation I had be happy to come back but if he was going to continue to treat me that way at this time I was going to remove myself from the room. Nursing staff was present for the entire conversation. After I left the room he started beating the side of his bed. At this time he remains off drips and out of restraints, but has continued agitation. Adjustments were made to his medication regimen by increasing his Seroquel to 300 mg twice a day, increasing his Haldol, and adding Klonopin 1 mg 3 times daily. EKG will be assessed in the morning for QTC prolongation. We continue to await placement with crisis.
--- NOTE | 2020-12-21 16:09 | CASEMGMT ---
Social Work SW spoke with Yareli at Crisis who confirms referral has been sent to [facility] and states they will reassess pt tomorrow for admission. Nursing and physician updated. ADIEL Anderson
[2020-12-21 17:05] LABS: Bedside Glucose 189 mg/dL (70-110)
[2020-12-21] MEDS: QUEtiapine 100 MG Tablet 300 MG PO (21:30)
[2020-12-21 21:50] LABS: Bedside Glucose 195 mg/dL (70-110)
[2020-12-22] VITALS (8 sets, daily range): BP systolic 121–192; BP diastolic 69–151; PULSE 83–103; RESP 18–24; TEMP 36.6–36.7; O2SAT 93–96
[2020-12-22] MEDS: Haloperidol Lactate 5 MG/ML Vial IM (03:32)
[2020-12-22] MEDS: clonazePAM 1 MG Tablet PO ×4 (03:32→23:52)
--- NOTE | 2020-12-22 05:55 | EKG12_ITS ---
Test Reason : AM EKG Blood Pressure : / mmHG Vent. Rate : 086 BPM Atrial Rate : 086 BPM P-R Int : 190 ms QRS Dur : 126 ms QT Int : 444 ms P-R-T Axes : 024 -32 039 degrees QTc Int : 531 ms Normal sinus rhythm Left axis deviation Non-specific intra-ventricular conduction block Abnormal ECG When compared with ECG of 22-DEC-2020 11:15, MANUAL COMPARISON REQUIRED, DATA IS UNCONFIRMED Confirmed by DAYANARA ALLEN, TIMOTEO ([id number]), editor & co founder NOEMY FRANCISCO ([id number]) on 12/25/2020 10:52:41 AM Referred By: ANNALISA Confirmed By:TIMOTEO NICHOLE MD
[2020-12-22] MEDS: QUEtiapine 100 MG Tablet 300 MG PO ×2 (08:05→22:02)
[2020-12-22] MEDS: Amox/Clavulanate 875 MG Tablet PO ×2 (08:05→20:13)
[2020-12-22] MEDS: Enoxaparin 40 MG/0.4 ML Syringe SC ×2 (08:05→20:13)
[2020-12-22] MEDS: Furosemide 40 MG Tablet PO (08:06)
[2020-12-22] MEDS: Metoprolol Tartrate 50 MG Tablet PO ×2 (08:06→20:12)
[2020-12-22] MEDS: Insulin Lispro 100 UNIT/ML INSULN.PEN SC ×2 (08:24→12:36)
[2020-12-22 08:26] LABS: Bedside Glucose 158 mg/dL (70-110)
--- NOTE | 2020-12-22 09:00 | NURSING ---
Patient refusing to let this RN draw lab work, will attempt again at later time.
--- NOTE | 2020-12-22 10:03 | NURSING ---
Counseling center called to get update on patient transferring to a psychiatric behavioral center. A staff member is supposed to call this RN back.
--- NOTE | 2020-12-22 11:31 | NURSING ---
Addendum entered by Meme Mensah 12/22/20 16:24: During the period of agitation, as described below, the patient also stated to this RN If I lose my dog, I'll kill myself. Dr. Mccormick notified on comments of self harm. Original Note: Patient has been agitated at times today, however has been redirectable for this RN. Patient became more agitated when this RN told him he could not go home and needs to go to a psychiatric facility. The patient became immediately agitated, hit the bed side rail and called this RN a bitch and stated if he loses his house or dog I swear to God. I told the patient that it is this behavior that requires him to be evaluated and get help for his psychiatric disorders. The patient was still anxious but allowed this RN to complete COVID testing and an EKG, but demanded snacks and several cans of pop before this RN could do the tests. The patient seemed to calm down once given the snacks. Per report, the patients behavior overnight was uncooperative and very agitated with nursing staff. Patient was yelling and cussing out the nursing staff, hitting the bedrails, throwing and breaking items in the room. The patient required PRN Haldol and Klonopin for agitation. The patient Seroquel was increased yesterday due to this behavior. While anxious and agitated the patient does become short of breath and asks for his oxygen. Patient is on 2L NC as needed.
[2020-12-22 12:35] LABS: Bedside Glucose 195 mg/dL (70-110)
[2020-12-22] MEDS: Acetaminophen 325 MG Tablet 650 MG PO (12:35)
--- NOTE | 2020-12-22 12:59 | CASEMGMT ---
SOCIAL WORK Case discussed with Lila from Crisis and with nursing. Per Lila, referral has been made to [facility]. Nursing obtained EKG and COVID-test. All requested clinical information faxed to [facility] at this time. Pending review. Lila with Crisis updated. This worker to continue to follow and assist Crisis as needed. Alex Franks, CLAIM ADMINISTRATOR, BARN BOSS
--- NOTE | 2020-12-22 13:53 | CPS ---
STATED TO RN THAT HE WANTED A BREATHING TX, BUT WHEN WENT IN AND ASKED IF HE WANTED A TX HE STATED NO.
--- NOTE | 2020-12-22 14:14 | CM.ED ---
SOCIAL WORK Received call from Vikram with [facility]. Patient declined due to patient's medical needs. Updated Lila with Crisis and patient's nurse, Meme. Lila to continue to work on placement. Alex Franks, ENGINEERING RESEARCH MANAGER, CLINICAL DATA PROGRAMMER
--- NOTE | 2020-12-22 14:45 | CASEMGMT ---
SOCIAL WORK Per Lila with Crisis, referral to be sent to [facility]. Pending review. Alex Franks, LOCK ASSEMBLER, LABOR OPERATOR
--- NOTE | 2020-12-22 16:02 | CASEMGMT ---
SOCIAL WORK Call from [facility], physician has declined patient. Lila with Crisis updated. Per Lila, concerns will be unable to find placement for patient due to medical issues. Lila inquiring if physician would be willing to do doctor to doctor transfer to [facility], [facility], or [facility]. Call to patient's nurse, Meme to update. Meme to discuss with Dr. Mccormick. Alex Franks, PARKING LOT SUPERVISOR, SPACE SYSTEMS OPERATIONS CRAFTSMAN
--- NOTE | 2020-12-22 16:19 | PCM.PN.HOSP ---
Patient Problems: Active and Suspected Problems (Last Reviewed 12/17/20 @ 18:04 by Christine Harris, TOMÁS-C) Heart failure with preserved ejection fraction (Acute) Subjective: Patient would not interact with me today upon exam. Per discussion with nursing staff he told them that he would harm himself if he lost his dog. Again, he told me yesterday that he would come after me if he lost his house. He required 1 dose of as needed Haldol overnight. The increase Seroquel dose seems to have helped some. Patient again refused lab this a.m. Vitals/I&O's: Vital Signs Temp Pulse Resp BP Pulse Ox 98.1 F 83 20 H 152/69 H 95 12/22/20 12:00 12/22/20 12:00 12/22/20 12:00 12/22/20 12:00 12/22/20 12:00 Oxygen Flow Rate (L/min) 2 Oxygen Delivery Method Nasal Cannula Weight: 184.1 kg Body Mass Index (BMI) 53.8 Intake and Output for Last 24 Hours 12/20/20 12/21/20 12/22/20 23:59 23:59 23:59 Intake Total 5082.50 / 5202.50 1430 / 1430 760 / 760 Output Total 5425 / 5575 830 / 830 250 / 250 Balance -342.50 / -372.50 600 / 600 510 / 510 General: Well developed, Well nourished, - - Morbidly obese white male lying on his left side eyes closed and patient refuses to interact with me, uncooperative HEENT: Atraumatic, PERRLA, EOMI, Normocephalic Lungs: Clear to auscultation, Normal air movement, No rhonchi, No wheeze, No rales, - - Does have intermittent upper airway wheeze when he has extreme panic episodes Cardiovascular: Regular rate, Regular Rhythm, Normal S1, Normal S2, No murmurs, No Ectopic Activity, No rub noted, No Gallop Abdomen: Bowel Sounds Present, Soft, Non Tender, Non-Distended, Obese Extremities: No clubbing, No cyanosis, No edema, Capillary Refill Less than 3 Seconds, Peripheral Pulses Normal Skin: No rashes, No breakdown Psych/Mental Status: Homicidal, Impulsive, Irrational Behavior, Restless, - - Remittent panic Microbiology Past 72 Hours 12/22/20 11:20 Mucosa - Nose SARS-CoV-2 Antigen (Rapid) - Final 12/19/20 09:50 Urine Catheter - Catheter Urine Culture - Final Culture exhibits no growth. Laboratory Results 12/21/20 16:52: POC Glucose 189 H 12/21/20 21:29: POC Glucose 195 H 12/22/20 08:21: POC Glucose 158 H 12/22/20 12:24: POC Glucose 195 H Current Medications Acetaminophen (Acetaminophen 325 Mg Tablet) 650 mg PO Q6H PRN PRN PRN Reason: Pain Score 1-10/Temp > 100.7 F Last Admin: 12/22/20 12:35 Dose: 650 mg Documented by: Albuterol Sulfate (Albuterol 2.5 Mg/3 Ml Vial.Neb.) 2.5 mg INHALATION Q2H PRN PRN PRN Reason: SHORTNESS OF BREATH Albuterol/Ipratropium (Ipratropium/Albuterol Sulfate 3 Ml Ampul.Neb) 3 ml INHALATION Q4H.RT [facility] Last Admin: 12/21/20 09:19 Dose: 3 ml Documented by: Amoxicillin/Clavulanate Potassium (Amox/Clavulanate 875 Mg Tablet) 875 mg PO BID [facility] Last Admin: 12/22/20 08:05 Dose: 875 mg Documented by: Clonazepam (Clonazepam 1 Mg Tablet) 1 mg PO Q6H PRN PRN PRN Reason: agitation/anxiety Last Admin: 12/22/20 12:35 Dose: 1 mg Documented by: Docusate Sodium (Docusate Sodium 100 Mg Capsule) 100 mg PO BID PRN PRN PRN Reason: Constipation Enoxaparin Sodium (Enoxaparin 40 Mg/0.4 Ml Syringe) 40 mg SC BID [facility] Last Admin: 12/22/20 08:05 Dose: 40 mg Documented by: Furosemide (Furosemide 40 Mg Tablet) 40 mg PO BID@1000,1800 [facility] Last Admin: 12/22/20 08:06 Dose: 40 mg Documented by: Haloperidol Lactate (Haloperidol Lactate 5 Mg/Ml Vial) 5 mg IM Q6H PRN PRN PRN Reason: agitation Last Admin: 12/22/20 03:32 Dose: 5 mg Documented by: Sodium Chloride () 250 mls @ 15 mls/hr IV .[id number] PRN PRN Reason: Saline Flush Last Infusion: 12/20/20 20:31 Dose: Infused Documented by: Sodium Chloride () 250 mls @ 15 mls/hr IV .[id number] PRN PRN Reason: Additional IVPB Infusion Insulin Human Lispro (Insulin Lispro 100 Unit/Ml Insuln.Pen) 0 unit SC ACHS [facility]; Protocol Last Admin: 12/22/20 12:36 Dose: 2 u Documented by: Labetalol HCl (Labetalol (Prefilled) 20 Mg/4 Ml) 20 mg IV Q6H PRN PRN Reason: SBP GREATER THAN 180 Last Admin: 12/17/20 18:54 Dose: 20 mg Documented by: Metoprolol Tartrate (Metoprolol Tartrate 50 Mg Tablet) 50 mg PO BID [facility] Last Admin: 12/22/20 08:06 Dose: 50 mg Documented by: Nicotine (Nicotine 21 Mg Patch) 21 mg TD DAILY [facility] Last Admin: 12/22/20 08:06 Dose: 21 mg Documented by: Quetiapine Fumarate (Quetiapine 100 Mg Tablet) 300 mg PO BID [facility] Last Admin: 12/22/20 08:05 Dose: 300 mg Documented by: Sodium Chloride (0.9% Saline Lock 10 Ml Syringe) 10 - 40 ml IV UD PRN PRN Reason: SALINE FLUSH Last Admin: 12/20/20 16:43 Dose: 10 ml Documented by: Medical Necessity - Tobacco Use Smoking Status: Current every day smoker Assessment/Plan All Active Problems (Last Reviewed 12/17/20 @ 18:04 by Christine Harris NP-C) Heart failure with preserved ejection fraction (Acute) Acute hypoxic respiratory failure secondary to decompensated HFpEF/ARACELY/OHS/PAH/suspected aspiration -Presented to the emergency department earlier 12/17/2020 but left AMA--> at that time he was very agitated and verbally abusive to the staff -He re-presented when he was convinced by a friend to return and have his issues addressed -I suspect his respiratory failure is multifactorial and the result of continued methamphetamine use with hypertension causing a stiff ventricle from market hypertension and recurrent heart failure secondary to flash pulmonary edema as well as untreated sleep apnea, obesity, COPD, and pulmonary artery hypertension -Augmentin day 4 of 7 -Decrease Lasix to 40 mg daily -Patient is 95% on room air but intermittently states he cannot breathe and is on 2 L nasal cannula with approximately the same oxygen saturation -Urine culture negative -Covid test was negative -Patient had a recent echo done in 10/2020 that showed an EF of 55% pulmonary artery systolic pressures of 44 mmHg indicating mild pulmonary artery hypertension, moderate concentric LVH with stage II diastolic dysfunction Acute toxic/metabolic encephalopathy -Acute issues seem to have been resolved -Patient appears to be at baseline at this time which is very aggressive with intermittent severe panic BRIJESH -Resolved -Patient continues to refuse lab draws Hypertension -Continue metoprolol but increase to 50 twice daily -DC as needed IV medications the patient no longer has IV access due to self removal New DM-2 -Hemoglobin A1c is 7.2 with a normal hemoglobin -Diet control--> diet was switched to carb control 12/20/2020 -Consider Metformin if pharmacological intervention is required -Need for pharmacological intervention Morbid obesity -Recommend weight loss -Complicates overall prognosis and management Methamphetamine abuse -Tox screen was positive for methamphetamines -I suspect this is contributing to his recurrent issues with heart failure -Recommend cessation -Need psychiatric disorder addressed first Tobacco abuse -Suggest cessation -Nicotine patch as needed History of bipolar disorder/PTSD/panic disorder -Continue Seroquel 300 mg twice daily -Continue 1 mg Klonopin every 6 hours -Continue as needed IM Haldol -EKG reveals mildly prolonged QTC at 529 -Avoid Haldol as able -[place]lyn EKG in a.m. -Patient has been denied by to psychiatric facilities at this time I have touch base with the call center at [facility] to see if they would be amenable to take him for admission and I am awaiting callback -Patient threatened to get me yesterday if he loses his house and today he was stated to nursing staff he would commit self-harm if he lost his dog DVT prophylaxis -Continue enoxaparin 40 mg twice daily CODE STATUS -DNR CCA no intubation per discussion with admitting physician in the emergency department Inpatient E&M: 17563 Subs Hosp L2
--- NOTE | 2020-12-22 17:07 | NURSING ---
Patient refused accucheck before eating dinner
--- NOTE | 2020-12-22 17:38 | NURSING ---
Patient called this RN into room and wanted anxiety medication and activities stating I have nothing to do, Im going crazy in this room. This RN gave patient several activities and was starting to give him medication. Patient then became agitated with this RN and pushed his table into the counter, cussing several times stating he wants to go home. This RN explained to the patient that I will leave the room if he behaves this way or he can be calm and take his medication. The patient stated just give me the pill. This RN gave the patient his medication and left the room. Patient then proceeded to yell in room. NA Guzman called to speak to patient.
--- NOTE | 2020-12-22 17:49 | CASEMGMT ---
SOCIAL WORK Call from nurseMeme. Patient declined by [facility]. Call to Crisis to update. Awaiting call back. Alex Franks, UNDERCOLLAR MAKER, DIRT BIKE RACER
--- NOTE | 2020-12-22 18:00 | CASEMGMT ---
SOCIAL WORK Call from Yareli with Crisis. Per Yareli, plan to refer to [facility]. Alex Franks, CLOTH HAND, MASS SPECTROMETRY MANAGER
--- NOTE | 2020-12-22 19:09 | CM.ED ---
SOCIAL WORK Call from Yareli with Crisis. Per Yareli [facility] requesting facesheet and EKG. Yareli states these are not in packet she was provided from previous munitions factory worker. Requested information faxed to [facility] by this worker. Alex Franks, PROGRESSIVE DIE MAKER, SUPERVISOR BIT AND SHANK DEPARTMENT
[2020-12-22 20:21] LABS: Bedside Glucose 122 mg/dL (70-110)
[2020-12-22] MEDS: Albuterol 2.5 MG/3 ML VIAL.NEB. INHALATION (21:41)
--- NOTE | 2020-12-23 01:14 | NURSING ---
Pt is throwing items in the room at this time and refusing to have his vital signs taken and or an assessment preformed on him at this time. Dr Degroot is aware and said it is okay to let him be until later in the morning.
[2020-12-23 04:59] VITALS: PULSE 84; RESP 24
[2020-12-23] MEDS: Albuterol 2.5 MG/3 ML VIAL.NEB. INHALATION (04:59)
[2020-12-23 05:01] VITALS: BP 148/109; PULSE 87; RESP 18; TEMP 36.6; O2SAT 94
--- NOTE | 2020-12-23 06:00 | EKG12_ITS ---
Test Reason : [facility] Blood Pressure : / mmHG Vent. Rate : 093 BPM Atrial Rate : 093 BPM P-R Int : 188 ms QRS Dur : 124 ms QT Int : 426 ms P-R-T Axes : 016 -31 043 degrees QTc Int : 529 ms Normal sinus rhythm Left axis deviation Abnormal ECG When compared with ECG of 18-DEC-2020 03:10, T wave inversion no longer evident in Anterior leads Confirmed by DAYANARA ALLEN, TIMOTEO ([id number]), assistant production editor NOEMY FRANCISCO ([id number]) on 12/25/2020 10:57:59 AM Referred By: DENISE Confirmed By:TIMOTEO NICHOLE MD
[2020-12-23] MEDS: clonazePAM 1 MG Tablet PO (06:52)
[2020-12-23] MEDS: Haloperidol Lactate 5 MG/ML Vial IM (07:49)
[2020-12-23 07:59] VITALS: BP 170/105; PULSE 86; RESP 20; TEMP 35.7; O2SAT 99
[2020-12-23] MEDS: QUEtiapine 100 MG Tablet 300 MG PO (09:26)
[2020-12-23] MEDS: Furosemide 40 MG Tablet PO (09:26)
[2020-12-23 09:27] VITALS: PULSE 90
[2020-12-23] MEDS: Metoprolol Tartrate 50 MG Tablet PO (09:27)
--- NOTE | 2020-12-23 11:00 | NURSING ---
Patient called this RN into the room, requesting medication for his headache. This RN told the patient he could have Tylenol. The patient then asked again if he could go home. This RN again explained to the patient that he can not go home. The patient immediately became agitated and aggressive, threw his cup at this RN and started kicking the bed rail. This RN told the patient he needs to stop acting aggressively and throwing items, that this RN will not come back in the room with his medication until he can calm down. This RN also removed the fan from his room, stating to patient the fan is being removed since he will not stop throwing items. The patient then slammed his bedside table into the door. This RN requested security to be called, as patient started to come out of his room and walk down the hallway. Security came to unit and the patient was able to be deescalated and patient went back into his room.
[2020-12-23 12:45] LABS: Bedside Glucose 144 mg/dL (70-110)
--- NOTE | 2020-12-23 14:52 | DCINST_ITS ---
- Discharge Diagnoses Current Active Problems: Current Active and Chronic Problems (Last Reviewed 12/17/20 @ 18:04 by Christine Harris NP-Gisselle) Obstructive sleep apnea (Chronic) Bipolar II disorder (Chronic) Heart failure with preserved ejection fraction (Acute) Methamphetamine abuse (Chronic) Nicotine dependence (Chronic) Morbid obesity (Chronic) HTN (hypertension) (Chronic) You will use the following diet at home:: Calorie/Carbohydrate Controlled (specify 1200, 1400, etc), Cardiac Your food should be the consistency of: Regular Your liquids should be the consistency of: Regular/Thin Discharge Activity: Return to Normal Activity, No Restrictions Allergies/Adverse Reactions: Allergies cephalexin [From Keflex] Adverse Reaction (Verified 12/17/20 13:54) Vomiting divalproex sodium [From Depakote] Adverse Reaction (Verified 12/17/20 13:54) dizzy ketorolac [From Toradol] Adverse Reaction (Verified 12/17/20 13:54) Other twitch Opioids - Morphine Analogues Adverse Reaction (Verified 12/17/20 13:54) irritable topiramate Adverse Reaction (Verified 12/17/20 13:54) Unknown varenicline [From Chantix] Adverse Reaction (Verified 12/17/20 13:54) irritation zolpidem Adverse Reaction (Verified 12/17/20 13:54) sleepwalking Medications to take at Discharge Sumatriptan Succinate [Imitrex] 100 mg PO .X1 PRN 06/21/18 Metoprolol Tartrate [Lopressor (beta micah)] 50 mg PO BID 09/13/19 Gabapentin 600 mg PO BID 09/29/19 Clonidine HCl 0.1 mg PO BID 12/21/20 [place] Carbonate [[place] Carbonate ER] 300 mg PO QHS 12/21/20 Primary Care Physician: Abiel Marin DO [Primary Care Provider] - Please follow up with your Primary Care Physician in: 1-2 WEEKS Test Results: Test results from this visit will be discussed in further detail at your follow- up appointment, if applicable. Please Follow Up With: 180 When: jonathon When: PSYCHIATIRST Please Follow Up With: 1 WEEK
--- NOTE | 2020-12-23 14:55 | DS.PCM_ITS ---
Discharge Date and Diagnosis - Problem List Patient Problems: Active and Suspected Problems (Last Reviewed 12/17/20 @ 18:04 by MARKO Graham) Heart failure with preserved ejection fraction (Acute) Date of Admission: 12/17/20 Date of Discharge: 12/23/20 - Primary Discharge Diagnosis Acute Problems: Active Problems (Last Reviewed 12/17/20 @ 18:04 by MARKO Graham) Heart failure with preserved ejection fraction (Acute) - Secondary Discharge Diagnosis Chronic Problems: Chronic Problems (Last Reviewed 12/17/20 @ 18:04 by MARKO Graham) Obstructive sleep apnea (Chronic) Bipolar II disorder (Chronic) Methamphetamine abuse (Chronic) Nicotine dependence (Chronic) Morbid obesity (Chronic) Rapid palpitations (Chronic) HTN (hypertension) (Chronic) SVT (supraventricular tachycardia) (Chronic) Aortic root dilatation (Chronic) Hospital Course and Treatment Imaging Results: STUDY: X-RAY CHEST REASON FOR EXAM: Male, 40 years old. SOB TECHNIQUE: Single AP portable view of the chest. COMPARISON: FINDINGS: Poor inspiration with some bibasilar atelectasis. There is no demonstrated pleural abnormality. There is moderate cardiac enlargement. Normal mediastinum and devi. Normal visualized pulmonary arteries. Normal visualized aortic arch and descending thoracic aorta. Normal visualized thoracic spine. Normal visualized ribs, clavicles, and shoulders. There is no demonstrated abnormality of the visualized soft tissue structures of the upper abdomen. RAD/Chest 1 View (Portable) IMPRESSION: Poor inspiration with some bibasilar atelectasis. Critical care/pulmonary Operations: None Summary of Care Provided: Mr. Urbano is a 40 year old WM who presented to the emergency department at [facility] on 12/17/2020 complaining of shortness of breath and chest pain. He had presented earlier that day complaining of the same thing but left against medical advice. Approximately 1 hour after leaving SIDE[place] the patien t's friend was able to convince him to come back to the severity of his symptoms. In the emergency department he was combative during both of his visits he received Geodon and after his initial presentation became fairly drowsy after that. He was admitted to the intensive care unit for shortness of breath chest pain, and hypertensive emergency. His BNP and troponin were elevated on admission. He was initiated on Lasix 40 mg twice daily. A repeat echo was not performed at this admission because he had a recent echo in October 2020 that demonstrated normal ejection fraction with mild pulmonary hypertension having RVSP of 46 mmHg and stage II diastolic dysfunction. He also has marked history of tobacco abuse and may have a component of COPD although he is never had PFTs. He also has ARACELY. He had to be placed on a Precedex drip during his hospitalization for his extreme agitation to enable us to help him with his respiratory status. Once he was able to be weaned to nasal cannula and off of BiPAP we were able to wean his Precedex drip and we initiated Seroquel. His med reconciliation indicates that he is on lithium at baseline but we were unable to verify these medications during his hospitalization. He was diuresed and eventually was able to be weaned to room air with oxygen saturations from 95 to 99% although he did have periods of severe anxiety in which he would wear his oxygen for comfort but this was not medically needed. He had a mildly elevated white count given his mental status and his need for sedation there was concern about aspiration pneumonia and he was initiated on Unasyn which was then switched to Augmentin. A prescription for Augmentin was given to the patient at discharge she has 2 more days until he completes antibiotics. A hemoglobin A1c was obtained because of fasting blood sugar elevations and was noted to be 7.2 which is consistent with diabetes. He was placed on a diabetic carb controlled diet but no new medication was started at this point. Metformin may be beneficial if a pharmacological intervention is required. Based on his severe mood issues that consisted of combativeness, outward violence, and verbal abuse to staff crisis was consulted and initially felt the placement may be beneficial for him but upon reevaluation on 12/23/2020 stated he could go home and follow-up with 180 for his methamphetamine abuse and with his psychiatrist. His home medications were reinitiated and as stated a prescription for Augmentin was sent to his pharmacy. I believe that predominantly his respiratory issues are related to his use of methamphetamines which cause an hypertensive emergency and therefore result in heart failure as a manifestation of decreased left ventricular compliance secondary to ventricular wall stiffness. He is to follow-up with his primary care physician in 1 week. Discharge diagnoses Acute hypoxic respiratory failure secondary to decompensated HFpEF/ARACELY/OHS/PAH/suspected aspiration pneumonia Acute toxic/metabolic encephalopathy-resolved BRIJESH-resolved Hypertension Omegragw-1-dbh diagnosis -A1c 7.2 Methamphetamine abuse-recurrent ARACELY Pulmonary artery hypertension Tobacco abuse Bipolar disorder PTSD Panic disorder Discharge time greater than 35 minutes Patient Problems: Active and Suspected Problems (Last Reviewed 12/17/20 @ 18:04 by Christine Harris , TOMÁS-C) Heart failure with preserved ejection fraction (Acute) Subjective: Patient is unwilling to communicate with me today. - Physical Exam Vitals/I&O's: Vital Signs Temp Pulse Resp BP Pulse Ox 96.2 F L 90 20 H 170/105 H 99 12/23/20 07:59 12/23/20 09:27 12/23/20 07:59 12/23/20 07:59 12/23/20 07:59 Oxygen Flow Rate (L/min) 2 Oxygen Delivery Method Nasal Cannula Weight: 184.1 kg Body Mass Index (BMI) 53.8 Intake and Output for Last 24 Hours 12/21/20 12/22/20 12/23/20 23:59 23:59 23:59 Intake Total 1430 / 1430 760 / 760 Output Total 830 / 830 250 / 250 Balance 600 / 600 510 / 510 General: Alert, No apparent distress, Well developed, Well nourished, - - morbidly obese white male lying on right side with eyes open HEENT: Atraumatic, PERRLA, EOMI, Normocephalic, EAC Clear Oral: Moist Mucosa, No Gingival or Mucosal Lesions/ Ulcerations, - - Mallampati 3-4, no thrush Neck: Supple, Trachea Midline, - - Thick neck Lungs: Clear to auscultation, No rhonchi, No wheeze, No rales, Diminished - Diffusely, - - Distant secondary to body habitus, intermittent upper airway wheeze with anxiety Cardiovascular: Regular rate, Regular Rhythm, Normal S1, Normal S2, No murmurs, No Ectopic Activity, No rub noted, No Gallop Abdomen: Bowel Sounds Present, Soft, Non Tender, Non-Distended, Obese Extremities: No clubbing, No cyanosis, No edema, Capillary Refill Less than 3 Seconds, Peripheral Pulses Normal Skin: No rashes, No breakdown, - - Pale, multiple tattoos Musculoskeletal: No Tenderness to Palpation of Joints or Extremities, No Muscle Wasting Neurological: Cranial nerves II-XII grossly intact, Neuro grossly intact Psych/Mental Status: Normal Affect, Appropriate Microbiology Past 72 Hours 12/22/20 11:20 Mucosa - Nose SARS-CoV-2 Antigen (Rapid) - Final 12/19/20 09:50 Urine Catheter - Catheter Urine Culture - Final Culture exhibits no growth. Laboratory Results 12/22/20 20:17: POC Glucose 122 H 12/23/20 12:41: POC Glucose 144 H Current Medications Acetaminophen (Acetaminophen 325 Mg Tablet) 650 mg PO Q6H PRN PRN PRN Reason: Pain Score 1-10/Temp > 100.7 F Last Admin: 12/22/20 12:35 Dose: 650 mg Documented by: Albuterol Sulfate (Albuterol 2.5 Mg/3 Ml Vial.Neb.) 2.5 mg INHALATION Q2H PRN PRN PRN Reason: SHORTNESS OF BREATH Last Admin: 12/23/20 04:59 Dose: 2.5 mg Documented by: Albuterol/Ipratropium (Ipratropium/Albuterol Sulfate 3 Ml Ampul.Neb) 3 ml INHALATION Q4H.RT [facility] Last Admin: 12/21/20 09:19 Dose: 3 ml Documented by: Clonazepam (Clonazepam 1 Mg Tablet) 1 mg PO Q6H PRN PRN PRN Reason: agitation/anxiety Last Admin: 12/23/20 06:52 Dose: 1 mg Documented by: Docusate Sodium (Docusate Sodium 100 Mg Capsule) 100 mg PO BID PRN PRN PRN Reason: Constipation Enoxaparin Sodium (Enoxaparin 40 Mg/0.4 Ml Syringe) 40 mg SC BID [facility] Last Admin: 12/23/20 09:31 Dose: Not Given Documented by: Furosemide (Furosemide 40 Mg Tablet) 40 mg PO DAILY [facility] Last Admin: 12/23/20 09:26 Dose: 40 mg Documented by: Haloperidol Lactate (Haloperidol Lactate 5 Mg/Ml Vial) 5 mg IM Q6H PRN PRN PRN Reason: agitation Last Admin: 12/23/20 07:49 Dose: 5 mg Documented by: Sodium Chloride () 250 mls @ 15 mls/hr IV .[id number] PRN PRN Reason: Saline Flush Last Infusion: 12/20/20 20:31 Dose: Infused Documented by: Sodium Chloride () 250 mls @ 15 mls/hr IV .[id number] PRN PRN Reason: Additional IVPB Infusion Insulin Human Lispro (Insulin Lispro 100 Unit/Ml Insuln.Pen) 0 unit SC ACHS [facility]; Protocol Last Admin: 12/23/20 12:45 Dose: Not Given Documented by: Labetalol HCl (Labetalol (Prefilled) 20 Mg/4 Ml) 20 mg IV Q6H PRN PRN Reason: SBP GREATER THAN 180 Last Admin: 12/17/20 18:54 Dose: 20 mg Documented by: Metoprolol Tartrate (Metoprolol Tartrate 50 Mg Tablet) 50 mg PO BID [facility] Last Admin: 12/23/20 09:27 Dose: 50 mg Documented by: Nicotine (Nicotine 21 Mg Patch) 21 mg TD DAILY [facility] Last Admin: 12/23/20 09:27 Dose: 21 mg Documented by: Quetiapine Fumarate (Quetiapine 100 Mg Tablet) 300 mg PO BID [facility] Last Admin: 12/23/20 09:26 Dose: 300 mg Documented by: Sodium Chloride (0.9% Saline Lock 10 Ml Syringe) 10 - 40 ml IV UD PRN PRN Reason: SALINE FLUSH Last Admin: 12/20/20 16:43 Dose: 10 ml Documented by: Discharge Diet: 2000 Calorie Control Diet Discharge Activity: Return to Normal Activity, No Restrictions Home Medications: Medications to take at Discharge Sumatriptan Succinate [Imitrex] 100 mg PO .X1 PRN 06/21/18 Metoprolol Tartrate [Lopressor (beta micah)] 50 mg PO BID 09/13/19 Gabapentin 600 mg PO BID 09/29/19 Clonidine HCl 0.1 mg PO BID 12/21/20 [place] Carbonate [[place] Carbonate ER] 300 mg PO QHS 12/21/20 Amoxicillin/Potassium Clav [Augmentin 875-125 Tablet] 1 each PO BID #4 tablet 12/23/20 Following Prescriptions Were Given to Patient: Amoxicillin/Potassium Clav [Augmentin 875-125 Tablet] 1 each PO BID #4 tablet Transmission Status: Received by [facility] Primary Care Physician: Abiel Marin DO [Primary Care Provider] - Please follow up with your Primary Care Physician in: 1-2 WEEKS Please Follow Up With: 180 When: jonathon When: PSYCHIATIRST Please Follow Up With: 1 WEEK Medical Necessity - Tobacco Use Smoking Status: Current every day smoker Meaningful Use Info Meaningful Use Diagnoses (Choose all that apply): None applicable Inpatient E&M: 86789 [facility]
--- NOTE | 2020-12-23 15:04 | NURSING ---
Lila, [employer] ch[employer] worker, came to re-evaluate patient. Per Lila, patient is cleared to be discharged home and follow up with his psychiatrist and [facility]. Lila also confirmed that a pediatric social worker would f/u with patient after discharge. Dr. Mccormick notified, discharge home order in and paperwork done.
--- NOTE | 2020-12-24 14:37 | CASEMGMT ---
SHAUNA GALLEGOS Discharge Follow-up Phone Call: WANDA: 16 Strata: 4 Call Date: 12/24/20 Discharge Date: 12/23/20 Time of Call: 1430 Duration: 1 min Admitting Diagnosis: COPD, Methamphetamine abuse RN CM attempted to complete follow-up phone call after recent hospitalization. Attempted x2 to complete call. Phone rings and then is disconnected. CM unable to leave message for return call. Patient was advised per discharge instructions to follow-up with [facility] and his psychiatrist.
== END 2020-12-23 15:13 | disposition home or self-care (01) | DRG 194 ==
LOC: ED 16:44 → ICU 18:08
PROVIDERS: Internal Medicine Critical Care Medicine; Nurse Practitioner Family; Admitting Provider Internal Medicine; Emergency Provider Emergency Medicine; PCP Family Medicine; Visit Provider Internal Medicine
DX: I11.0 Hypertensive heart disease with heart failure (principal); I50.33 Acute on chronic diastolic (congestive) heart failure; I16.1 Hypertensive emergency; J96.01 Acute respiratory failure with hypoxia; I27.21 Secondary pulmonary arterial hypertension; J69.0 Pneumonitis due to inhalation of food and vomit; N17.9 Acute kidney failure, unspecified; G92 Toxic encephalopathy; E11.65 Type 2 diabetes mellitus with hyperglycemia; E66.2 Morbid (severe) obesity with alveolar hypoventilation; J44.9 Chronic obstructive pulmonary disease, unspecified; Z91.19 Patient's noncompliance with other medical treatment and regimen; Z53.20 Procedure and treatment not carried out because of patient's decision for unspecified reasons; Z68.43 Body mass index [BMI] 50.0-59.9, adult; Z20.822 Contact with and (suspected) exposure to COVID-19; F15.10 Other stimulant abuse, uncomplicated; F31.81 Bipolar II disorder; F41.0 Panic disorder [episodic paroxysmal anxiety]; F17.210 Nicotine dependence, cigarettes, uncomplicated; Z79.899 Other long term (current) drug therapy
CPT/HCPCS: 36600; 51702; 71045; 80048; 80053; 80307; 82803; 82962; 83036; 83605; 83880; 84484; 85025; 85379; 87040; 87086; 87426; 93005; 94002; 94003; 94640; 96372; 99285; J7050; A4216; J0295; J1940; J3486